=== PATIENT | female | born 1935 | race Caucasian/White ===

== ENCOUNTER 2021-06-20 22:02 | Inpatient (IN) ==
[2021-06-20] MEDS ORDERED: ACETAMINOPHEN 1,000 MG/100 ML VIAL IV STA (23:31)
[2021-06-20] MEDS ORDERED: MoRPHine SULFATE 2 MG/ML CARP IV STA (23:31)
--- NOTE | 2021-06-20 23:37 | Emergency Department Note ---
History of Present Illness General Chief complaint: Abdominal Pain Stated complaint: Abdominal Pain Time Seen by Provider: 06/20/21 23:04 Source: patient and family Mode of arrival: EMS Limitations: no limitations History of Present Illness Provider complaint: Flank pain Maximum Pain Intensity: 6 Treatments prior to arrival: none This is an 86-year-old female presents emergency department with son at bedside due to concern for flank and abdominal pain. Patient states she has not been feeling well over the last several days admitting to intermittent nausea and qu easiness and decreased oral intake. She states that today she began having left low back/flank pain radiating to her left lower quadrant of her abdomen. She states pain is colicky in nature, no change with position. She states she did have a normal bowel movement today. She denies fevers or chills or change in urine. Patient does have metastatic breast cancer according to the son at bedside and states her medications were recently changed due to a perceived adverse drug reaction. No other recent change in medications or diet. Patient follows with Dr. Nunn of oncology. Pt seen during a time of high acuity and national emergency pandemic while wearing PPE. Home Medications Medication Instructions Recorded Confirmed Type felodipine 10 mg tablet,extended 10 mg PO DAILY 02/05/20 06/20/21 History release 24 hr fluoxetine 20 mg capsule 20 mg PO DAILY 02/05/20 06/20/21 History furosemide 40 mg tablet 40 mg PO DAILY 02/05/20 06/20/21 History losartan 100 mg tablet 100 mg PO DAILY 02/05/20 06/20/21 History anastrozole 1 mg tablet (Arimidex) 1 mg PO DAILY 03/18/20 06/20/21 History aspirin 81 mg tablet,delayed 81 mg PO Q OTHER DAY tab 03/18/20 06/20/21 History release cholecalciferol (vitamin D3) 25 25 mcg PO DAILY 03/18/20 06/20/21 History mcg (1,000 unit) capsule acetaminophen 500 mg tablet 500 mg PO Q6H PRN tab 09/16/20 06/20/21 History (Tylenol Extra Strength) ascorbate calcium (vitamin C) 500 500 mg PO DAILY 09/16/20 06/20/21 History mg tablet docusate sodium 100 mg capsule 100 mg PO BID 09/16/20 06/20/21 History (Colace) rosuvastatin 40 mg tablet 40 mg PO HS 09/16/20 06/20/21 History sennosides 8.6 mg tablet (Senokot) 8.6 mg PO BID 09/16/20 06/20/21 History vit no.133-ferrous 1 tab PO DAILY 06/20/21 06/20/21 History fumarate 28 mg-folic acid 800 mcg tablet () vitamin E 400 unit capsule 400 unit PO DAILY 06/20/21 06/20/21 History Allergies Allergy/AdvReac Type Severity Reaction Status Date / Time Beta-Blockers Allergy Severe FACIAL/MOUTH Verified 06/20/21 22:41 (Beta-Adrenergic Bloc SWELLING Past Med/Surg History Medical History Bone metastases History of left breast cancer History of Mohs micrographic surgery for skin cancer Hx of basal cell carcinoma Hx of essential hypertension Hx of multiple pulmonary nodules Surgical History History of total bilateral knee replacement Hx of cholecystectomy Hx of total hysterectomy Family History Sister Heart disease Brother Heart disease Mother Cancer, Onset Age: 56 opened for surgery, found to be widespread metastasis Father Lung disease Son Hypertension Social History Smoking Status: Never smoker Second Hand Exposure: Yes; Hx Alcohol Use: No Hx Substance Use: No Preferred Language: Lithuanian Communication Ability: Effective Visual Impairment: Limited Hearing Ability: Hard of Hearing [employer] Required: No Beliefs That Will Affect Care: None marital status: / Current Living Situation: Alone Current Living Situation Comment: [facility]; sister lives nearby in same development current occupational status: 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 How many Children do You have: 1 Feels Safe at Home: Yes Childhood Exposure to Second-Hand Smoke: Yes caffeine: Yes (coffee 1 cup in am) during the past year weight has: decreased > 10 lbs Dental Care, Regularly: Yes Physical Activity Frequency: Does not Exercise Seatbelt Use: always Sunscreen Use: Yes Assistive Devices: Glasses, Hearing Aid - Bilateral and Walker Review of Systems A total of 10 systems reviewed and were otherwise negative All systems reviewed & are unremarkable except as noted in HPI & below Physical Exam Vital Signs Vital Signs - 24 hr 06/20/21 21:50 06/21/21 01:54 Temperature 37 C Temperature Source Oral Pulse Rate 83 Pulse Rate [Right] 69 Pulse Rhythm [Right] Regular Respiratory Rate 20 16 Respiratory Effort / Characteristics Non-Labored Non-Labored Respiratory Depth Normal Normal Blood Pressure 191/79 H Blood Pressure [Right Arm] 164/74 H Blood Pressure Mean 116 Blood Pressure Mean [Right Arm] 104 Pulse Oximetry 95 94 Oxygen Delivery Method Room Air Room Air Sepsis Recent Fever Within 48 Hours No Sepsis New/Unexplained Change in Mental Status No Sepsis Action Taken by Nursing No Action Required GENERAL: alert, unwell appearing, well nourished, mild distress, non-toxic EYE EXAM: normal conjunctiva, PERRL and EOM's grossly intact OROPHARYNX: no exudate, no erythema, lips, buccal mucosa, and tongue normal and mucous membranes are moist NECK: supple, no nuchal rigidity, no adenopathy, non-tender LUNGS: Clear to auscultation. Normal chest wall mechanics, no w/r/r HEART: no murmurs, S1 normal and S2 normal ABDOMEN: abdomen soft, non-tender, normo-active bowel sounds, no masses, no rebound or guarding. Pain with palpation over the left lateral flank. BACK: Back is symmetrical on inspection and there is no deformity, no midline tenderness, no CVA tenderness. SKIN: no rashes and no bruising UPPER EXTREMITIES: upper extremities are grossly normal. FROM, nml pulses b/l. LOWER EXTREMITIES: No pitting edema. FROM, nml pulses b/l. NEURO EXAM: Normal sensorium, cranial nerves II-XII grossly intact, normal speech, no gross weakness of arms, no gross weakness of legs. Gross sensation intact. Course Course 0315: Patient states pain is starting to return, nausea has resolved since being given medication. Patient was very unsteady and weak and attempting to get up and use the bathroom in the room. Son is concerned as she is from home and has no other help. He also has concerns about giving her additional pain medication as it could have side effects causing her to be a fall risk in addition. [id number]: Discussed with Dr. Walters. Administered Medications Sodium Chloride (Nss 1000ml) 1,000 mls @ 50 mls/hr IV .Q20H ONE Stop: 06/22/21 00:33 Last Admin: 06/21/21 06:21 Dose: 50 mls/hr Documented by: [id number] Discontinued Medications Acetaminophen (Ofirmev) 1,000 mg in 100 mls @ 400 mls/hr IV NOW STA Stop: 06/20/21 23:45 Last Infusion: 06/21/21 01:07 Dose: 0 mls/hr Documented by: [id number] Admin: 06/20/21 23:55 Dose: 400 mls/hr Documented by: [id number] Sodium Chloride (Nss 1000ml) 1,000 mls @ 500 mls/hr IV .Q2H VALENT[place] Stop: 07/21/21 00:29 Last Admin: 06/21/21 03:30 Dose: Not Given Documented by: [id number] Infusion: 06/21/21 03:29 Dose: 0 mls/hr Documented by: [id number] Admin: 06/21/21 01:00 Dose: 500 mls/hr Documented by: [id number] Sodium Chloride (Nss 1000ml) 1,000 mls @ 125 mls/hr IV .Q8H [place] Stop: 07/21/21 03:14 Last Admin: 06/21/21 04:51 Dose: Not Given Documented by: [id number] Ketorolac Tromethamine (Ketorolac Tromethamine 15 Mg/Ml Vial) 10 mg IV NOW ONE Stop: 06/21/21 03:17 Last Admin: 06/21/21 03:41 Dose: 10 mg Documented by: [id number] Losartan Potassium (Losartan Potassium 50 Mg Tab) 100 mg PO NOW STA Stop: 06/21/21 03:49 Last Admin: 06/21/21 04:50 Dose: 100 mg Documented by: [id number] Morphine Sulfate (Morphine Sulfate 2 Mg/Ml Carp) 2 mg IV NOW STA Stop: 06/20/21 23:32 Last Admin: 06/20/21 23:55 Dose: 2 mg Documented by: [id number] Morphine Sulfate (Morphine Sulfate 2 Mg/Ml Carp) 2 mg IV NOW STA Stop: 06/21/21 03:16 Last Admin: 06/21/21 03:42 Dose: 2 mg Documented by: [id number] Ondansetron HCl (Ondansetron Inj 2 Mg/Ml 2 Ml Vial) 4 mg IV NOW STA Stop: 06/20/21 23:52 Last Admin: 06/20/21 23:55 Dose: 4 mg Documented by: [id number] Medical Decision Making Differential Diagnosis Differential diagnoses includes but is not limited to gastritis, peptic ulcer disease, GERD, gallbladder disease, pancreatitis, small bowel obstruction, acute coronary syndrome, pericarditis, ischemic bowel, irritable bowel disease, irritable bowel syndrome, appendicitis, diverticulitis, malignancy, hernia, urinary tract infection, torsion, [/ectopic (if female)], perforation, trauma, infectious. Medical Records Attestation: I reviewed the patient's medical records. Home Medications Current Medication List: was personally reviewed by me Laboratory Data Attestation: I reviewed the patient's lab results. Result diagrams: 06/20/21 22:24 06/20/21 22:24 Lab Results 06/20/21 06/20/21 06/20/21 Range/Units 22:24 22:24 22:24 WBC 6.63 (4.8-10.8) K/uL RBC 4.46 (4.2-5.4) M/uL Hgb 12.3 (12.0-16.0) g/dL Hct 38.7 (37-47) % MCV 86.8 (80-100) fL MCH 27.6 (25-34) pg MCHC 31.8 L (32-36) g/dL RDW Std Deviation 55.1 H (36.4-46.3) fL RDW Coeff of Ravin 17.5 H (11.5-14.5) % Plt Count 302 (130-400) K/uL MPV 9.1 (7.4-10.4) fL Immature Gran % (Auto) 0.5 % Neut % (Auto) 70.7 % Lymph % (Auto) 17.6 % Dickenson % (Auto) 10.1 % Eos % (Auto) 0.9 % Baso % (Auto) 0.2 % Neut # (Auto) 4.69 (1.4-6.5) K/uL Lymph # (Auto) 1.17 L (1.2-3.4) K/uL Dickenson # (Auto) 0.67 H (0.11-0.59) K/uL Eos # (Auto) 0.06 (0-0.5) K/uL Baso # (Auto) 0.01 (0-0.2) K/uL Immature Gran # (Auto) 0.03 H (0.00-0.02) K/uL Sodium 133 L (136-145) mmol/L Potassium 3.9 (3.5-5.1) mmol/L Chloride 97 L (98-107) mmol/L Carbon Dioxide 25 (21-32) mmol/L Anion Gap 11 (3-11) BUN 16 (6-23) mg/dl Creatinine 0.57 L (0.6-1.2) mg/dl Est Cr Clr Drug Dosing 70.2 ml/min Est GFR ( Amer) 98.0 ml/min Est GFR (Non-Af Amer) 84.5 ml/min BUN/Creatinine Ratio 28.1 H (10-20) Glucose 146 H (70-99(Fasting)) mg/dl Calcium 9.5 (8.5-10.1) mg/dl Magnesium 2.2 (1.7-2.4) mg/dl Total Bilirubin 0.5 (0.2-1.0) mg/dl AST 16 (13-39) U/L ALT 9 (7-52) U/L Alkaline Phosphatase 69 (34-104) U/L Total Creatine Kinase 27 (26-192) U/L Total Protein 7.8 (6.0-8.3) gm/dl Albumin 4.1 (3.4-5.0) gm/dl Globulin 3.7 (2.5-4.0) gm/dl Albumin/Globulin Ratio 1.1 (0.9-2) Lipase 23 (11-82) U/L TSH (0.300-4.500) uIu/ml Urine Color Urine Appearance (Clear) Urine pH (4.5-7.5) Ur Specific [place] (1.000-1.030) Urine Protein (Negative) Urine Glucose (UA) (Negative) Urine Ketones (Negative) Urine Blood (Negative) Urine Nitrite (Negative) Urine Bilirubin (Negative) Urine Urobilinogen (Negative) Ur Leukocyte Esterase (Negative) Urine WBC (Auto) (0-5) /hpf Urine RBC (Auto) (0-4) /hpf U Hyaline Cast (Auto) (0-5) /lpf U Epithel Cells (Auto) (0-5) /lpf Urine Bacteria (Auto) (Negative) Ur Renal Epithelial Cell (0-5) /lpf SARS-CoV-2, RNA, NAAT (NEGATIVE) 06/20/21 06/21/21 06/21/21 Range/Units 22:24 02:19 03:46 WBC (4.8-10.8) K/uL RBC (4.2-5.4) M/uL Hgb (12.0-16.0) g/dL Hct (37-47) % MCV (80-100) fL MCH (25-34) pg MCHC (32-36) g/dL RDW Std Deviation (36.4-46.3) fL RDW Coeff of Ravin (11.5-14.5) % Plt Count (130-400) K/uL MPV (7.4-10.4) fL Immature Gran % (Auto) % Neut % (Auto) % Lymph % (Auto) % Dickenson % (Auto) % Eos % (Auto) % Baso % (Auto) % Neut # (Auto) (1.4-6.5) K/uL Lymph # (Auto) (1.2-3.4) K/uL Dickenson # (Auto) (0.11-0.59) K/uL Eos # (Auto) (0-0.5) K/uL Baso # (Auto) (0-0.2) K/uL Immature Gran # (Auto) (0.00-0.02) K/uL Sodium (136-145) mmol/L Potassium (3.5-5.1) mmol/L Chloride (98-107) mmol/L Carbon Dioxide (21-32) mmol/L Anion Gap (3-11) BUN (6-23) mg/dl Creatinine (0.6-1.2) mg/dl Est Cr Clr Drug Dosing ml/min Est GFR ( Amer) ml/min Est GFR (Non-Af Amer) ml/min BUN/Creatinine Ratio (10-20) Glucose (70-99(Fasting)) mg/dl Calcium (8.5-10.1) mg/dl Magnesium (1.7-2.4) mg/dl Total Bilirubin (0.2-1.0) mg/dl AST (13-39) U/L ALT (7-52) U/L Alkaline Phosphatase (34-104) U/L Total Creatine Kinase (26-192) U/L Total Protein (6.0-8.3) gm/dl Albumin (3.4-5.0) gm/dl Globulin (2.5-4.0) gm/dl Albumin/Globulin Ratio (0.9-2) Lipase (11-82) U/L TSH 3.216 (0.300-4.500) uIu/ml Urine Color Yellow Urine Appearance Clear (Clear) Urine pH 7.0 (4.5-7.5) Ur Specific [place] 1.012 (1.000-1.030) Urine Protein Trace H (Negative) Urine Glucose (UA) Negative (Negative) Urine Ketones Negative (Negative) Urine Blood Negative (Negative) Urine Nitrite Negative (Negative) Urine Bilirubin Negative (Negative) Urine Urobilinogen Negative (Negative) Ur Leukocyte Esterase Trace H (Negative) Urine WBC (Auto) 1-5 (0-5) /hpf Urine RBC (Auto) 0-4 (0-4) /hpf U Hyaline Cast (Auto) 1-5 (0-5) /lpf U Epithel Cells (Auto) >30 H (0-5) /lpf Urine Bacteria (Auto) Negative (Negative) Ur Renal Epithelial Cell 0-5 (0-5) /lpf SARS-CoV-2, RNA, NAAT NEGATIVE (NEGATIVE) Imaging Data Radiologist's Impression: CT abdomen pelvis without contrast: Comparison is made to CT abdomen/pelvis on 02/05/2020. Moderate right and small left pleural effusions. Nonspecific nodular density in the left breast measuring approximately 2.2 cm. This may represent neoplasm. Probably increased prominence of a 1.4 cm nodule in the lingula. Probable 8 mm nodule at the left lung base posteriorly. 1.1 cm nodular density in the lingula. These could represent pulmonary metastases. Sclerotic lesions throughout the visualized bones. Concerning for osseous metastases. Coronary artery, aortic valve, and mitral annular calcifications. Small hiatal hernia. Evaluation of the stomach was limited by under distention. Prior cystectomy. No h ydronephrosis or stone. Phleboliths in the pelvis. Diverticulosis without evidence of diverticulitis. No small bowel obstruction. Normal appendix. Atherosclerotic changes of the vasculature. No aortic aneurysm. Grade 1 anterolisthesis of L4 on L5. Distended bladder. No significant bladder wall thickening or stone. Prior hysterectomy. Small fat-containing umbilical hernia. Radiologist: Nagi Jaramillo MD MDM Narrative This is an 86-year-old female who presents emergency department from home due to concern for increased abdominal pain, nausea, and decreased oral intake. Son at bedside helps with history. Patient does have known distant metastases from breast cancer that is being followed by Dr. Nunn of oncology. Patient was afebrile and hemodynamically stable although actively retching into an emesis bag on my initial evaluation. Patient given Zofran for nausea and morphine for pain which did help. Patient was given gentle IV fluid rehydration. Labs are reassuring, and CT imaging did reveal multiple areas of metastasis however no other acute process. Urinalysis reassuring. Patient did receive several doses of pain medication. She did not have any further nausea or vomiting. Due to concern for persistent weakness, and need for appropriate pain control in an elderly woman with known malignancy, case discussed with hospitalist for additional evaluation and management. An order was placed for continuous cardiac monitoring. The monitor shows a rate of _60_ with _normal sinus_ rhythm. Impression & Plan Acute left flank pain, Metastatic breast cancer, Abdominal pain, Nausea, Generalized weakness Discharge Plan Visit Data Chief Complaint: Abdominal Pain Stated Complaint: Abdominal Pain ED Provider: Noris Coppola Discharge Problem: Acute left flank pain, Metastatic breast cancer, Abdominal pain, Nausea, Generalized weakness Patient Disposition: Admitted As Inpatient Discharge Instructions Interventions: ED Discharge Assessment Last Done: 06/21/21 05:51
[2021-06-20 23:44] LABS: Basophils # (auto) 0.01 K/uL (0-0.2); Basophils % (auto) 0.2 %; Eosinophils # (auto) 0.06 K/uL (0-0.5); Eosinophils % (auto) 0.9 %; Hematocrit (blood only) 38.7 % (37-47); Hemoglobin 12.3 g/dL (12.0-16.0); Immature Granulocytes # (auto) 0.03 K/uL (0.00-0.02); Immature Granulocytes % (auto) 0.5 %; Lymphocytes # (auto) 1.17 K/uL (1.2-3.4); Lymphocytes % (auto) 17.6 %; Mean Corpuscular Hemoglobin 27.6 pg (25-34); Mean Corpuscular Hgb Conc 31.8 g/dL (32-36); Mean Corpuscular Volume 86.8 fL (80-100); Mean Platelet Volume 9.1 fL (7.4-10.4); Monocytes # (auto) 0.67 K/uL (0.11-0.59); Monocytes % (auto) 10.1 %; Neutrophils # (auto) 4.69 K/uL (1.4-6.5); Neutrophils % (auto) 70.7 %; Platelet Count 302 K/uL (130-400); RDW Coefficient of Variation 17.5 % (11.5-14.5); RDW Standard Deviation 55.1 fL (36.4-46.3); Red Blood Count 4.46 M/uL (4.2-5.4); White Blood Count 6.63 K/uL (4.8-10.8)
[2021-06-20] MEDS ORDERED: ONDANSETRON INJ 2 MG/ML 2 ML VIAL IV STA (23:51)
[2021-06-20 23:53] LABS: Albumin Globulin Ratio 1.1 (0.9-2); Albumin Level 4.1 gm/dl (3.4-5.0); BUN Creatinine Ratio 28.1 (10-20); Bilirubin,Total 0.5 mg/dl (0.2-1.0); Calcium 9.5 mg/dl (8.5-10.1); Creatinine Clr Calc Pharmacy 70.2 ml/min; Est GFR (Non-African American) 84.5 ml/min; Globulin 3.7 gm/dl (2.5-4.0); Magnesium 2.2 mg/dl (1.7-2.4); Potassium 3.9 mmol/L (3.5-5.1); Total Protein 7.8 gm/dl (6.0-8.3)
[2021-06-21] MEDS: SODIUM CHLORIDE 0.9% 1000ML 1,000 ML IV SCH ×2 (01:00→03:30)
[2021-06-21 02:31] LABS: Appearance Urine Clear (Clear); Bacteria Urine Automated Negative (Negative); Bilirubin Urine Negative (Negative); Blood Urine Negative (Negative); Color Urine Yellow; Epithelial Cell Urine Auto >30 /lpf (0-5); Glucose Urine UA Negative (Negative); Ketones Urine Negative (Negative); Leukocyte Esterase Urine Trace (Negative); Nitrite Urine Negative (Negative); Protein Urine Trace (Negative); RBC Urine Automated 0-4 /hpf (0-4); Specific Gravity Urine 1.012 (1.000-1.030); Urobilinogen Urine Negative (Negative)
[2021-06-21 02:49] LABS: Renal Epithelial Cells Urine 0-5 /lpf (0-5)
[2021-06-21] MEDS ORDERED: SODIUM CHLORIDE 0.9% 1000ML 1,000 ML IV SCH (03:15)
[2021-06-21] MEDS ORDERED: MoRPHine SULFATE 2 MG/ML CARP IV STA (03:15)
[2021-06-21] MEDS ORDERED: KETOROLAC TROMETHAMINE 15 MG/ML VIAL IV ONE (03:16)
--- NOTE | 2021-06-21 03:39 | History & Physical Report ---
Date of Service June 21, 2021 Assessment & Plan (1) Flank pain: Plan: Probably cancer pain breast cancer with lung and bone mets status post surgery, radiation, ongoing hormonal and Xgeva therapy Extensive osseous mets on imaging Hypertensive urgency secondary to above Hyperlipidemia on statin Rx DM2 diet-controlled, well-controlled as of recent hemoglobin A1c of 6.1 last year. GMF Analgesia Follow official CT results Further management pending official CT results and response to initial analgesic regimen Facilitate home BP meds Basal insulin, ISS BG goal 1 10-1 40, carb count coverage, update hemoglobin A1c DVT prophylaxis. Lovenox subcu DNR. Patient son requesting updates for providers. Mr. Rajinder Medel, contact #[phone]. Text document was generated using [employer] voice recognition software. It may contain grammatical or spelling errors. Kindly contact undersigned for clarification of any documentation item in question. History of Present Illness Chief Complaint: Worsening left flank pain Primary Care Provider: Tawana Nunn MD History obtained from patient, family, and records. Medical history significant for hypertension, hyperlipidemia, breast cancer with lung and bone mets status radiation, ongoing hormonal and Xgeva therapy, anxiety disorder, DM2 diet-controlled. Patient noted worsening achy left flank discomfort last week. No relief with Tylenol. Some radiation to the belly. No radiation to the legs/no weakness. No chest pain, no SOB. No hematuria symptoms. No recollection of recent trauma.0 Intractable pain at the ER. 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 Allergies Allergy/AdvReac Type Severity Reaction Status Date / Time Beta-Blockers Allergy Severe FACIAL/MOUTH Verified 06/20/21 22:41 (Beta-Adrenergic Bloc SWELLING Home Medications Medication Instructions Recorded Confirmed Type felodipine 10 mg tablet,extended 10 mg PO DAILY 02/05/20 06/20/21 History release 24 hr fluoxetine 20 mg capsule 20 mg PO DAILY 02/05/20 06/20/21 History furosemide 40 mg tablet 40 mg PO DAILY 02/05/20 06/20/21 History losartan 100 mg tablet 100 mg PO DAILY 02/05/20 06/20/21 History anastrozole 1 mg tablet (Arimidex) 1 mg PO DAILY 03/18/20 06/20/21 History aspirin 81 mg tablet,delayed 81 mg PO Q OTHER DAY tab 03/18/20 06/20/21 History release cholecalciferol (vitamin D3) 25 25 mcg PO DAILY 03/18/20 06/20/21 History mcg (1,000 unit) capsule acetaminophen 500 mg tablet 500 mg PO Q6H PRN tab 09/16/20 06/20/21 History (Tylenol Extra Strength) ascorbate calcium (vitamin C) 500 500 mg PO DAILY 09/16/20 06/20/21 History mg tablet docusate sodium 100 mg capsule 100 mg PO BID 09/16/20 06/20/21 History (Colace) rosuvastatin 40 mg tablet 40 mg PO HS 09/16/20 06/20/21 History sennosides 8.6 mg tablet (Senokot) 8.6 mg PO BID 09/16/20 06/20/21 History vit no.133-ferrous 1 tab PO DAILY 06/20/21 06/20/21 History fumarate 28 mg-folic acid 800 mcg tablet () vitamin E 400 unit capsule 400 unit PO DAILY 06/20/21 06/20/21 History Past Med/Surg History Medical History Bone metastases History of left breast cancer History of Mohs micrographic surgery for skin cancer Hx of basal cell carcinoma Hx of essential hypertension Hx of multiple pulmonary nodules Surgical History History of total bilateral knee replacement Hx of cholecystectomy Hx of total hysterectomy Family History Sister Heart disease Brother Heart disease Mother Cancer, Onset Age: 56 opened for surgery, found to be widespread metastasis Father Lung disease Son Hypertension Social History Smoking Status: Never smoker Second Hand Exposure: No; Do You Dip or Chew Tobacco: No; Tobacco Cessation Education Requested by Patient: No Hx Alcohol Use: No Hx Substance Use: No Preferred Language: British Communication Ability: Effective Visual Impairment: Limited Hearing Ability: Hard of Hearing Clip Coater Required: No Beliefs That Will Affect Care: None marital status: / Current Living Situation: Other Current Living Situation Comment: [place] (Apartment complex). 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 How many Children do You have: 1 Other Information That Helps Us Care for You: No Feels Safe at Home: Yes Safety Concerns: Feels Safe At This Time Childhood Exposure to Second-Hand Smoke: Yes caffeine: Yes (coffee 1 cup in am) during the past year weight has: decreased > 10 lbs Dental Care, Regularly: Yes Physical Activity Frequency: Does not Exercise Seatbelt Use: always Sunscreen Use: Yes Assistive Devices: Glasses, Hearing Aid - Bilateral, Oxygen - at Night and Walker Review of Systems Review of Systems: As per HPI, all other systems reviewed and negative Physical Exam Physical Exam: GENERAL: Slightly uncomfortable, pleasant, obese, no respiratory distress SKIN: Normal color, warm HEENT: [place] palpebral conjunctivae, no ptosis, dry buccal mucosa NECK : Supple, short neck, no tenderness CHEST : CTA, no tenderness HEART : RRR, no obvious murmurs ABDOMEN: Some distention, nontender BACK : Left flank tenderness EXTREMITIES : Minimal LE swelling, no LE tenderness, no other conspicuous deformities noted NEUROLOGIC : Coherent, no facial asymmetry, no other gross focality Results & Data Results & Data ([facility]) Vital Signs (Past 12 Hours) Vital Signs Temp Pulse Pulse Resp BP BP Pulse Ox 06/21/21 01:54 69 16 164/74 H 94 06/20/21 21:50 37 C 83 20 191/79 H 95 Laboratory Results Laboratory Results WBC 6.63 K/uL (4.8-10.8) 06/20/21 22:24 RBC 4.46 M/uL (4.2-5.4) 06/20/21 22:24 Hgb 12.3 g/dL (12.0-16.0) 06/20/21 22:24 Hct 38.7 % (37-47) 06/20/21 22:24 MCV 86.8 fL (80-100) 06/20/21 22:24 MCH 27.6 pg (25-34) 06/20/21 22:24 MCHC 31.8 g/dL (32-36) L 06/20/21 22:24 RDW Std Deviation 55.1 fL (36.4-46.3) H 06/20/21 22:24 RDW Coeff of [place] 17.5 % (11.5-14.5) H 06/20/21 22:24 Plt Count 302 K/uL (130-400) 06/20/21 22:24 MPV 9.1 fL (7.4-10.4) 06/20/21 22:24 Immature Gran % (Auto) 0.5 % 06/20/21 22:24 Neut % (Auto) 70.7 % 06/20/21 22:24 Lymph % (Auto) 17.6 % 06/20/21 22:24 [place] % (Auto) 10.1 % 06/20/21 22:24 Eos % (Auto) 0.9 % 06/20/21 22:24 Baso % (Auto) 0.2 % 06/20/21 22:24 Neut # (Auto) 4.69 K/uL (1.4-6.5) 06/20/21 22:24 Lymph # (Auto) 1.17 K/uL (1.2-3.4) L 06/20/21 22:24 [place] # (Auto) 0.67 K/uL (0.11-0.59) H 06/20/21 22:24 Eos # (Auto) 0.06 K/uL (0-0.5) 06/20/21 22:24 Baso # (Auto) 0.01 K/uL (0-0.2) 06/20/21 22:24 Immature Gran # (Auto) 0.03 K/uL (0.00-0.02) H 06/20/21 22:24 Sodium 133 mmol/L (136-145) L 06/20/21 22:24 Potassium 3.9 mmol/L (3.5-5.1) 06/20/21 22:24 Chloride 97 mmol/L (98-107) L 06/20/21 22:24 Carbon Dioxide 25 mmol/L (21-32) 06/20/21 22:24 Anion Gap 11 (3-11) 06/20/21 22:24 BUN 16 mg/dl (6-23) 06/20/21 22:24 Creatinine 0.57 mg/dl (0.6-1.2) L 06/20/21 22:24 Est Cr Clr Drug Dosing 70.2 ml/min 06/20/21 22:24 Est GFR ( Amer) 98.0 ml/min 06/20/21 22:24 Est GFR (Non-Af Amer) 84.5 ml/min 06/20/21 22:24 BUN/Creatinine Ratio 28.1 (10-20) H 06/20/21 22:24 Glucose 146 mg/dl (70-99(Fasting)) H 06/20/21 22:24 Calcium 9.5 mg/dl (8.5-10.1) 06/20/21 22:24 Magnesium 2.2 mg/dl (1.7-2.4) 06/20/21 22:24 Total Bilirubin 0.5 mg/dl (0.2-1.0) 06/20/21 22:24 AST 16 U/L (13-39) 06/20/21 22:24 ALT 9 U/L (7-52) 06/20/21 22:24 Alkaline Phosphatase 69 U/L (34-104) 06/20/21 22:24 Total Protein 7.8 gm/dl (6.0-8.3) 06/20/21 22:24 Albumin 4.1 gm/dl (3.4-5.0) 06/20/21 22:24 Globulin 3.7 gm/dl (2.5-4.0) 06/20/21 22:24 Albumin/Globulin Ratio 1.1 (0.9-2) 06/20/21 22:24 Lipase 23 U/L (11-82) 06/20/21 22:24 Urine Color Yellow 06/21/21 02:19 Urine Appearance Clear (Clear) 06/21/21 02:19 Urine pH 7.0 (4.5-7.5) 06/21/21 02:19 Ur Specific [place] 1.012 (1.000-1.030) 06/21/21 02:19 Urine Protein Trace (Negative) H 06/21/21 02:19 Urine Glucose (UA) Negative (Negative) 06/21/21 02:19 Urine Ketones Negative (Negative) 06/21/21 02:19 Urine Blood Negative (Negative) 06/21/21 02:19 Urine Nitrite Negative (Negative) 06/21/21 02:19 Urine Bilirubin Negative (Negative) 06/21/21 02:19 Urine Urobilinogen Negative (Negative) 06/21/21 02:19 Ur Leukocyte Esterase Trace (Negative) H 06/21/21 02:19 Urine WBC (Auto) 1-5 /hpf (0-5) 06/21/21 02:19 Urine RBC (Auto) 0-4 /hpf (0-4) 06/21/21 02:19 U Hyaline Cast (Auto) 1-5 /lpf (0-5) 06/21/21 02:19 U Epithel Cells (Auto) >30 /lpf (0-5) H 06/21/21 02:19 Urine Bacteria (Auto) Negative (Negative) 06/21/21 02:19 Ur Renal Epithelial Cell 0-5 /lpf (0-5) 06/21/21 02:[address] abdomen pelvis initial read: Moderate right and small left pleural effusions. Nonspecific nodular densityin the left breast measuring approximately2.2 cm. This mayrepresent neoplasm. Probablyincreased prominence of a 1.4 cmnodule in the lingula. Probable 8 mmnodule at the left lung base posteriorly. 1.1 cmnodular densityin the lingula. These could represent pulmonary metastases. Sclerotic lesions throughout the visualized bones, concerning for osseous metastases. Coronaryartery, aortic valve, and mitral annular calcifications. Small hiatal hernia. Evaluation of the stomach is limited byunderdistention. Prior cholecystectomy. No hydronephrosis or stone. Phleboliths in the pelvis. Diverticulosiswithout evidence of diverticulitis. No small bowel obstruction. Normal appendix. Atherosclerotic changes of the vasculature. No aortic aneurysm. Grade 1 anterolisthesis of L4 on L5. Distended bladder. No significant bladder wall thickening or stone. Prior hysterectomy. Small fat-containing umbilical hernia EKG as per my interpretation: Rate 80, NSR, normal axis, T wave abnormalities lateral leads
[2021-06-21] MEDS ORDERED: LOSARTAN POTASSIUM 50 MG TAB PO STA (03:48)
[2021-06-21] MEDS ORDERED: oxyCODONE HCL IR 5 MG TAB (IMMEDIATE RELEASE) PO PRN (04:34)
[2021-06-21] MEDS ORDERED: SODIUM CHLORIDE 0.9% 1000ML 1,000 ML IV ONE (04:34)
[2021-06-21] MEDS ORDERED: PROMETHAZINE HCL 12.5 MG in SODIUM CHLORIDE 0.9% 50 ML IV PRN (04:34)
[2021-06-21] MEDS ORDERED: MoRPHine SULFATE 2 MG/ML CARP IV PRN (04:34)
[2021-06-21] MEDS ORDERED: ACETAMINOPHEN 325 MG TAB PO PRN (04:34)
[2021-06-21] MEDS ORDERED: GLUCOSE 10 TABS/TUBE PO PRN (06:13)
[2021-06-21] MEDS ORDERED: GLUCOSE 40% GEL 15 GM TUBE PO PRN (06:13)
[2021-06-21] MEDS ORDERED: GLUCAGON FOR INJ 1 MG VIAL SQ PRN (06:13)
[2021-06-21] MEDS ORDERED: DEXTROSE 50% 50 ML SYRINGE IV PRN (06:13)
[2021-06-21] MEDS ORDERED: CARBOHYDRATES FOR HYPOGLYCEMIA PO PRN (06:13)
[2021-06-21] MEDS: INSULIN ASPART PER UNIT SC SCH ×4 (06:41→21:07)
[2021-06-21 06:47] LABS: Basophils # (auto) 0.01 K/uL (0-0.2); Basophils % (auto) 0.2 %; Eosinophils # (auto) 0.05 K/uL (0-0.5); Hematocrit (blood only) 36.4 % (37-47); Hemoglobin 11.3 g/dL (12.0-16.0); Immature Granulocytes # (auto) 0.01 K/uL (0.00-0.02); Immature Granulocytes % (auto) 0.2 %; Lymphocytes # (auto) 1.22 K/uL (1.2-3.4); Lymphocytes % (auto) 25.2 %; Mean Corpuscular Hemoglobin 27.2 pg (25-34); Mean Corpuscular Volume 87.5 fL (80-100); Monocytes # (auto) 0.48 K/uL (0.11-0.59); Monocytes % (auto) 9.9 %; Neutrophils # (auto) 3.08 K/uL (1.4-6.5); Neutrophils % (auto) 63.5 %; Platelet Count 267 K/uL (130-400); RDW Coefficient of Variation 17.5 % (11.5-14.5); RDW Standard Deviation 54.8 fL (36.4-46.3); Red Blood Count 4.16 M/uL (4.2-5.4); White Blood Count 4.85 K/uL (4.8-10.8)
[2021-06-21 07:05] LABS: Calcium 8.6 mg/dl (8.5-10.1); Creatinine Clr Calc Pharmacy 81.2 ml/min; Est GFR (African American) 102.3 ml/min; Est GFR (Non-African American) 88.3 ml/min
--- NOTE | 2021-06-21 08:42 | CT Scan Report ---
CT OF THE ABDOMEN AND PELVIS WITHOUT CONTRAST CLINICAL HISTORY: left back/flank pain into abdomen, hx cancer COMPARISON STUDY: PET/CT March 17, 2020. CT of the abdomen and pelvis February 05, 2020. Treatment planning CT April 25, 2020. TECHNIQUE: Axial images of the abdomen and pelvis were obtained without IV contrast. Images were revi ewed in the axial, sagittal, and coronal planes. Automated exposure control was utilized for the maki dy. A dose lowering technique was utilized adhering to the principles of ALARA. FINDINGS: A left breast 12:00 mass is partially imaged. This measures at least 2.7 cm. This may refle ct the primary neoplasm. This was shown on prior PET/CT. Moderate right and trace left pleural effusi ons are partially imaged. Right cardiophrenic angle node measures 2 x 1.2 cm. This has increased in s ize since PET/CT of March 17, 2020. Suspected right pleural implants are present. A 1.4 cm lingular nodule has also increased in size. A few left lower lobe nodules have slightly increased in size sin ce prior PET/CT. No pneumatosis, free air or portal venous gas is present. No renal, ureteral or blad roopa calculi are present. Evaluation of the abdomen and pelvis is suboptimal on this unenhanced exam. There is no biliary ductal dilatation status post cholecystectomy. Unenhanced images of the liver, sp gordon, adrenal glands and kidneys are unremarkable. There is no hydronephrosis. No evidence for a mateusz l obstruction. Sigmoid diverticulosis is noted without evidence for acute diverticulitis. Moderate am ount stool within the right colon is present. There is no ascites. Extensive mixed lytic and scleroti c skeletal metastatic disease is noted. Lesions are more conspicuous treatment planning CT of Februar 2020. This favors disease progression although pleural metastases are difficult to assess by CT . Right femoral internal fixation is partially imaged. There are multiple pathologic bilateral rib fr actures. Several mild pathologic fractures within the lower thoracic and lumbar spine are probably ch ronic. No definite acute fractures. IMPRESSION: 1. No urinary calculi or hydronephrosis. No acute process within the abdomen or pelvis on unenhanced exam. Mild bladder distention. 2. Interval development of a moderate right pleural effusion since prior PET/CT. This is likely malig nant. Trace left pleural effusion. 3. Increase in size of several pulmonary nodules and right cardiophrenic angle nodes consistent with progression of metastatic disease. 4. Extensive mixed lytic and sclerotic skeletal metastatic disease which has likely progressed. Sever al mild lower thoracic and lumbar spine pathologic fractures and multiple pathologic bilateral rib fr actures. These are probably old. ACT 112: Negative or not required by law. Electronically signed by: Abdoul Cuba M.D. 06/21/2021 8:40 AM
[2021-06-21] MEDS ORDERED: FELODIPINE 5 MG TABCR PO SCH (09:00)
[2021-06-21] MEDS: FLUoxetine HCL 20 MG CAP PO SCH (09:32)
[2021-06-21] MEDS: SENNA 8.6 MG TAB PO SCH ×2 (09:32→20:13)
[2021-06-21] MEDS: FELODIPINE 5 MG TABCR PO SCH (09:32)
[2021-06-21] MEDS: DOCUSATE SODIUM 100 MG CAP PO SCH ×2 (09:32→20:13)
[2021-06-21] MEDS: ANASTROZOLE 1 MG TAB PO SCH (09:32)
[2021-06-21] MEDS: PRENATAL VITAMIN 1 TAB PO SCH (09:32)
[2021-06-21] MEDS: ENOXAPARIN INJ 40 MG/0.4 ML SYR SQ SCH (09:32)
--- NOTE | 2021-06-21 11:58 | Electrocardiogram Report ---
Test Reason : Blood Pressure : / mmHG Vent. Rate : 078 BPM Atrial Rate : 078 BPM P-R Int : 178 ms QRS Dur : 080 ms QT Int : 374 ms P-R-T Axes : 082 009 042 degrees QTc Int : 426 ms Normal sinus rhythm Normal ECG When compared with ECG of 26-FEB-2020 10:16, No significant change was found Confirmed by Cuco Hsieh ([id number]) on 06/21/2021 11:57:54 AM Referred By: REFERRED SELF Confirmed By:Cuco Hsieh
--- NOTE | 2021-06-21 17:04 | Hospitalist Progress Note ---
Date of Service June 21, 2021 Assessment & Plan (1) Abdominal pain: (2) Flank pain: Plan: Present on admission with L matilde pain/abdominal pain CT abd/pelvis showed no acute process within the abdomen or pelvis on unenhanced exam. Tolerated clear liquid diet, Will advanced as tolerated clinically stable Moderate Pleural effusion Interval development of a moderate right pleural effusion since prior PET/CT. Denies any SOB Will resume lasix Breast cancer with lung and bone mets status post surgery, radiation, ongoing hormonal and Xgeva therapy CT showed Increase in size of several pulmonary nodules and right cardiophrenic angle nodes consistent with progression of metastatic disease. Extensive mixed lytic and sclerotic skeletal metastatic disease which has likely progressed HTN Continue monitor BP DVT px on Lovenox Disposition Plan to discharge to rehab Admission and Anticipated Discharge Date Admission Date: June 21, 2021 Subjective Pt was seen and examined for follow up of abdominal pain Lying in bed with no acute distress Pt said that she feels much better She said that she is not having any pain She said that she feels good Denies any chest pain, palpitation, dizziness and SOB Review of Systems Review of Systems: All systems reviewed & are unremarkable except as noted in Subjective Physical Exam Physical Exam: General- No acute distress Head- atraumatic Eyes- PERRL, EOMI, ENT- oropharynx clear Neck- supple, no JVD Lungs- clear to auscultation Heart- regular rhythm; no murmur Abdomen- normal bowel sounds, soft, nontender Extremities- no calf tenderness Neuro- alert, oriented x 3; PERRL, EOMI; no facial palsy; no dysarthria Skin- warm & dry Results & Data Results & Data ([facility]) Vital Signs (Past 12 Hours) Vital Signs Temp Pulse Resp BP Pulse Ox 06/21/21 16:10 36.7 C 62 18 160/75 H 95 06/21/21 08:03 36.4 C L 58 L 16 133/62 95 06/21/21 06:00 36.8 C 67 14 155/74 H 98
[2021-06-21] MEDS ORDERED: ROSUVASTATIN CALCIUM 20 MG TAB PO SCH (21:00)
[2021-06-22 07:45] VITALS: O2SAT 91
[2021-06-22 08:34] LABS: BUN Creatinine Ratio 22.7 (10-20); Calcium 8.9 mg/dl (8.5-10.1); Creatinine Clr Calc Pharmacy 92.3 ml/min; Est GFR (African American) 106.7 ml/min; Potassium 4.1 mmol/L (3.5-5.1)
[2021-06-22] MEDS: FLUoxetine HCL 20 MG CAP PO SCH (08:37)
[2021-06-22] MEDS: DOCUSATE SODIUM 100 MG CAP PO SCH (08:37)
[2021-06-22] MEDS: ANASTROZOLE 1 MG TAB PO SCH (08:37)
[2021-06-22] MEDS: SENNA 8.6 MG TAB PO SCH (08:38)
[2021-06-22] MEDS: PRENATAL VITAMIN 1 TAB PO SCH (08:38)
[2021-06-22] MEDS: FELODIPINE 5 MG TABCR PO SCH (08:38)
[2021-06-22] MEDS: ENOXAPARIN INJ 40 MG/0.4 ML SYR SQ SCH (08:38)
[2021-06-22] MEDS: INSULIN ASPART PER UNIT SC SCH ×2 (08:43→12:45)
[2021-06-22] MEDS ORDERED: LOSARTAN POTASSIUM 50 MG TAB PO SCH (09:00)
[2021-06-22] MEDS ORDERED: ASPIRIN 81 MG ECTAB PO SCH (09:00)
[2021-06-22 09:38] LABS: Estimated Average Glucose 154 mg/dl
[2021-06-22 15:24] VITALS: PULSE 77; TEMP 97.9
[2021-06-22 15:34] VITALS: BP 154/73
--- NOTE | 2021-06-25 08:16 | Discharge Summary ---
Date of Service June 22, 2021 Admission HPI Per Admitting Provider History obtained from patient, family, and records. Medical history significant for hypertension, hyperlipidemia, breast cancer with lung and bone mets status radiation, ongoing hormonal and Xgeva therapy, anxiety disorder, DM2 diet-controlled. Patient noted worsening achy left flank discomfort last week. No relief with Tylenol. Some radiation to the belly. No radiation to the legs/no weakness. No chest pain, no SOB. No hematuria symptoms. No recollection of recent trauma.0 Intractable pain at the ER. 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 Admission Exam Per Admitting Provider GENERAL: Slightly uncomfortable, pleasant, obese, no respiratory distress SKIN: Normal color, warm HEENT: [place] palpebral conjunctivae, no ptosis, dry buccal mucosa NECK : Supple, short neck, no tenderness CHEST : CTA, no tenderness HEART : RRR, no obvious murmurs ABDOMEN: Some distention, nontender BACK : Left flank tenderness EXTREMITIES : Minimal LE swelling, no LE tenderness, no other conspicuous deformities noted NEUROLOGIC : Coherent, no facial asymmetry, no other gross focality Principal Diagnosis (1) Abdominal pain: (2) Flank pain: Discharge Exam General- No acute distress Head- atraumatic Eyes- PERRL, EOMI, ENT- oropharynx clear Neck- supple, no JVD Lungs- clear to auscultation Heart- regular rhythm; no murmur Abdomen- normal bowel sounds, soft, nontender Extremities- no calf tenderness Neuro- alert, oriented x 3; PERRL, EOMI; no facial palsy; no dysarthria Skin- warm & dry Discharge Data Allergies Allergy/AdvReac Type Severity Reaction Status Date / Time Beta-Blockers Allergy Severe FACIAL/MOUTH Verified 06/20/21 22:41 (Beta-Adrenergic Bloc SWELLING Consultations 06/21/21 04:10 ED Decision to Admit Stat Ordered Studies 06/21/21 00:30 CT abd pelvis wo con Urgent CT OF THE ABDOMEN AND PELVIS WITHOUT CONTRAST CLINICAL HISTORY: left back/flank pain into abdomen, hx cancer COMPARISON STUDY: PET/CT March 17, 2020. CT of the abdomen and pelvis February 05, 2020. Treatment planning CT April 25, 2020. TECHNIQUE: Axial images of the abdomen and pelvis were obtained without IV contrast. Images were reviewed in the axial, sagittal, and coronal planes. Automated exposure control was utilized for the study. A dose lowering technique was utilized adhering to the principles of ALARA. FINDINGS: A left breast 12:00 mass is partially imaged. This measures at least 2.7 cm. This may reflect the primary neoplasm. This was shown on prior PET/CT. Moderate right and trace left pleural effusions are partially imaged. Right cardiophrenic angle node measures 2 x 1.2 cm. This has increased in size since PET/CT of March 17, 2020. Suspected right pleural implants are present. A 1.4 cm lingular nodule has also increased in size. A few left lower lobe nodules have slightly increased in size since prior PET/CT. No pneumatosis, free air or portal venous gas is present. No renal, ureteral or bladder calculi are present. Evaluation of the abdomen and pelvis is suboptimal on this unenhanced exam. There is no biliary ductal dilatation status post cholecystectomy. Unenhanced images of the liver, spleen, adrenal glands and kidneys are unremarkable. There is no hydronephrosis. No evidence for a bowel obstruction. Sigmoid diverticulosis is noted without evidence for acute diverticulitis. Moderate amount stool within the right colon is present. There is no ascites. Extensive mixed lytic and sclerotic skeletal metastatic disease is noted. Lesions are more conspicuous treatment planning CT of April 25, 2020. This favors disease progression although pleural metastases are difficult to assess by CT. Right femoral internal fixation is partially imaged. There are multiple pathologic bilateral rib fractures. Several mild pathologic fractures within the lower thoracic and lumbar spine are probably chronic. No definite acute fractures. IMPRESSION: 1. No urinary calculi or hydronephrosis. No acute process within the abdomen or pelvis on unenhanced exam. Mild bladder distention. 2. Interval development of a moderate right pleural effusion since prior PET/CT. This is likely malignant. Trace left pleural effusion. 3. Increase in size of several pulmonary nodules and right cardiophrenic angle nodes consistent with progression of metastatic disease. 4. Extensive mixed lytic and sclerotic skeletal metastatic disease which has likely progressed. Several mild lower thoracic and lumbar spine pathologic fractures and multiple pathologic bilateral rib fractures. These are probably old. ACT 112: Negative or not required by law. Electronically signed by: Abdoul Cuba M.D. 06/21/2021 8:40 AM Dictated:06/21/21826 Transcribed: 06/21/21826 Hospital Course (1) Abdominal pain: (2) Flank pain: Present on admission with L matilde pain/abdominal pain CT abd/pelvis showed no acute process within the abdomen or pelvis on unenhanced exam. Tolerated Low fiber diet clinically stable Moderate Pleural effusion Interval development of a moderate right pleural effusion since prior PET/CT. Denies any SOB Continue resume lasix Breast cancer with lung and bone mets status post surgery, radiation, ongoing hormonal and Xgeva therapy CT showed Increase in size of several pulmonary nodules and right cardiophrenic angle nodes consistent with progression of metastatic disease. Extensive mixed lytic and sclerotic skeletal metastatic disease which has likely progressed. Result discussed with pt. Follow up with Oncology outpatient HTN Continue monitor BP DVT px on Lovenox Disposition Plan to discharge home Total Time Total Time Spent Total Time Spent (In Minutes): 35 minutes Discharge Plan Discharge Items Patient Disposition: Home - Self-Care Reason For Visit: INTRACTABLE CANCER PAIN Discharge Diagnosis: (1) Abdominal pain: (2) Flank pain: Activity: Resume your previous activity Non-emergency contact: Primary Care Provider and Oncologist Call non-emergency contact if: you have any medication questions Follow-up/Referrals: Tawana Nunn MD [Primary Care Provider] - 06/25/21 11:20 am (Date & Time 06/25/2021 11:20 AM Provider Tawana Nunn MD Department General Internal Medicine [facility] ) Diet: Heart Healthy Addtl Attending Provider Instructions: Follow up with your primary care provider Dr. Nunn on 06/25/2021 @ 11:20 AM at the General Internal Medicine [facility] Follow up with Oncology outpatient Seek medical attention if you develop any shortness of breath or your symptoms reoccur Fall precaution Advance diet as tolerated Pending Studies at Discharge: No Stand-Alone Forms: My Invisible Puppy, Smoking Cessation Medications and DC Order Prescriptions: Continued anastrozole [Arimidex] 1 mg tablet 1 mg PO DAILY RF: 0 cholecalciferol (vitamin D3) 25 mcg (1,000 unit) capsule 25 mcg PO DAILY RF: 0 acetaminophen [Tylenol Extra Strength] 500 mg tablet 500 mg PO Q6H PRN (Reason: pain) RF: 0 docusate sodium [Colace] 100 mg capsule 100 mg PO BID RF: 0 rosuvastatin 40 mg tablet 40 mg PO HS RF: 0 sennosides [Senokot] 8.6 mg tablet 8.6 mg PO BID RF: 0 ascorbate calcium (vitamin C) 500 mg tablet 500 mg PO DAILY RF: 0 furosemide 40 mg tablet 40 mg PO DAILY RF: 0 felodipine 10 mg tablet extended release 24 hr 10 mg PO DAILY RF: 0 losartan 100 mg tablet 100 mg PO DAILY RF: 0 fluoxetine 20 mg capsule 20 mg PO DAILY RF: 0 aspirin 81 mg tablet,delayed release (DR/EC) 81 mg PO Q OTHER DAY RF: 0 vitamin E 400 unit Capsule 400 unit PO DAILY RF: 0 28-800 mg-mcg Tablet 1 tab PO DAILY RF: 0 Discharge Orders: Discharge Order (Routine); Ordered 06/22/21 Ordered By: Jeffrey Teran/Other Patient Handouts: A1C, Managing Type 2 Diabetes Admission Data Admit Date/Time: 06/21/21 04:30 Attending Provider: Jeffrey Velásquez Admit Provider: Dereje Mckeon Primary Care Provider: Tawana Nunn Other Providers: Dereje Mckeon Other Interventions: Discharge Summary Assessment (RN) Last Done: 06/22/21 15:32
== END 2021-06-22 16:10 | disposition home or self-care (01) | DRG 392 ==
LOC: ED 22:02 → 3W 06-21 04:30

== ENCOUNTER 2021-09-01 07:12 | Inpatient (IN) ==
[2021-09-01] MEDS ORDERED: ONDANSETRON INJ 2 MG/ML 2 ML VIAL IV STA (07:25)
[2021-09-01] MEDS ORDERED: SODIUM CHLORIDE 0.9% 500 ML IV SCH (07:30)
[2021-09-01 07:38] LABS: Hematocrit (blood only) 33.3 % (37-47); Hemoglobin 10.4 g/dL (12.0-16.0); Mean Corpuscular Hemoglobin 26.7 pg (25-34); Mean Corpuscular Hgb Conc 31.2 g/dL (32-36); Mean Corpuscular Volume 85.6 fL (80-100); Mean Platelet Volume 9.2 fL (7.4-10.4); Platelet Count 370 K/uL (130-400); RDW Coefficient of Variation 18.6 % (11.5-14.5); RDW Standard Deviation 58.5 fL (36.4-46.3); Red Blood Count 3.89 M/uL (4.2-5.4); White Blood Count 8.68 K/uL (4.8-10.8)
--- NOTE | 2021-09-01 07:38 | Emergency Department Note ---
History of Present Illness General Chief complaint: Illness Time Seen by Provider: 09/01/21 07:14 History of Present Illness This is an 86-year-old female with a history of metastatic breast cancer who presents with concern for fatigue, nausea, and diarrhea. Patient was mets to lungs and bones and does have a right pleural catheter that is drained every 3 days by a home nurse. Family bedside states they typically pull around 500 mL soft. They not noticed any change in that amount recently. Patient states she has not had any chest pain, palpitations, increased shortness of breath or cough, abdominal pain, fevers, chills, night sweats. She states this morning she woke up with nausea but did not vomit. Patient states she had 1 episode of nonbloody diarrhea. Patient does take Lasix daily and is on 3 L/min of oxygen at home chronically. She states her last chemotherapeutic treatment was 3 weeks ago. Patient does live at home alone. No other known sick contact. No change in medications. Pt seen during a time of high acuity and national emergency pandemic while wearing PPE. Home Medications Medication Instructions Recorded Confirmed Type felodipine 10 mg tablet,extended 10 mg PO DAILY 02/05/20 09/01/21 History release 24 hr fluoxetine 20 mg capsule 20 mg PO DAILY 02/05/20 09/01/21 History furosemide 40 mg tablet 40 mg PO DAILY 02/05/20 09/01/21 History losartan 100 mg tablet 100 mg PO DAILY 02/05/20 09/01/21 History anastrozole 1 mg tablet (Arimidex) 1 mg PO DAILY 03/18/20 09/01/21 History cholecalciferol (vitamin D3) 25 25 mcg PO DAILY 03/18/20 09/01/21 History mcg (1,000 unit) capsule acetaminophen 500 mg tablet 500 mg PO Q6H PRN tab 09/16/20 09/01/21 History (Tylenol Extra Strength) ascorbate calcium (vitamin C) 500 500 mg PO DAILY 09/16/20 09/01/21 History mg tablet docusate sodium 100 mg capsule 100 mg PO BID 09/16/20 09/01/21 History (Colace) rosuvastatin 40 mg tablet 40 mg PO HS 09/16/20 09/01/21 History sennosides 8.6 mg tablet (Senokot) 8.6 mg PO BID 09/16/20 09/01/21 History vit no.133-ferrous 1 tab PO DAILY 06/20/21 09/01/21 History fumarate 28 mg-folic acid 800 mcg tablet () vitamin E 400 unit capsule 400 unit PO DAILY 06/20/21 09/01/21 History mirtazapine 15 mg tablet 15 mg PO HS 09/01/21 09/01/21 History oxycodone 5 mg tablet 5 mg PO Q8H PRN 09/01/21 09/01/21 History Allergies Allergy/AdvReac Type Severity Reaction Status Date / Time Beta-Blockers Allergy Severe FACIAL/MOUTH Verified 06/20/21 22:41 (Beta-Adrenergic Bloc SWELLING Past Med/Surg History Medical History Bone metastases History of left breast cancer History of Mohs micrographic surgery for skin cancer Hx of basal cell carcinoma Hx of essential hypertension Hx of multiple pulmonary nodules Surgical History History of total bilateral knee replacement Hx of cholecystectomy Hx of total hysterectomy Family History Sister Heart disease Brother Heart disease Mother Cancer, Onset Age: 56 opened for surgery, found to be widespread metastasis Father Lung disease Son Hypertension Social History Smoking Status: Never smoker Second Hand Exposure: No; Hx Alcohol Use: No Hx Substance Use: No Preferred Language: Sinhala Communication Ability: Effective Visual Impairment: Limited Hearing Ability: Hard of Hearing Crop Insurance Claims Adjuster Required: No Beliefs That Will Affect Care: None marital status: Unknown Current Living Situation: Alone Current Living Situation Comment: [facility] 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 occupational status: 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 How many Children do You have: 1 Feels Safe at Home: Yes Safety Concerns: Feels Safe At This Time Childhood Exposure to Second-Hand Smoke: Yes caffeine: Yes (coffee 1 cup in am) during the past year weight has: decreased > 10 lbs Dental Care, Regularly: Yes Physical Activity Frequency: Does not Exercise Seatbelt Use: always Sunscreen Use: Yes Assistive Devices: Glasses, Hearing Aid - Bilateral, Oxygen - Continuous, Walker and Wheelchair Review of Systems A total of 10 systems reviewed and were otherwise negative All systems reviewed & are unremarkable except as noted in HPI & below Physical Exam Vital Signs Vital Signs - 24 hr 09/01/21 07:03 09/01/21 07:18 09/01/21 07:19 Temperature 36.7 C Temperature Source Oral Pulse Rate 128 H 150 H 117 H Pulse Rate from SpO2 Sensor 105 H 98 H Pulse Rhythm Regular Pulse Strength Normal Respiratory Rate 26 H 38 H 22 Respiratory Effort / Characteristics Non-Labored Spontaneous Blood Pressure 109/66 Blood Pressure Mean 80 Pulse Oximetry 92 88 L 91 Oxygen Delivery Method Nasal Cannula Oxygen Flow Rate 6 Sepsis Recent Fever Within 48 Hours No Sepsis New/Unexplained Change in Mental Status No Sepsis Action Taken by Nursing No Action Required 09/01/21 07:30 09/01/21 07:31 09/01/21 08:00 Temperature Temperature Source Pulse Rate 132 H 129 H 127 H Pulse Rate from SpO2 Sensor 124 H 116 H Pulse Rhythm Pulse Strength Respiratory Rate 27 H 32 H 32 H Respiratory Effort / Characteristics Blood Pressure 109/66 101/71 Blood Pressure Mean 80 81 Pulse Oximetry 91 91 Oxygen Delivery Method Nasal Cannula Oxygen Flow Rate 6 Sepsis Recent Fever Within 48 Hours Sepsis New/Unexplained Change in Mental Status Sepsis Action Taken by Nursing 09/01/21 08:30 09/01/21 08:31 09/01/21 09:00 Temperature Temperature Source Pulse Rate 132 H 128 H 127 H Pulse Rate from SpO2 Sensor 126 H 161 H 131 H Pulse Rhythm Pulse Strength Respiratory Rate 22 35 H 28 H Respiratory Effort / Characteristics Blood Pressure Blood Pressure Mean 93 Pulse Oximetry 90 92 93 Oxygen Delivery Method Oxygen Flow Rate Sepsis Recent Fever Within 48 Hours Sepsis New/Unexplained Change in Mental Status Sepsis Action Taken by Nursing 09/01/21 09:01 09/01/21 09:30 09/01/21 09:31 Temperature Temperature Source Pulse Rate 134 H 120 H 119 H Pulse Rate from SpO2 Sensor 135 H 105 H 115 H Pulse Rhythm Pulse Strength Respiratory Rate 27 H 25 H 26 H Respiratory Effort / Characteristics Blood Pressure 129/60 125/53 L Blood Pressure Mean 83 77 Pulse Oximetry 92 93 93 Oxygen Delivery Method Oxygen Flow Rate Sepsis Recent Fever Within 48 Hours Sepsis New/Unexplained Change in Mental Status Sepsis Action Taken by Nursing 09/01/21 10:00 09/01/21 10:30 09/01/21 10:31 Temperature Temperature Source Pulse Rate 118 H 137 H 118 H Pulse Rate from SpO2 Sensor 128 H 137 H 136 H Pulse Rhythm Pulse Strength Respiratory Rate 35 H 26 H 24 Respiratory Effort / Characteristics Blood Pressure 73/48 L Blood Pressure Mean 56 Pulse Oximetry 90 95 96 Oxygen Delivery Method Oxygen Flow Rate Sepsis Recent Fever Within 48 Hours Sepsis New/Unexplained Change in Mental Status Sepsis Action Taken by Nursing 09/01/21 10:40 09/01/21 10:48 Temperature Temperature Source Pulse Rate 130 H 116 H Pulse Rate from SpO2 Sensor 109 H 126 H Pulse Rhythm Pulse Strength Respiratory Rate 24 23 Respiratory Effort / Characteristics Blood Pressure 96/52 L 80/55 L Blood Pressure Mean 66 63 Pulse Oximetry 94 94 Oxygen Delivery Method Oxygen Flow Rate Sepsis Recent Fever Within 48 Hours Sepsis New/Unexplained Change in Mental Status Sepsis Action Taken by Nursing GENERAL: alert, well appearing, well nourished, no distress, non-toxic EYE EXAM: normal conjunctiva, PERRL and EOM's grossly intact OROPHARYNX: no exudate, no erythema, lips, buccal mucosa, and tongue normal and mucous membranes are moist NECK: supple, no nuchal rigidity, no adenopathy, non-tender LUNGS: Clear to auscultation. Normal chest wall mechanics, no w/r, bibasilar rales, drainage catheter site well appearing on right posterior ribs, no increased work of breathing but mild tachypnea noted HEART: no murmurs, S1 normal and S2 normal ABDOMEN: abdomen soft, non-tender, normo-active bowel sounds, no masses, no rebound or guarding. BACK: Back is symmetrical on inspection and there is no deformity, no midline tenderness, no CVA tenderness. SKIN: no rashes and no bruising UPPER EXTREMITIES: upper extremities are grossly normal. FROM, nml pulses b/l. LOWER EXTREMITIES: trace b/l pitting edema. FROM, nml pulses b/l. NEURO EXAM: Normal sensorium, cranial nerves II-XII grossly intact, normal speech, no gross weakness of arms, no gross weakness of legs. Gross sensation intact. Course Course 0812: ICU nurse able to come help drain 350 ml from right chest catheter. 0840: DNR/DNI per conversation with resident. 1002: Patient with persistent A. fib and declining blood pressure. Cardizem will be decreased and small fluid bolus given. 1112: Patient has since converted to normal sinus rhythm and blood pressure improved. Cardizem drip was stopped. Administered Medications Diltiazem HCl 125 mg/ Dextrose 125 mls @ 0 mls/hr IV .Q0M [facility]; Protocol Stop: 10/01/21 08:44 Last Titration: 09/01/21 11:03 Dose: 0 mg/hr, 0 mls/hr Documented by: [id number] Cosigned by: [id number] Titration: 09/01/21 10:45 Dose: 2.5 mg/hr, 2.5 mls/hr Documented by: [id number] Cosigned by: [id number] Titration: 09/01/21 10:21 Dose: 5 mg/hr, 5 mls/hr Documented by: [id number] Cosigned by: [id number] Admin: 09/01/21 09:19 Dose: 5 mg/hr, 5 mls/hr Documented by: [id number] Cosigned by: [id number] Discontinued Medications Sodium Chloride (Nss) 500 mls @ 999 mls/hr IV .Q31M [facility] Stop: 09/01/21 08:00 Last Infusion: 09/01/21 08:02 Dose: 0 mls/hr Documented by: [id number] Admin: 09/01/21 07:31 Dose: 999 mls/hr Documented by: [id number] Cefepime HCl (Maxipime) 2,000 mg in 20 mls @ 5 mls/min IV NOW [facility]; Protocol Stop: 09/01/21 08:34 Last Admin: 09/01/21 09:19 Dose: 5 mls/min Documented by: [id number] Heparin Sodium/Dextrose (Heparin Sodium/Dextrose) 25,000 units in 500 mls @ 22 mls/hr IV .[id number] [facility]; Protocol Stop: 10/01/21 10:29 Last Admin: 09/01/21 14:22 Dose: 1,100 units/hr, 22 mls/hr Documented by: [id number] Cosigned by: [id number] Sodium Chloride (Nss 1000ml) 1,000 mls @ 999 mls/hr IV .Q1H1M ONE Stop: 09/01/21 14:05 Last Infusion: 09/01/21 15:22 Dose: 0 mls/hr Documented by: [id number] Admin: 09/01/21 13:48 Dose: 999 mls/hr Documented by: [id number] Miscellaneous (Stat Iv Infusion Titration Per Protocol) 1 ea N/A NOW STA Stop: 09/01/21 08:42 Last Admin: 09/01/21 09:27 Dose: 1 ea Documented by: [id number] Ondansetron HCl (Ondansetron Inj 2 Mg/Ml 2 Ml Vial) 4 mg IV NOW STA Stop: 09/01/21 07:26 Last Admin: 09/01/21 07:31 Dose: 4 mg Documented by: [id number] Critical Care Time Critical Care Time: Yes Total Critical Care Time: 46 Critical care of 46 min performed to assess and manage high likelihood of life- threatening dysrhythmia and hypotension, involving labs and imaging performed with assessment to evaluate dysrhythmia and hypotension diagnosis with frequent reassessment. This time includes bedside time, treatment discussions with patient/family/consultants, documentation time and excludes procedure time. Medical Decision Making Differential Diagnosis Differential Diagnosis includes but is not limited to dehydration, stroke, anemia, hypoglycemia, hyponatremia, hypernatremia, urinary tract infection, pneumonia, bronchitis, sepsis, gastroenteritis, additional abdominal pathology, metabolic abnormalities and infections. Medical Records Attestation: I reviewed the patient's medical records. Home Medications Current Medication List: was personally reviewed by me Laboratory Data Attestation: I reviewed the patient's lab results. Result diagrams: 09/01/21 07:23 09/01/21 14:39 Lab Results 09/01/21 09/01/21 09/01/21 Range/Units 07:23 07:23 07:23 WBC 8.68 (4.8-10.8) K/uL RBC 3.89 L (4.2-5.4) M/uL Hgb 10.4 L (12.0-16.0) g/dL Hct 33.3 L (37-47) % MCV 85.6 (80-100) fL MCH 26.7 (25-34) pg MCHC 31.2 L (32-36) g/dL RDW Std Deviation 58.5 H (36.4-46.3) fL RDW Coeff of Ravin 18.6 H (11.5-14.5) % Plt Count 370 (130-400) K/uL MPV 9.2 (7.4-10.4) fL Immature Gran % (Auto) 0.3 % Neut % (Auto) 78.1 % Lymph % (Auto) 11.8 % Story % (Auto) 9.0 % Eos % (Auto) 0.8 % Baso % (Auto) 0.0 % Neut # (Auto) 6.78 H (1.4-6.5) K/uL Lymph # (Auto) 1.02 L (1.2-3.4) K/uL Story # (Auto) 0.78 H (0.11-0.59) K/uL Eos # (Auto) 0.07 (0-0.5) K/uL Baso # (Auto) 0.00 (0-0.2) K/uL Immature Gran # (Auto) 0.03 H (0.00-0.02) K/uL RBC Morphology Unremarkable VBG pH (7.36-7.41) VBG pCO2 (38-50) mmHg VBG pO2 mmHg VBG HCO3 mmol/L VBG O2 Saturation % VBG Base Excess mEq/L Sodium 128 L (136-145) mmol/L Potassium 4.5 (3.5-5.1) mmol/L Chloride 83 L (98-107) mmol/L Carbon Dioxide 25 (21-32) mmol/L Anion Gap 20 H (3-11) BUN 77 H (6-23) mg/dl Creatinine 5.14 H* (0.6-1.2) mg/dl Est Cr Clr Drug Dosing 7.7 ml/min Est GFR ( Amer) 8.2 ml/min Est GFR (Non-Af Amer) 7.1 ml/min BUN/Creatinine Ratio 15.0 (10-20) Glucose 151 H (70-99(Fasting)) mg/dl Calcium 9.1 (8.5-10.1) mg/dl Phosphorus (2.5-4.9) mg/dl Magnesium 2.7 H (1.7-2.4) mg/dl Total Bilirubin 0.5 (0.2-1.0) mg/dl AST 29 (13-39) U/L ALT 22 (7-52) U/L Alkaline Phosphatase 117 H (34-104) U/L Troponin I High Sens 30.6 H (0-14) pg/ml B-Natriuretic Peptide (0-100) pg/ml Total Protein 7.5 (6.0-8.3) gm/dl Albumin 3.1 L (3.4-5.0) gm/dl Globulin 4.4 H (2.5-4.0) gm/dl Albumin/Globulin Ratio 0.7 L (0.9-2) Procalcitonin 1.58 H (0-0.5) ng/ml Urine Color Urine Appearance (Clear) Urine pH (4.5-7.5) Ur Specific Ferguson (1.000-1.030) Urine Protein (Negative) Urine Glucose (UA) (Negative) Urine Ketones (Negative) Urine Blood (Negative) Urine Nitrite (Negative) Urine Bilirubin (Negative) Urine Urobilinogen (Negative) Ur Leukocyte Esterase (Negative) Urine WBC (Auto) (0-5) /hpf Urine RBC (Auto) (0-4) /hpf U Hyaline Cast (Auto) (0-5) /lpf U Epithel Cells (Auto) (0-5) /lpf Urine Bacteria (Auto) (Negative) Ur Renal Epithelial Cell (0-5) /lpf Granular Casts (0) /lpf Other Casts (0) /lpf Urine Yeast Ur Random Creatinine mg/dl Ur Random Sodium mmol/L Nasal Screen MRSA (PCR) (Negative) SARS-CoV-2 (PCR) (Negative) Influenza Type A (PCR) (Neg) Influenza Type B (PCR) (Neg) RSV (RT-PCR) (Neg) 09/01/21 09/01/21 09/01/21 Range/Units 07:50 09:02 09:02 WBC (4.8-10.8) K/uL RBC (4.2-5.4) M/uL Hgb (12.0-16.0) g/dL Hct (37-47) % MCV (80-100) fL MCH (25-34) pg MCHC (32-36) g/dL RDW Std Deviation (36.4-46.3) fL RDW Coeff of Ravin (11.5-14.5) % Plt Count (130-400) K/uL MPV (7.4-10.4) fL Immature Gran % (Auto) % Neut % (Auto) % Lymph % (Auto) % Story % (Auto) % Eos % (Auto) % Baso % (Auto) % Neut # (Auto) (1.4-6.5) K/uL Lymph # (Auto) (1.2-3.4) K/uL Story # (Auto) (0.11-0.59) K/uL Eos # (Auto) (0-0.5) K/uL Baso # (Auto) (0-0.2) K/uL Immature Gran # (Auto) (0.00-0.02) K/uL RBC Morphology VBG pH 7.36 (7.36-7.41) VBG pCO2 48 (38-50) mmHg VBG pO2 34 mmHg VBG HCO3 27 mmol/L VBG O2 Saturation < 60.0 % VBG Base Excess 1.0 mEq/L Sodium (136-145) mmol/L Potassium (3.5-5.1) mmol/L Chloride (98-107) mmol/L Carbon Dioxide (21-32) mmol/L Anion Gap (3-11) BUN (6-23) mg/dl Creatinine (0.6-1.2) mg/dl Est Cr Clr Drug Dosing ml/min Est GFR ( Amer) ml/min Est GFR (Non-Af Amer) ml/min BUN/Creatinine Ratio (10-20) Glucose (70-99(Fasting)) mg/dl Calcium (8.5-10.1) mg/dl Phosphorus (2.5-4.9) mg/dl Magnesium (1.7-2.4) mg/dl Total Bilirubin (0.2-1.0) mg/dl AST (13-39) U/L ALT (7-52) U/L Alkaline Phosphatase (34-104) U/L Troponin I High Sens 33.1 H (0-14) pg/ml B-Natriuretic Peptide 56 (0-100) pg/ml Total Protein (6.0-8.3) gm/dl Albumin (3.4-5.0) gm/dl Globulin (2.5-4.0) gm/dl Albumin/Globulin Ratio (0.9-2) Procalcitonin (0-0.5) ng/ml Urine Color Urine Appearance (Clear) Urine pH (4.5-7.5) Ur Specific Ferguson (1.000-1.030) Urine Protein (Negative) Urine Glucose (UA) (Negative) Urine Ketones (Negative) Urine Blood (Negative) Urine Nitrite (Negative) Urine Bilirubin (Negative) Urine Urobilinogen (Negative) Ur Leukocyte Esterase (Negative) Urine WBC (Auto) (0-5) /hpf Urine RBC (Auto) (0-4) /hpf U Hyaline Cast (Auto) (0-5) /lpf U Epithel Cells (Auto) (0-5) /lpf Urine Bacteria (Auto) (Negative) Ur Renal Epithelial Cell (0-5) /lpf Granular Casts (0) /lpf Other Casts (0) /lpf Urine Yeast Ur Random Creatinine mg/dl Ur Random Sodium mmol/L Nasal Screen MRSA (PCR) (Negative) SARS-CoV-2 (PCR) (Negative) Influenza Type A (PCR) (Neg) Influenza Type B (PCR) (Neg) RSV (RT-PCR) (Neg) 09/01/21 09/01/21 09/01/21 Range/Units 09:02 09:25 09:28 WBC (4.8-10.8) K/uL RBC (4.2-5.4) M/uL Hgb (12.0-16.0) g/dL Hct (37-47) % MCV (80-100) fL MCH (25-34) pg MCHC (32-36) g/dL RDW Std Deviation (36.4-46.3) fL RDW Coeff of Ravin (11.5-14.5) % Plt Count (130-400) K/uL MPV (7.4-10.4) fL Immature Gran % (Auto) % Neut % (Auto) % Lymph % (Auto) % Story % (Auto) % Eos % (Auto) % Baso % (Auto) % Neut # (Auto) (1.4-6.5) K/uL Lymph # (Auto) (1.2-3.4) K/uL Story # (Auto) (0.11-0.59) K/uL Eos # (Auto) (0-0.5) K/uL Baso # (Auto) (0-0.2) K/uL Immature Gran # (Auto) (0.00-0.02) K/uL RBC Morphology VBG pH (7.36-7.41) VBG pCO2 (38-50) mmHg VBG pO2 mmHg VBG HCO3 mmol/L VBG O2 Saturation % VBG Base Excess mEq/L Sodium (136-145) mmol/L Potassium (3.5-5.1) mmol/L Chloride (98-107) mmol/L Carbon Dioxide (21-32) mmol/L Anion Gap (3-11) BUN (6-23) mg/dl Creatinine (0.6-1.2) mg/dl Est Cr Clr Drug Dosing ml/min Est GFR ( Amer) ml/min Est GFR (Non-Af Amer) ml/min BUN/Creatinine Ratio (10-20) Glucose (70-99(Fasting)) mg/dl Calcium (8.5-10.1) mg/dl Phosphorus 7.5 H (2.5-4.9) mg/dl Magnesium (1.7-2.4) mg/dl Total Bilirubin (0.2-1.0) mg/dl AST (13-39) U/L ALT (7-52) U/L Alkaline Phosphatase (34-104) U/L Troponin I High Sens (0-14) pg/ml B-Natriuretic Peptide (0-100) pg/ml Total Protein (6.0-8.3) gm/dl Albumin (3.4-5.0) gm/dl Globulin (2.5-4.0) gm/dl Albumin/Globulin Ratio (0.9-2) Procalcitonin (0-0.5) ng/ml Urine Color Urine Appearance (Clear) Urine pH (4.5-7.5) Ur Specific Ferguson (1.000-1.030) Urine Protein (Negative) Urine Glucose (UA) (Negative) Urine Ketones (Negative) Urine Blood (Negative) Urine Nitrite (Negative) Urine Bilirubin (Negative) Urine Urobilinogen (Negative) Ur Leukocyte Esterase (Negative) Urine WBC (Auto) (0-5) /hpf Urine RBC (Auto) (0-4) /hpf U Hyaline Cast (Auto) (0-5) /lpf U Epithel Cells (Auto) (0-5) /lpf Urine Bacteria (Auto) (Negative) Ur Renal Epithelial Cell (0-5) /lpf Granular Casts (0) /lpf Other Casts (0) /lpf Urine Yeast Ur Random Creatinine mg/dl Ur Random Sodium mmol/L Nasal Screen MRSA (PCR) Negative (Negative) SARS-CoV-2 (PCR) NEGATIVE (Negative) Influenza Type A (PCR) Negative (Neg) Influenza Type B (PCR) Negative (Neg) RSV (RT-PCR) Negative (Neg) 09/01/21 09/01/21 Range/Units 10:10 10:10 WBC (4.8-10.8) K/uL RBC (4.2-5.4) M/uL Hgb (12.0-16.0) g/dL Hct (37-47) % MCV (80-100) fL MCH (25-34) pg MCHC (32-36) g/dL RDW Std Deviation (36.4-46.3) fL RDW Coeff of Ravin (11.5-14.5) % Plt Count (130-400) K/uL MPV (7.4-10.4) fL Immature Gran % (Auto) % Neut % (Auto) % Lymph % (Auto) % Story % (Auto) % Eos % (Auto) % Baso % (Auto) % Neut # (Auto) (1.4-6.5) K/uL Lymph # (Auto) (1.2-3.4) K/uL Story # (Auto) (0.11-0.59) K/uL Eos # (Auto) (0-0.5) K/uL Baso # (Auto) (0-0.2) K/uL Immature Gran # (Auto) (0.00-0.02) K/uL RBC Morphology VBG pH (7.36-7.41) VBG pCO2 (38-50) mmHg VBG pO2 mmHg VBG HCO3 mmol/L VBG O2 Saturation % VBG Base Excess mEq/L Sodium (136-145) mmol/L Potassium (3.5-5.1) mmol/L Chloride (98-107) mmol/L Carbon Dioxide (21-32) mmol/L Anion Gap (3-11) BUN (6-23) mg/dl Creatinine (0.6-1.2) mg/dl Est Cr Clr Drug Dosing ml/min Est GFR ( Amer) ml/min Est GFR (Non-Af Amer) ml/min BUN/Creatinine Ratio (10-20) Glucose (70-99(Fasting)) mg/dl Calcium (8.5-10.1) mg/dl Phosphorus (2.5-4.9) mg/dl Magnesium (1.7-2.4) mg/dl Total Bilirubin (0.2-1.0) mg/dl AST (13-39) U/L ALT (7-52) U/L Alkaline Phosphatase (34-104) U/L Troponin I High Sens (0-14) pg/ml B-Natriuretic Peptide (0-100) pg/ml Total Protein (6.0-8.3) gm/dl Albumin (3.4-5.0) gm/dl Globulin (2.5-4.0) gm/dl Albumin/Globulin Ratio (0.9-2) Procalcitonin (0-0.5) ng/ml Urine Color Dark Yellow Urine Appearance Turbid A (Clear) Urine pH 5.0 (4.5-7.5) Ur Specific Ferguson 1.022 (1.000-1.030) Urine Protein 2+ H (Negative) Urine Glucose (UA) Negative (Negative) Urine Ketones Trace H (Negative) Urine Blood 1+ H (Negative) Urine Nitrite Negative (Negative) Urine Bilirubin Negative (Negative) Urine Urobilinogen Negative (Negative) Ur Leukocyte Esterase Negative (Negative) Urine WBC (Auto) 10-30 H (0-5) /hpf Urine RBC (Auto) 0-4 (0-4) /hpf U Hyaline Cast (Auto) 10-30 H (0-5) /lpf U Epithel Cells (Auto) >30 H (0-5) /lpf Urine Bacteria (Auto) Negative (Negative) Ur Renal Epithelial Cell 0-5 (0-5) /lpf Granular Casts 1-5 H (0) /lpf Other Casts Mixed Cell Cast A (0) /lpf Urine Yeast Not Reportable Ur Random Creatinine 141.8 mg/dl Ur Random Sodium 21 mmol/L Nasal Screen MRSA (PCR) (Negative) SARS-CoV-2 (PCR) (Negative) Influenza Type A (PCR) (Neg) Influenza Type B (PCR) (Neg) RSV (RT-PCR) (Neg) Imaging Data Radiologist's Impression: Chest X-Ray 09/01/21 07:28 XR chest 1V portable CLINICAL HISTORY: illness, sob TECHNIQUE: Single frontal radiograph of the chest was obtained. Comparison: Comparison is made to chest radiograph 01/27/2020 FINDINGS: No lines and tubes are seen. Cardiomegaly is noted. Left retrocardiac opacity is seen. Opacity in the right midlung is favored to represent atelectasis. There is mild pulmonary edema. Small bilateral pleural effusions are seen. IMPRESSION: 1. Left retrocardiac opacity is favored to represent atelectasis, pneumonia, and/or aspiration. 2. Small bilateral pleural effusions are seen. 3. Mild pulmonary edema. ACT 112: Negative or not required by law. Electronically signed by: Bertin Mccann M.D. 09/01/2021 7:56 AM Venous Doppler Study 09/01/21 09:07 US venous doppler LE CLINICAL HISTORY: leg swelling, acute hypoxia TECHNIQUE: Bilateral lower extremity real-time compression venous ultrasound with Color Doppler imaging. Utilizing real-time ultrasonic imaging multiple real time high-resolution ultrasonic images with compression and noncompression ma neuvers of the deep venous system in addition to color doppler imaging were performed from the common femoral vein through the proximal calf veins. COMPARISON: None available at the time of this dictation. FINDINGS: Currently there is normal compressibility of the deep venous system from the common femoral vein through the proximal calf veins. No superficial venous thrombosis is identified. Impression: No evidence of deep venous thrombus. ACT 112: Negative or not required by law. Electronically signed by: Bertin Mccann M.D. 09/01/2021 12:07 PM ECG Data Attestation: I personally reviewed and interpreted this ECG as follows: Indication: + weakness Rate (beats per minute): 129 Rhythm: + atrial fibrillation ECG Intervals/blocks: + Normal QRS and + Normal QT ECG [place]: + Normal ECG ST segments: + Nonspecific ST abnormalities Comparison ECG Date: from (May 2021) Change: the following changes noted (a.fib with RVR is new) MDM Narrative An order was placed for continuous cardiac monitoring. The monitor shows a rate of _134_ with _A. fib_ rhythm. This is an 86-year-old female with known metastatic cancer who presents to concern for fatigue, nausea, and diarrhea. Patient found to be in rapid A. fib which is a new diagnosis for her. Patient is not anticoagulated. Patient does have indwelling pleural catheter on the right which is drained every 3 days, unf ortunately on chest x-ray she was now also noted to have a left-sided pleural effusion additionally. Given the concern for diarrhea and decreased oral intake, initially a 500 fluid bolus was ordered as we were awaiting labs and imaging. No symptoms otherwise suggest overt CHF. Upon reviewing chest x-ray no additional fluids were added. Patient started on Cardizem drip without the bolus due to low normal blood pressures initially. At 1 point while trying to achieve better rate control, patient's blood pressure began to drop and the Cardizem was decreased. Eventually patient's rate converted to normal sinus rhythm, blood pressure improved, Cardizem drip stopped. Anticoagulation deferred to hospitalist team given patient's risk. Patient also found to have new renal failure. Initially consideration for possible PE in the setting of malignancy contributing to A. fib was considered however CT angiography could not be performed due to new ANTONIO. Patient was made aware of all results as was family at bedside. We discussed treatment and plan including CODE STATUS. Lower extremity Doppler orders in the interim. Patient was found to have elevated procalcitonin, blood cultures were added and patient given empiric cefepime as a precaution. Impression & Plan Atrial fibrillation with RVR, Metastatic breast cancer, ANTONIO (acute kidney injury), Hyponatremia, Hyperglycemia Discharge Plan Visit Data Chief Complaint: Illness ED Provider: Noris Coppola ED Midlevel Provider: Yfn Block Discharge Problem: Atrial fibrillation with RVR, Metastatic breast cancer, ANTONIO (acute kidney injury), Hyponatremia, Hyperglycemia Patient Disposition: Admitted As Inpatient Discharge Instructions Interventions: ED Discharge Assessment Last Done: 09/01/21 11:06
[2021-09-01 07:58] LABS: HCO3 VBG 27 mmol/L; Oxygen Saturation VBG < 60.0 %; PCO2 VBG 48 mmHg (38-50); PO2 VBG 34 mmHg; pH VBG 7.36 (7.36-7.41)
--- NOTE | 2021-09-01 07:58 | XRay Report ---
XR chest 1V portable CLINICAL HISTORY: illness, sob TECHNIQUE: Single frontal radiograph of the chest was obtained. Comparison: Comparison is made to chest radiograph 01/27/2020 FINDINGS: No lines and tubes are seen. Cardiomegaly is noted. Left retrocardiac opacity is seen. Opacity in the right midlung is favored to represent atelectasis. There is mild pulmonary edema. Small bilateral pl eural effusions are seen. IMPRESSION: 1. Left retrocardiac opacity is favored to represent atelectasis, pneumonia, and/or aspiration. 2. Small bilateral pleural effusions are seen. 3. Mild pulmonary edema. ACT 112: Negative or not required by law. Electronically signed by: Bertin Mccann M.D. 09/01/2021 7:56 AM
[2021-09-01 08:15] LABS: Troponin I High Sensitivity 30.6 pg/ml (0-14)
[2021-09-01 08:24] LABS: Albumin Globulin Ratio 0.7 (0.9-2); Albumin Level 3.1 gm/dl (3.4-5.0); Bilirubin,Total 0.5 mg/dl (0.2-1.0); Calcium 9.1 mg/dl (8.5-10.1); Creatinine Clr Calc Pharmacy 7.7 ml/min; Est GFR (African American) 8.2 ml/min; Est GFR (Non-African American) 7.1 ml/min; Globulin 4.4 gm/dl (2.5-4.0); Magnesium 2.7 mg/dl (1.7-2.4); Potassium 4.5 mmol/L (3.5-5.1); Total Protein 7.5 gm/dl (6.0-8.3)
[2021-09-01] MEDS ORDERED: CEFEPIME 2,000 MG/20 ML VIAL IV STA (08:31)
[2021-09-01] MEDS ORDERED: STAT IV Infusion **Titration per Protocol STA (08:41)
[2021-09-01] MEDS ORDERED: dilTIAZem HCL 125 MG in DEXTROSE 5% 100 ML IV SCH (08:45)
[2021-09-01 08:47] LABS: Eosinophils # (auto) 0.07 K/uL (0-0.5); Eosinophils % (auto) 0.8 %; Immature Granulocytes # (auto) 0.03 K/uL (0.00-0.02); Immature Granulocytes % (auto) 0.3 %; Lymphocytes # (auto) 1.02 K/uL (1.2-3.4); Lymphocytes % (auto) 11.8 %; Monocytes # (auto) 0.78 K/uL (0.11-0.59); Neutrophils # (auto) 6.78 K/uL (1.4-6.5); Neutrophils % (auto) 78.1 %; RBC Morphology Unremarkable
--- NOTE | 2021-09-01 09:10 | Communication Note ---
Date of Service: September 01, 2021 This patient was seen in concert with Dr. Coppola and we discussed and agreed upon the history, physical, assessment, and plan. See attending's note for det ails. Resident Activity Tracking Resident Involvement: Resident Care Provided Care Provided: Adult ED
--- NOTE | 2021-09-01 09:15 | History & Physical Report ---
Date of Service September 01, 2021 Assessment & Plan (1) Left lower lobe pneumonia: (2) Acute respiratory failure with hypoxia: Plan: - Admit to med surg with tele - Sputum culture, mucinex, duonebs inh , tessalon pearls - Wean O2 prn - wears 3 L at baseline and currently requiring 6 L - Influenza swab neg, COVID, RSV and flu Negative - WBC at time of admission = 8.68 - BCx x 2, follow - Afebrile - Procalcitonin 1.58 - CXR reviewed showing the left lower lobe opactity concerning for pna - Continue antibiotic therapy with cefepime IV (3) Metastatic breast cancer: Plan: - As above, currently on Arimidex therapy and gets Q3 mo injections with heme/onc. Currently follows with Dr. Prakash (4) Atrial fibrillation with RVR: Plan: - likely exacerbated by infection with pneumonia and dehydration - Cardiology consulted for new onset afib, - Started on Cardizem drip, will continue, also started on heparin drip with concern for possible PE - Initial trop negative, trend Q6h (5) ANTONIO (acute kidney injury): Plan: - Cr acutely bumped at > 5 with baseline of 0.6, BUN elevated at 77 compared to 14 one month ago -Holding p.o. home Lasix, losartan, nifedipine -Renally dose medications and avoid nephrotoxins -Bolus 1 L NSS now, received 500 mL in the ER so far -Avoid maintenance therapy IV due to Pleurx catheter placement and recurrent malignant pleural effusion -Nephrology consulted (6) Hyponatremia: Plan: - Likely to improve with fluid replacement, encourage po intake, repeat BMP this afteroon with trending troponins DVT ppx: - teds, scds, heparin gtt as above CODE: DNR/DNI Dispo: From home, likely to remain in the hospital x 1-2 days History of Present Illness Chief Complaint: Shortness of breath, fatigue Primary Care Provider: Tawana Nunn MD This is an 86 yo F with PMHx of DM II, HTN, diastolic CHF, metastatic breast ca ncer to bone and lung with recurrent right sided pleural effusion with indwelling pleurex catheter, HLD, hypercalcemia, who presents today with worsening shortness of breath x 1 week. She proceeded to be nauseous but did not vomit, she did have episode of diarrhea this morning as well. She has not been drinking very much fluids in the past 2 days, and admits to being slightly dehydrated. She peed once yesterday and does not remember urinating this morning. She denies any chest pain but admits to feeling short of breath, no palpitations, no flutter, no headache. This has been ongoing and seems better after she has her right-sided pleural effusion drained which occurs every 3 days. Her son at bedside, Sudeep, reports that typical amount of fluid off is 500-550 ml every 3 days. Today 350 cc were removed here in the hospital. She reports feeling much better at this point in time while wearing 6 L of O2, and lying in bed. She is able to sit herself up for us to listen to her lungs, and reports that she uses a Rollator walker at baseline. She has been less mobile in the last 1 to 2 weeks due to general fatigue. She is currently taking Arimidex p.o. daily for breast cancer and receives an injection every 3 months with her last dose being on August 17. Pt was found to be requiring 6 L O2 where at baseline she normally requires 3L. There are new left sided opacity on CXR. Her Cr. today is elevated at 5.14, one month ago on outpt records her cr was 0.6 and BUN 14. Pt is found to be in new onset afib with RVR which she was started on cardizem for in the ER. Will also treat with heparin gtt as no contraindications, and the patient with possibly underlying PE in the setting of increased SOB, hypoxia, and cancer history, although renal function does not allow CTA currently. Allergies Allergy/AdvReac Type Severity Reaction Status Date / Time Beta-Blockers Allergy Severe FACIAL/MOUTH Verified 06/20/21 22:41 (Beta-Adrenergic Bloc SWELLING Home Medications Medication Instructions Recorded Confirmed Type felodipine 10 mg tablet,extended 10 mg PO DAILY 02/05/20 09/01/21 History release 24 hr fluoxetine 20 mg capsule 20 mg PO DAILY 02/05/20 09/01/21 History furosemide 40 mg tablet 40 mg PO DAILY 02/05/20 09/01/21 History losartan 100 mg tablet 100 mg PO DAILY 02/05/20 09/01/21 History anastrozole 1 mg tablet (Arimidex) 1 mg PO DAILY 03/18/20 09/01/21 History cholecalciferol (vitamin D3) 25 25 mcg PO DAILY 03/18/20 09/01/21 History mcg (1,000 unit) capsule acetaminophen 500 mg tablet 500 mg PO Q6H PRN tab 09/16/20 09/01/21 History (Tylenol Extra Strength) ascorbate calcium (vitamin C) 500 500 mg PO DAILY 09/16/20 09/01/21 History mg tablet docusate sodium 100 mg capsule 100 mg PO BID 09/16/20 09/01/21 History (Colace) rosuvastatin 40 mg tablet 40 mg PO HS 09/16/20 09/01/21 History sennosides 8.6 mg tablet (Senokot) 8.6 mg PO BID 09/16/20 09/01/21 History vit no.133-ferrous 1 tab PO DAILY 06/20/21 09/01/21 History fumarate 28 mg-folic acid 800 mcg tablet () vitamin E 400 unit capsule 400 unit PO DAILY 06/20/21 09/01/21 History mirtazapine 15 mg tablet 15 mg PO HS 09/01/21 09/01/21 History oxycodone 5 mg tablet 5 mg PO Q8H PRN 09/01/21 09/01/21 History Past Med/Surg History Medical History Bone metastases History of left breast cancer History of Mohs micrographic surgery for skin cancer Hx of basal cell carcinoma Hx of essential hypertension Hx of multiple pulmonary nodules Surgical History History of total bilateral knee replacement Hx of cholecystectomy Hx of total hysterectomy Family History Sister Heart disease Brother Heart disease Mother Cancer, Onset Age: 56 opened for surgery, found to be widespread metastasis Father Lung disease Son Hypertension Social History Smoking Status: Never smoker Second Hand Exposure: No; Hx Alcohol Use: No Hx Substance Use: No Preferred Language: Argentine Communication Ability: Effective Visual Impairment: Limited Hearing Ability: Hard of Hearing Associate Research Scientist Required: No Beliefs That Will Affect Care: None marital status: Unknown Current Living Situation: Other Current Living Situation Comment: [facility] (Apartment complex). 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 How many Children do You have: 1 Feels Safe at Home: Yes Childhood Exposure to Second-Hand Smoke: Yes caffeine: Yes (coffee 1 cup in am) during the past year weight has: decreased > 10 lbs Dental Care, Regularly: Yes Physical Activity Frequency: Does not Exercise Seatbelt Use: always Sunscreen Use: Yes Assistive Devices: Oxygen - at Night and Walker Review of Systems Review of Systems: Constitutional: No fever, sweats or chills Eyes: No diplopia, no worsening or blurred vision ENT: normal hearing, no trouble swallowing Respiratory: No cough, sputum, + dyspnea at rest and on exertion Cardiovascular: No chest pain, tightness or palpitations Abdomen: As per HPI, no pain, vomiting, constipation , + nausea and diarrhea x 1day Musculoskeletal: No joint pain, calf pain, swelling - gets trace ankle swelling but currently not swollen Neurologic: + generalized weakness, no numbness/tingling, or balance problems Psychiatric: No anxiety or depression Skin: No rash or itch Physical Exam Physical Exam: General: awake, alert, no apparent distress Head: Normocephalic, atraumatic ENT: PERRL, EOMI, no pharyngeal exudate, mucous membranes moist Chest: + pleurex catheter on R posterior chest wall, no surrounding erythema, diminished breath sounds to auscultation at bases bilaterally, on 6 L via NC Cardiac: irregularly irregular with HR in 120s while at bedside, no murmur, no JVD, normal peripheral pulses, good capillary refill Abdominal: NABS x 4 quadrants, soft, nondistended, nontender to palpation, no rebound or guarding Extremities: Normal inspection, no peripheral edema or erythema, calfs nontender to palpation Psych: Normal mood and affect Neuro: AAO x 3, strength intact bilaterally and rated 5/5, no motor deficits, speech is clear, no peripheral sensory deficits Results & Data Results & Data ([facility]) Vital Signs (Past 12 Hours) Vital Signs Temp Pulse Resp BP Pulse Ox 09/01/21 08:30 132 H 22 90 09/01/21 08:00 127 H 32 H 101/71 09/01/21 07:31 129 H 32 H 109/66 91 09/01/21 07:30 132 H 27 H 91 09/01/21 07:19 117 H 22 91 09/01/21 07:18 150 H 38 H 88 L 09/01/21 07:03 36.7 C 128 H 26 H 109/66 92 Laboratory Results 09/01/21 09:02 Aerobic Blood Culture - Pending Blood Anaerobic Blood Culture - Pending 09/01/21 07:23 Aerobic Blood Culture - Pending Blood Anaerobic Blood Culture - Pending 09/01/21 09/01/21 09/01/21 09:28 09:02 09:02 WBC RBC Hgb Hct MCV MCH MCHC RDW Std Deviation RDW Coeff of Ravin Plt Count MPV Immature Gran % (Auto) Neut % (Auto) Lymph % (Auto) Candler % (Auto) Eos % (Auto) Baso % (Auto) Neut # (Auto) Lymph # (Auto) Candler # (Auto) Eos # (Auto) Baso # (Auto) Immature Gran # (Auto) RBC Morphology VBG pH VBG pCO2 VBG pO2 VBG HCO3 VBG O2 Saturation VBG Base Excess Sodium Potassium Chloride Carbon Dioxide Anion Gap BUN Creatinine Est Cr Clr Drug Dosing Est GFR ( Amer) Est GFR (Non-Af Amer) BUN/Creatinine Ratio Glucose Calcium Phosphorus 7.5 H Magnesium Total Bilirubin AST ALT Alkaline Phosphatase Troponin I High Sens 33.1 H B-Natriuretic Peptide Total Protein Albumin Globulin Albumin/Globulin Ratio Procalcitonin SARS-CoV-2 (PCR) NEGATIVE Influenza Type A (PCR) Negative Influenza Type B (PCR) Negative RSV (RT-PCR) Negative 09/01/21 09/01/21 09/01/21 09:02 07:50 07:23 WBC RBC Hgb Hct MCV MCH MCHC RDW Std Deviation RDW Coeff of Ravin Plt Count MPV Immature Gran % (Auto) Neut % (Auto) Lymph % (Auto) Candler % (Auto) Eos % (Auto) Baso % (Auto) Neut # (Auto) Lymph # (Auto) Candler # (Auto) Eos # (Auto) Baso # (Auto) Immature Gran # (Auto) RBC Morphology VBG pH 7.36 VBG pCO2 48 VBG pO2 34 VBG HCO3 27 VBG O2 Saturation < 60.0 VBG Base Excess 1.0 Sodium Potassium Chloride Carbon Dioxide Anion Gap BUN Creatinine Est Cr Clr Drug Dosing Est GFR ( Amer) Est GFR (Non-Af Amer) BUN/Creatinine Ratio Glucose Calcium Phosphorus Magnesium Total Bilirubin AST ALT Alkaline Phosphatase Troponin I High Sens B-Natriuretic Peptide 56 Total Protein Albumin Globulin Albumin/Globulin Ratio Procalcitonin 1.58 H SARS-CoV-2 (PCR) Influenza Type A (PCR) Influenza Type B (PCR) RSV (RT-PCR) 09/01/21 09/01/21 07:23 07:23 WBC 8.68 RBC 3.89 L Hgb 10.4 L Hct 33.3 L MCV 85.6 MCH 26.7 MCHC 31.2 L RDW Std Deviation 58.5 H RDW Coeff of Ravin 18.6 H Plt Count 370 MPV 9.2 Immature Gran % (Auto) 0.3 Neut % (Auto) 78.1 Lymph % (Auto) 11.8 Candler % (Auto) 9.0 Eos % (Auto) 0.8 Baso % (Auto) 0.0 Neut # (Auto) 6.78 H Lymph # (Auto) 1.02 L Candler # (Auto) 0.78 H Eos # (Auto) 0.07 Baso # (Auto) 0.00 Immature Gran # (Auto) 0.03 H RBC Morphology Unremarkable VBG pH VBG pCO2 VBG pO2 VBG HCO3 VBG O2 Saturation VBG Base Excess Sodium 128 L Potassium 4.5 Chloride 83 L Carbon Dioxide 25 Anion Gap 20 H BUN 77 H Creatinine 5.14 H* Est Cr Clr Drug Dosing 7.7 Est GFR ( Amer) 8.2 Est GFR (Non-Af Amer) 7.1 BUN/Creatinine Ratio 15.0 Glucose 151 H Calcium 9.1 Phosphorus Magnesium 2.7 H Total Bilirubin 0.5 AST 29 ALT 22 Alkaline Phosphatase 117 H Troponin I High Sens 30.6 H B-Natriuretic Peptide Total Protein 7.5 Albumin 3.1 L Globulin 4.4 H Albumin/Globulin Ratio 0.7 L Procalcitonin SARS-CoV-2 (PCR) Influenza Type A (PCR) Influenza Type B (PCR) RSV (RT-PCR) Diagnostic Findings Chest X-Ray 09/01/21 07:28 XR chest 1V portable CLINICAL HISTORY: illness, sob TECHNIQUE: Single frontal radiograph of the chest was obtained. Comparison: Comparison is made to chest radiograph 01/27/2020 FINDINGS: No lines and tubes are seen. Cardiomegaly is noted. Left retrocardiac opacity is seen. Opacity in the right midlung is favored to represent atelectasis. There is mild pulmonary edema. Small bilateral pleural effusions are seen. IMPRESSION: 1. Left retrocardiac opacity is favored to represent atelectasis, pneumonia, and/or aspiration. 2. Small bilateral pleural effusions are seen. 3. Mild pulmonary edema. ACT 112: Negative or not required by law. Electronically signed by: Bertin Mccann M.D. 09/01/2021 7:56 AM Code Status & VTE Plan Code Status DNR/DNI - discussed with the patient and her son at bedside Supervising Physician Co-Signing Physician Notes Pt is a 86 y/o F with hx of Metastatic L breast ca to bone and lung complicated with malignant pleural effusion s/p recent pleurX catheter placement and Hypoxia (on 3 L), DMII, HLD, HTN admitted for hypoxia with new onset Afib with RVR and severe ANTONIO. PE: Appeared fatigued, well developed Lungs: fair air movement on the R side but decreased BS on the L side, PleurX c atheter in place on the R side Cards: in Afib Abd: ND, NT, soft, normal BS MSK: no edema or erythema or warmth touch of the b/l LE Psych: AAOx3, normal affect A/P: Respiratory failure: -at baseline pt uses 3L of oxygen -now requiring 6 L with decrease in SpO2 with movement -likely 2/2 Pneumonia -COVID, flu: neg -will continue cefepime -due to hx of malignancy, PE is in the differential however due to severe ANTONIO can not obtain CTA chest ---- b/l pulm nodule and pleural effusion unsure abt the accuracy of V/Q scan -however pt is started on heparin drip for new onset afib -admit to PCU tele Severe ANTONIO: -likely 2/2 acute infection + dehydration (decreased PO intake) -will give another 1 L NS bolus ----- previous Echo showed normal EF ----- BNP wnl -repeat BMP in 6 hrs -HypoNa+ likely due to hypovolemia as well ----- trend BMp -Nephro consult -will do urinary catheter to monitor urine output New onset Afib: -on Cardizem drip -starting pt on heparin drip -trend trop -cardiology consult -will obtain echo Agree with A/p by Silvia Shah PA-C
[2021-09-01] MEDS ORDERED: Heparin IV Adult Wt-Based Standard *NO* Bolus Protocol IV SCH (10:00)
[2021-09-01 10:23] LABS: Influenza A virus by PCR Negative (Neg); Influenza B virus by PCR Negative (Neg); RSV by PCR Negative (Neg); SARS CoV2 RNA(COVID-19) InHosp NEGATIVE (Negative)
[2021-09-01] MEDS ORDERED: HEPARIN SODIUM/DEXTROSE 25,000 UNITS/500 ML BAG IV SCH (10:30)
[2021-09-01 10:41] LABS: Appearance Urine Turbid (Clear); Bacteria Urine Automated Negative (Negative); Bilirubin Urine Negative (Negative); Blood Urine 1+ (Negative); Color Urine Dark Yellow; Epithelial Cell Urine Auto >30 /lpf (0-5); Glucose Urine UA Negative (Negative); Ketones Urine Trace (Negative); Leukocyte Esterase Urine Negative (Negative); Nitrite Urine Negative (Negative); Protein Urine 2+ (Negative); Specific Gravity Urine 1.022 (1.000-1.030); Urobilinogen Urine Negative (Negative)
[2021-09-01 11:02] LABS: RBC Urine Automated 0-4 /hpf (0-4)
[2021-09-01 11:07] LABS: Renal Epithelial Cells Urine 0-5 /lpf (0-5)
[2021-09-01 11:18] LABS: Creatinine Urine Random 141.8 mg/dl
--- NOTE | 2021-09-01 12:09 | Ultrasound Report ---
US venous doppler LE BI CLINICAL HISTORY: leg swelling, acute hypoxia TECHNIQUE: Bilateral lower extremity real-time compression venous ultrasound with Color Doppler imagi ng. Utilizing real-time ultrasonic imaging multiple real time high-resolution ultrasonic images with compression and noncompression maneuvers of the deep venous system in addition to color doppler imagi ng were performed from the common femoral vein through the proximal calf veins. COMPARISON: None available at the time of this dictation. FINDINGS: Currently there is normal compressibility of the deep venous system from the common femoral vein thro ugh the proximal calf veins. No superficial venous thrombosis is identified. Impression: No evidence of deep venous thrombus. ACT 112: Negative or not required by law. Electronically signed by: Bertin Mccann M.D. 09/01/2021 12:07 PM
[2021-09-01] MEDS ORDERED: oxyCODONE HCL IR 5 MG TAB (IMMEDIATE RELEASE) PO PRN (13:05)
[2021-09-01] MEDS ORDERED: ONDANSETRON INJ 2 MG/ML 2 ML VIAL IV PRN (13:05)
[2021-09-01] MEDS ORDERED: SODIUM CHLORIDE 0.9% 1000ML 1,000 ML IV ONE (13:05)
[2021-09-01] MEDS ORDERED: ACETAMINOPHEN 325 MG TAB PO PRN (13:05)
[2021-09-01 13:47] LABS: Partial Thromboplastin Ratio 0.9; Prothrombin Time 11.1 Seconds (9.0-12.0)
[2021-09-01 14:19] LABS: BUN Creatinine Ratio 15.7 (10-20); Calcium 8.4 mg/dl (8.5-10.1); Creatinine Clr Calc Pharmacy 7.8 ml/min; Est GFR (African American) 8.4 ml/min; Est GFR (Non-African American) 7.3 ml/min; Potassium 4.7 mmol/L (3.5-5.1)
--- NOTE | 2021-09-01 15:27 | Nephrology Consultation ---
Date of Consultation September 01, 2021 Assessment & Plan (1) ANTONIO (acute kidney injury): Bert prerenal/ Ischemic ATN - Her oral intake has been poor and she has been on lasix and CARLOS ALBERTO/ hemodynamic instability 2/ Atrial fibrillation - Agree with fluid resuscitation,@ 2lit / day with normal saline, Would convert to Isolyte after that at 75 mls/ hr.Keep MAP > 65 - Input and output - Continue to hold Lasix and CARLOS ALBERTO at the moment. - Rate control. - 8 hourly BMP - Replace electrolyte , keep k > 4 , magnesium > 2. - She has a h/o metastatic, need to make sure that she is not Obstructed, Renal Ultrasound scan ordered. - She has mild hyponatremia which is likley 2/ Volume depletion--- expect impro vement with Normal saline. - If her renal function do not show improvement with fluid , d./c fluid and observe-- Bert MARY. I spoke to son, explaining the various scenario's, if a situation for dialysis arises, he would NOT want it and opt for conservative measures. (2) Atrial fibrillation with RVR: (3) Left lower lobe pneumonia: (4) Metastatic breast cancer: (5) Hx of multiple pulmonary nodules: (6) Bone metastases: History of Present Illness Reason for Consultation: Acute kidney injury Attending Physician: Marcel Velasco MD History of Present Illness 86 y/o F with hx of Metastatic L breast ca to bone and lung complicated with malignant pleural effusion s/p recent pleurX catheter placement and Hypoxia (on 3 L), DMII, HLD, HTN admitted for hypoxia with new onset Afib with RVR and severe ANTONIO. Denies any renal problems in the past,Last passed urine spontaneously yesterday, Small quantity" dark in colour". Acoording to the luis she has been eating eating " like a bird" with very little fluid intake over the last few day,She has been nauseaous since morning with " dry heaves" but no vomiting. She also has bought of diarrhea in the morning. On review she appears volume depleted, with reduced skin turgor, Shortness of breath at baseline, no fever, abdominal pain or dysuria.She has been on furos emide , and lisinopril which she has been taking regularly. Allergies Allergy/AdvReac Type Severity Reaction Status Date / Time Beta-Blockers Allergy Severe FACIAL/MOUTH Verified 06/20/21 22:41 (Beta-Adrenergic Bloc SWELLING Home Medications Medication Instructions Recorded Confirmed Type felodipine 10 mg tablet,extended 10 mg PO DAILY 02/05/20 09/01/21 History release 24 hr fluoxetine 20 mg capsule 20 mg PO DAILY 02/05/20 09/01/21 History furosemide 40 mg tablet 40 mg PO DAILY 02/05/20 09/01/21 History losartan 100 mg tablet 100 mg PO DAILY 02/05/20 09/01/21 History anastrozole 1 mg tablet (Arimidex) 1 mg PO DAILY 03/18/20 09/01/21 History cholecalciferol (vitamin D3) 25 25 mcg PO DAILY 03/18/20 09/01/21 History mcg (1,000 unit) capsule acetaminophen 500 mg tablet 500 mg PO Q6H PRN tab 09/16/20 09/01/21 History (Tylenol Extra Strength) ascorbate calcium (vitamin C) 500 500 mg PO DAILY 09/16/20 09/01/21 History mg tablet docusate sodium 100 mg capsule 100 mg PO BID 09/16/20 09/01/21 History (Colace) rosuvastatin 40 mg tablet 40 mg PO HS 09/16/20 09/01/21 History sennosides 8.6 mg tablet (Senokot) 8.6 mg PO BID 09/16/20 09/01/21 History vit no.133-ferrous 1 tab PO DAILY 06/20/21 09/01/21 History fumarate 28 mg-folic acid 800 mcg tablet () vitamin E 400 unit capsule 400 unit PO DAILY 06/20/21 09/01/21 History mirtazapine 15 mg tablet 15 mg PO HS 09/01/21 09/01/21 History oxycodone 5 mg tablet 5 mg PO Q8H PRN 09/01/21 09/01/21 History Patient History Medical History Bone metastases History of left breast cancer History of Mohs micrographic surgery for skin cancer Hx of basal cell carcinoma Hx of essential hypertension Hx of multiple pulmonary nodules Surgical History History of total bilateral knee replacement Hx of cholecystectomy Hx of total hysterectomy Family History Sister Heart disease Brother Heart disease Mother Cancer, Onset Age: 56 opened for surgery, found to be widespread metastasis Father Lung disease Son Hypertension Social History Smoking Status: Never smoker Second Hand Exposure: No; Hx Alcohol Use: No Hx Substance Use: No Preferred Language: German Communication Ability: Effective Visual Impairment: Limited Hearing Ability: Hard of Hearing Plant Care Worker Required: No Beliefs That Will Affect Care: None marital status: Unknown Current Living Situation: Alone Current Living Situation Comment: [employer] [place] 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 occupational 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 How many Children do You have: 1 Feels Safe at Home: Yes Safety Concerns: Feels Safe At This Time Childhood Exposure to Second-Hand Smoke: Yes caffeine: Yes (coffee 1 cup in am) during the past year weight has: decreased > 10 lbs Dental Care, Regularly: Yes Physical Activity Frequency: Does not Exercise Seatbelt Use: always Sunscreen Use: Yes Assistive Devices: Glasses, Hearing Aid - Bilateral, Oxygen - Continuous, Wa lker and Wheelchair Review of Systems Review of Systems: Constitutional: No fever, sweats or chills Respiratory: No cough, sputum, + dyspnea at rest and on exertion Cardiovascular: No chest pain, tightness or palpitations Abdomen: As per HPI, no pain, vomiting, constipation , + nausea and diarrhea x 1day Musculoskeletal: No joint pain, calf pain, swelling - gets trace ankle swelling but currently not swollen Neurologic: + generalized weakness, no numbness/tingling, or balance problems Psychiatric: No anxiety or depression Skin: No rash or itch Physical Exam Physical Exam: General: awake, alert, no apparent distress, appears volume depleted. Head: Normocephalic, atraumatic ENT: PERRL, EOMI, no pharyngeal exudate, mucous membranes dry Chest: + pleurex catheter on R posterior chest wall, no surrounding erythema, diminished breath sounds to auscultation at bases bilaterally, on 6 L via NC Cardiac: irregularly irregular , no JVD. Results & Data ([facility]) Vital Signs (Past 12 Hours) Vital Signs Temp Pulse Pulse Resp BP BP Pulse Ox 09/01/21 12:23 36.4 C L 79 22 113/67 91 09/01/21 10:48 116 H 23 80/55 L 94 09/01/21 10:40 130 H 24 96/52 L 94 09/01/21 10:31 118 H 24 73/48 L 96 09/01/21 10:30 137 H 26 H 95 09/01/21 10:00 118 H 35 H 90 09/01/21 09:31 119 H 26 H 125/53 L 93 09/01/21 09:30 120 H 25 H 93 09/01/21 09:01 134 H 27 H 129/60 92 09/01/21 09:00 127 H 28 H 93 09/01/21 08:31 128 H 35 H 92 09/01/21 08:30 132 H 22 90 09/01/21 08:00 127 H 32 H 101/71 09/01/21 07:31 129 H 32 H 109/66 91 09/01/21 07:30 132 H 27 H 91 09/01/21 07:19 117 H 22 91 09/01/21 07:18 150 H 38 H 88 L 09/01/21 07:03 36.7 C 128 H 26 H 109/66 92 Laboratory Results 09/01/21 07:23
[2021-09-01 15:29] LABS: Troponin I High Sensitivity 40.7 pg/ml (0-14)
[2021-09-01 15:37] LABS: BUN Creatinine Ratio 15.4 (10-20); Calcium 7.9 mg/dl (8.5-10.1); Creatinine Clr Calc Pharmacy 8.1 ml/min; Est GFR (African American) 8.8 ml/min; Est GFR (Non-African American) 7.6 ml/min; Potassium 4.6 mmol/L (3.5-5.1)
--- NOTE | 2021-09-01 17:46 | Cardiology Consultation ---
Date of Consultation September 01, 2021 Assessment & Plan (1) Atrial fibrillation with RVR: (2) ANTONIO (acute kidney injury): (3) History of left breast cancer: (4) Malignant pleural effusion: Patient presents with worsening shortness of breath of several weeks duration. Worsening oxygen demands wearing 3 L nasal cannula at home at baseline and up to 6 L recently. Baseline creatinine 0.6, 5.14 on presentation, and 4.86 on repeat. Patient had presented with atrial fibrillation, subsequently converted to sinus rhythm on a diltiazem infusion. Chest x-ray with opacification of two thirds of the left lung field, diminished lung sounds. Per my interpretation, I think the left lung appears worse than that which is described on the chest x-ray report. Patient is known to have a recurrent malignant right pleural effusion, this is controlled currently with an indwelling pleural catheter in the right chest looks good on chest x-ray, but I am concerned of new/worsening left pleural effusion compared to the chest x-ray performed status post left pleural catheter at [facility] 08/03/2021. Agree with cautious hydration given acute renal insufficiency. Nephrology input noted and appreciated. Case discussed with hospitalist team, recommend pulmonary consultation with regards to suspected left pleural effusion. Heparin infusion has been started for stroke prophylaxis while in atrial fibrillation, however at present, we will discontinue this in anticipation of possible need for thoracentesis or even perhaps indwelling left pleural catheter. Although patient does have risk factors with regards to her history of malignancy, stasis, with regards to venous thromboembolic disease, her lower extremity venous duplex is negative, I think the left chest findings likely explain her shortness of breath. Echocardiogram has been ordered and will be reviewed upon completion. History of Present Illness Attending Physician: Marcel Velasco MD History of Present Illness Maria Del Carmen Medel is an 86 year old female seen in cardiology consultation per the request of Silvia Shah PA-C for the evaluation of atrial fibrillation with rapid ventricular response. Patient seen in room 218, accompanied by her son,Rajinder. Patient has a history of breast carcinoma with metastatic disease to the lungs and bone. She has a history of recurrent malignant pleural effusion and had an indwelling pleural catheter placed at [facility] on 08/03/2021 at which time trace residual bilateral pleural effusions noted. She has been draining the pleural catheter once every 3 days or so at home yielding around 500 mL per session per her son. Today thresh 50 mL removed from the right pleural catheter while in the emergency room. Patient notes worsening shortness of breath x1 week, decreased urinary output. At the time of presentation earlier today she was in atrial fibrillation with rates as high as 130 bpm. IV diltiazem was initiated, and she converted to sinus rhythm 09/01/2021 at 10:52 AM and has been in sinus rhythm in the 70s in the meantime. Allergies Allergy/AdvReac Type Severity Reaction Status Date / Time Beta-Blockers Allergy Severe FACIAL/MOUTH Verified 06/20/21 22:41 (Beta-Adrenergic Bloc SWELLING Home Medications Medication Instructions Recorded Confirmed Type felodipine 10 mg tablet,extended 10 mg PO DAILY 02/05/20 09/01/21 History release 24 hr fluoxetine 20 mg capsule 20 mg PO DAILY 02/05/20 09/01/21 History furosemide 40 mg tablet 40 mg PO DAILY 02/05/20 09/01/21 History losartan 100 mg tablet 100 mg PO DAILY 02/05/20 09/01/21 History anastrozole 1 mg tablet (Arimidex) 1 mg PO DAILY 03/18/20 09/01/21 History cholecalciferol (vitamin D3) 25 25 mcg PO DAILY 03/18/20 09/01/21 History mcg (1,000 unit) capsule acetaminophen 500 mg tablet 500 mg PO Q6H PRN tab 09/16/20 09/01/21 History (Tylenol Extra Strength) ascorbate calcium (vitamin C) 500 500 mg PO DAILY 09/16/20 09/01/21 History mg tablet docusate sodium 100 mg capsule 100 mg PO BID 09/16/20 09/01/21 History (Colace) rosuvastatin 40 mg tablet 40 mg PO HS 09/16/20 09/01/21 History sennosides 8.6 mg tablet (Senokot) 8.6 mg PO BID 09/16/20 09/01/21 History vit no.133-ferrous 1 tab PO DAILY 06/20/21 09/01/21 History fumarate 28 mg-folic acid 800 mcg tablet () vitamin E 400 unit capsule 400 unit PO DAILY 06/20/21 09/01/21 History mirtazapine 15 mg tablet 15 mg PO HS 09/01/21 09/01/21 History oxycodone 5 mg tablet 5 mg PO Q8H PRN 09/01/21 09/01/21 History Patient History Medical History Bone metastases History of left breast cancer History of Mohs micrographic surgery for skin cancer Hx of basal cell carcinoma Hx of essential hypertension Hx of multiple pulmonary nodules Surgical History History of total bilateral knee replacement Hx of cholecystectomy Hx of total hysterectomy Family History Sister Heart disease Brother Heart disease Mother Cancer, Onset Age: 56 opened for surgery, found to be widespread metastasis Father Lung disease Son Hypertension Social History Smoking Status: Never smoker Second Hand Exposure: No; Hx Alcohol Use: No Hx Substance Use: No Preferred Language: Kazakh Communication Ability: Effective Visual Impairment: Limited Hearing Ability: Hard of Hearing Parquetry Layer Required: No Beliefs That Will Affect Care: None marital status: Unknown Current Living Situation: Alone Current Living Situation Comment: [facility] [employer] [facility] current occupational status: 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 How many Children do You have: 1 Feels Safe at Home: Yes Safety Concerns: Feels Safe At This Time Childhood Exposure to Second-Hand Smoke: Yes caffeine: Yes (coffee 1 cup in am) during the past year weight has: decreased > 10 lbs Dental Care, Regularly: Yes Physical Activity Frequency: Does not Exercise Seatbelt Use: always Sunscreen Use: Yes Assistive Devices: Glasses, Hearing Aid - Bilateral, Oxygen - Continuous, Walker and Wheelchair Review of Systems Review of Systems: All systems reviewed & are unremarkable except as noted in HPI & below Physical Exam Constitutional: Chronically ill in appearance, dyspnea noted with conversation Respiratory: Auscultation: + diminished lung sounds (Decreased breath sounds throughout two thirds of the left lung field, no br); no rales and no wheezes Cardiovascular: Rate/Rhythm: regular rate Heart Sounds: no murmur Extremities: + edema (Trace edema) Gastrointestinal (Abdomen): normal bowel sounds, soft, nontender, no hepatosplenomegaly Neurologic: PERRL, EOMI, accommodation nl, no face palsy, no dysarthria Genitourinary: AmberFoley catheter in place draining concentrated, dark urine Results & Data ([facility]) Vital Signs (Past 12 Hours) Vital Signs Temp Pulse Pulse Resp BP BP Pulse Ox 09/01/21 16:14 36.7 C 82 18 128/73 92 09/01/21 12:23 36.4 C L 79 22 113/67 91 09/01/21 10:48 116 H 23 80/55 L 94 09/01/21 10:40 130 H 24 96/52 L 94 09/01/21 10:31 118 H 24 73/48 L 96 09/01/21 10:30 137 H 26 H 95 09/01/21 10:00 118 H 35 H 90 09/01/21 09:31 119 H 26 H 125/53 L 93 09/01/21 09:30 120 H 25 H 93 09/01/21 09:01 134 H 27 H 129/60 92 09/01/21 09:00 127 H 28 H 93 09/01/21 08:31 128 H 35 H 92 09/01/21 08:30 132 H 22 90 09/01/21 08:00 127 H 32 H 101/71 09/01/21 07:31 129 H 32 H 109/66 91 09/01/21 07:30 132 H 27 H 91 09/01/21 07:19 117 H 22 91 09/01/21 07:18 150 H 38 H 88 L 09/01/21 07:03 36.7 C 128 H 26 H 109/66 92 Laboratory Results Cardiac Enzymes 09/01/21 09/01/21 09/01/21 Range/Units 07:23 09:02 09:02 AST 29 (13-39) U/L Troponin I High Sens 30.6 H 33.1 H (0-14) pg/ml B-Natriuretic Peptide 56 (0-100) pg/ml 09/01/21 Range/Units 14:39 AST (13-39) U/L Troponin I High Sens 40.7 H (0-14) pg/ml B-Natriuretic Peptide (0-100) pg/ml Coagulation 09/01/21 09/01/21 Range/Units 09:02 13:18 PT 11.1 (9.0-12.0) Seconds APTT 26.0 (21.0-31.0) Seconds B-Natriuretic Peptide 56 (0-100) pg/ml CBC 09/01/21 Range/Units 07:23 WBC 8.68 (4.8-10.8) K/uL RBC 3.89 L (4.2-5.4) M/uL Hgb 10.4 L (12.0-16.0) g/dL Hct 33.3 L (37-47) % Plt Count 370 (130-400) K/uL Neut # (Auto) 6.78 H (1.4-6.5) K/uL Lymph # (Auto) 1.02 L (1.2-3.4) K/uL Wilkin # (Auto) 0.78 H (0.11-0.59) K/uL Eos # (Auto) 0.07 (0-0.5) K/uL Baso # (Auto) 0.00 (0-0.2) K/uL Comprehensive Metabolic Panel 09/01/21 09/01/21 09/01/21 Range/Units 07:23 13:18 14:39 Sodium 128 L 129 L 129 L (136-145) mmol/L Potassium 4.5 4.7 4.6 (3.5-5.1) mmol/L Chloride 83 L 88 L 90 L (98-107) mmol/L Carbon Dioxide 25 27 23 (21-32) mmol/L BUN 77 H 79 H 75 H (6-23) mg/dl Creatinine 5.14 H* 5.03 H* 4.86 H* (0.6-1.2) mg/dl Glucose 151 H 137 H 132 H (70-99(Fasting)) mg/dl Calcium 9.1 8.4 L 7.9 L (8.5-10.1) mg/dl AST 29 (13-39) U/L ALT 22 (7-52) U/L Alkaline Phosphatase 117 H (34-104) U/L Total Protein 7.5 (6.0-8.3) gm/dl Albumin 3.1 L (3.4-5.0) gm/dl Intake and Output 09/01/21 09/01/21 09/01/21 06:59 14:59 22:59 Intake Total 507.917 / 1479.894 8751.4 / 1556.317 Output Total 200 / 200 Balance 307.917 / 4410.705 9748.4 / 1356.317 Intake: IV 507.917 / 8225.561 1632.4 / 1556.317 Heparin Sodium/Dextrose 25,000 48.4 / 48.4 units In 500 ml @ 1,100 UNITS/ HR 22 mls/hr IV .[id number] [facility] Rx #:[id number] Sodium Chloride 0.9% 1000ML 1, 1000 / 1000 000 ml @ 999 mls/hr IV .Q1H1M ONE Rx#:[id number] Sodium Chloride 0.9% 500 ml @ 500 / 500 999 mls/hr IV .Q31M [facility] Rx#: [id number] dilTIAZem HCL 125 mg In 7.917 / 7.917 Dextrose 5% 100 ml @ 0 MG/HR IV .Q0M [facility] Rx#:[id number] Output: Urine Amount (Catheter) 200 / 200 Bellamy/Indwelling 200 / 200 Other: Weight 75.5 kg Weight Measurement Method [facility] Patient Weight 09/02/21 06:59 Weight 75.5 kg Diagnostic Findings EKG performed today 09/01/2021 revealed atrial fibrillation with rapid ventricular sponsor 129 bpm, mild nonspecific T wave flattening.
[2021-09-01] MEDS: ROSUVASTATIN CALCIUM 20 MG TAB PO SCH (20:09)
[2021-09-01] MEDS: MIRTAZAPINE TAB 15 MG TAB PO SCH (20:09)
--- NOTE | 2021-09-01 20:44 | Ultrasound Report ---
US renal/blad retro comp CLINICAL HISTORY: ANTONIO, Oligoanuric, h/o mets, evaluate for obstruction. COMPARISON: None. TECHNIQUE: Multiple grayscale and color images of the kidneys and bladder. FINDINGS: Right kidney: The kidney is normal in size and echogenicity. There is no evidence for renal calculus or hydronephrosis. There is no evidence for solid renal mass. There is no evidence for medical renal disease. The kidney measures 10.4 cm in greatest length Left kidney: The kidney is normal in size and echogenicity. There is no evidence for renal calculus o r hydronephrosis. There is no evidence for solid renal mass. There is no evidence for medical renal d isease. The kidney measures 12.5 cm in greatest length Bladder: The bladder is empty with a Bellamy catheter in place. When scanning the right kidney, the inferior margin right lobe of the liver was also imaged. There is a mass present measuring 2.3 x 2.2 x 2.2 cm. IMPRESSION: 1. Negative ultrasound the kidneys bilaterally with no evidence for hydronephrosis. 2. Bellamy catheter within a collapsed bladder. 3. Evidence for liver mass. ACT 112: Negative or not required by law. Electronically signed by: Kamar Phoenix M.D. 09/01/2021 8:42 PM
[2021-09-01 21:32] LABS: Partial Thromboplastin Time 27.1 Seconds (21.0-31.0)
[2021-09-02] MEDS ORDERED: ALBUMIN 25% 100 mL 25 GM/100 ML VIAL IV ONE (05:00)
[2021-09-02] MEDS ORDERED: ALBUT/IPRATROP 3MG/0.5MG NEB 3 ML VIAL NEB STA (05:00)
[2021-09-02 06:13] LABS: iSTAT Allen Test Pass; iSTAT Arterial Blood Gas HCO3 24 meg/L (19-24); iSTAT Arterial Blood Gas pCO2 46 mmHg (35-46); iSTAT Arterial Blood Gas pH 7.34 (7.35-7.45); iSTAT Arterial Blood Gas pO2 76 mmHg (80-95); iSTAT Carbon Dioxide 26 mmol/L (24-31); iSTAT Site L Radial
[2021-09-02 06:22] LABS: Hemoglobin 8.8 g/dL (12.0-16.0); Mean Corpuscular Hemoglobin 26.7 pg (25-34); Mean Corpuscular Hgb Conc 31.4 g/dL (32-36); Mean Corpuscular Volume 85.1 fL (80-100); Mean Platelet Volume 8.7 fL (7.4-10.4); Platelet Count 359 K/uL (130-400); RDW Coefficient of Variation 18.8 % (11.5-14.5); Red Blood Count 3.29 M/uL (4.2-5.4); White Blood Count 8.98 K/uL (4.8-10.8)
--- NOTE | 2021-09-02 06:28 | Electrocardiogram Report ---
Test Reason : Blood Pressure : / mmHG Vent. Rate : 129 BPM Atrial Rate : 117 BPM P-R Int : 000 ms QRS Dur : 082 ms QT Int : 288 ms P-R-T Axes : 000 006 143 degrees QTc Int : 421 ms Poor data quality, interpretation may be adversely affected Atrial fibrillation with rapid ventricular response Nonspecific ST and T wave abnormality Abnormal ECG When compared with ECG of 20-JUN-2021 23:48, Atrial fibrillation has replaced Sinus rhythm Nonspecific T wave abnormality now evident in Inferior leads Nonspecific T wave abnormality, worse in Lateral leads Confirmed by Bereket Griffin ([id number]) on 09/02/2021 6:28:33 AM Referred By: REFERRED SELF Confirmed By:Bereket Griffin
[2021-09-02 06:55] LABS: Albumin Globulin Ratio 0.8 (0.9-2); Albumin Level 2.9 gm/dl (3.4-5.0); BUN Creatinine Ratio 16.9 (10-20); Bilirubin,Total 0.4 mg/dl (0.2-1.0); Creatinine Clr Calc Pharmacy 8.1 ml/min; Est GFR (African American) 8.8 ml/min; Est GFR (Non-African American) 7.6 ml/min; Globulin 3.7 gm/dl (2.5-4.0); Magnesium 2.5 mg/dl (1.7-2.4); Potassium 4.7 mmol/L (3.5-5.1); Total Protein 6.6 gm/dl (6.0-8.3)
--- NOTE | 2021-09-02 07:38 | XRay Report ---
SINGLE VIEW CHEST CLINICAL HISTORY: Hypoxia. FINDINGS: An AP, portable, upright chest radiograph is compared to study dated 09/01/2021. Correlation is made with PET/CT dated 03/17/2020. The cardiomediastinal silhouette is unremarkable. A pleural cath eter is again seen on the right. There is a small pleural effusion at the right lung base with right basilar opacities. Fluid is also seen along the right minor fissure. There is complete opacification of the left hemithorax which has increased from previous. No pneumothorax is seen. The skeletal struc tures are osteopenic. 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 Advanced arthriti c change is seen in the shoulders and spine. There are chronic bilateral rib fractures. IMPRESSION: 1. There is complete opacification of the left hemithorax consistent with a large pleural effusion an d atelectasis of the left lung. This has increased from yesterday. Correlate clinically for the prese nce of superimposed pneumonia. 2. A pleural catheter is seen on the right. There is a small residual right pleural effusion with rig ht basilar opacities. This is unchanged from yesterday. 3. Diffuse osteoblastic metastatic disease. ACT 112: Negative or not required by law. Electronically signed by: Henrik Lyons M.D. 09/02/2021 7:37 AM
--- NOTE | 2021-09-02 07:45 | Pulmonary Consultation ---
Date of Consultation September 02, 2021 Assessment & Plan (1) Malignant pleural effusion: (2) Acute respiratory failure with hypoxia: (3) Metastatic breast cancer: Impression: 86-year-old female with history of metastatic breast cancer and known right malignant effusion now with rapidly progressive left effusion. Etiology is unclear however underlying malignancy would be most likely. Recommendations: 1. Left pleural effusion: Discussed options with patient at the bedside. These would include diagnostic and therapeutic catheter thoracentesis, placement of pigtail catheter, or placement of indwelling tunneled pleural catheter. Given the rapid progression of fluid based on chest x-ray 24 hours apart, Pleurx catheter appears to be the most reasonable option to provide the patient long- term symptom relief. This was discussed with the patient in detail. Questions were answered to the best of my ability. She expressed understanding and is in agreement with the plan as outlined. 2. Hypoxemic respiratory failure: Suspect multifactorial although the pleural effusion certainly appears to be the major contributing factor. We will see how she does with alleviation of the atelectasis and pleural fluid. Continue supplemental oxygen as needed. 3. CODE STATUS reviewed. The patient is DNR/DNI which is appropriate. 4. Think we have a likely explanation for the patient's hypoxemia and do not feel that additional evaluation including CT angiogram or other studies are required at this point in time. Can restart the heparin 46 hours after pulmonary diagnostic procedures are completed. Patient can follow-up with Dr. العراقي in the outpatient setting. Feel free to contact us with additional questions or concerns History of Present Illness Attending Physician: Vianca Esteban MD History of Present Illness Asked by hospitalist to evaluate this patient with bilateral pleural effusions and history of breast cancer and hypoxemic respiratory failure in setting of acute kidney injury and atrial fibrillation with rapid ventricular response. History is obtained from discussion with the patient and reviewed electronic medical record. The patient is an 86-year-old female who follows with Dr. العراقي from [facility] here locally. She has a history of metastatic breast cancer and developed a malignant right-sided effusion. She had a right-sided Pleurx catheter placed at [facility] last month and has been draining it fairly regularly. She has a known history of diastolic heart failure. She presented to the emergency room yesterday with 1 week history of shortness of breath. She states the shortness of breath had been gradually progressive over the last several weeks. She does not recall any trauma to the chest. No fevers chills night sweats or other constitutional symptoms. She is on oxygen at 3 L/min at baseline but has had to increase this up to 6L. She had difficulty completing her activities of daily living due to shortness of breath and fatigue. In the emergency room she had a chest x-ray performed revealing opacification of the inferior left hemithorax. She was also noted to be in atrial fibrillation with rapid ventricular response. She was initiated on Cardizem in the emergency room initially placed on a heparin drip. She reportedly converted back to sinus rhythm. Heparin has been on hold for possible procedures. Allergies Allergy/AdvReac Type Severity Reaction Status Date / Time Beta-Blockers Allergy Severe FACIAL/MOUTH Verified 06/20/21 22:41 (Beta-Adrenergic Bloc SWELLING Home Medications Medication Instructions Recorded Confirmed Type felodipine 10 mg tablet,extended 10 mg PO DAILY 02/05/20 09/01/21 History release 24 hr fluoxetine 20 mg capsule 20 mg PO DAILY 02/05/20 09/01/21 History furosemide 40 mg tablet 40 mg PO DAILY 02/05/20 09/01/21 History losartan 100 mg tablet 100 mg PO DAILY 02/05/20 09/01/21 History anastrozole 1 mg tablet (Arimidex) 1 mg PO DAILY 03/18/20 09/01/21 History cholecalciferol (vitamin D3) 25 25 mcg PO DAILY 03/18/20 09/01/21 History mcg (1,000 unit) capsule acetaminophen 500 mg tablet 500 mg PO Q6H PRN tab 09/16/20 09/01/21 History (Tylenol Extra Strength) ascorbate calcium (vitamin C) 500 500 mg PO DAILY 09/16/20 09/01/21 History mg tablet docusate sodium 100 mg capsule 100 mg PO BID 09/16/20 09/01/21 History (Colace) rosuvastatin 40 mg tablet 40 mg PO HS 09/16/20 09/01/21 History sennosides 8.6 mg tablet (Senokot) 8.6 mg PO BID 09/16/20 09/01/21 History vit no.133-ferrous 1 tab PO DAILY 06/20/21 09/01/21 History fumarate 28 mg-folic acid 800 mcg tablet () vitamin E 400 unit capsule 400 unit PO DAILY 06/20/21 09/01/21 History mirtazapine 15 mg tablet 15 mg PO HS 09/01/21 09/01/21 History oxycodone 5 mg tablet 5 mg PO Q8H PRN 09/01/21 09/01/21 History Patient History Medical History Bone metastases History of left breast cancer History of Mohs micrographic surgery for skin cancer Hx of basal cell carcinoma Hx of essential hypertension Hx of multiple pulmonary nodules Surgical History History of total bilateral knee replacement Hx of cholecystectomy Hx of total hysterectomy Family History Sister Heart disease Brother Heart disease Mother Cancer, Onset Age: 56 opened for surgery, found to be widespread metastasis Father Lung disease Son Hypertension Social History Smoking Status: Never smoker Second Hand Exposure: No; Hx Alcohol Use: No Hx Substance Use: No Preferred Language: Citizen Of [place] Communication Ability: Effective Visual Impairment: Limited Hearing Ability: Hard of Hearing Executive Relations Specialist Required: No Beliefs That Will Affect Care: None marital status: Unknown Current Living Situation: Alone Current Living Situation Comment: [facility] current occupational status: 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 How many Children do You have: 1 Feels Safe at Home: Yes Safety Concerns: Feels Safe At This Time Childhood Exposure to Second-Hand Smoke: Yes caffeine: Yes (coffee 1 cup in am) during the past year weight has: decreased > 10 lbs Dental Care, Regularly: Yes Physical Activity Frequency: Does not Exercise Seatbelt Use: always Sunscreen Use: Yes Assistive Devices: Glasses, Hearing Aid - Bilateral, Oxygen - Continuous, Walker and Wheelchair Review of Systems Review of Systems: All systems reviewed & are unremarkable except as noted in Subjective Physical Exam Constitutional: + obese and + frail appearing Neck: trachea midline, no thyromegaly Respiratory: + labored breathing and + tachypneic Auscultation: + diminished lung sounds and + crackles Diminished lung sounds with dullness to percussion at the left lung base. Right-sided Pleurx catheter dressing in place Cardiovascular: RRR, no murmur, no edema Gastrointestinal (Abdomen): normal bowel sounds, soft, nontender, no hepatosplenomegaly Musculoskeletal: Extremities: extremities normal to inspection Skin: no rashes, warm and dry Neurologic: Nonfocal exam Lymphatic: no cervical lymphadenopathy Results & Data Results & Data ([facility]) Vital Signs (Past 12 Hours) Vital Signs Temp Pulse Pulse Resp BP Pulse Ox Pulse Ox 09/02/21 06:09 81 25 H 91 09/02/21 03:49 81 09/02/21 03:26 36.6 C 84 24 140/76 93 09/02/21 00:00 94 09/01/21 23:34 92 09/01/21 23:15 36.9 C 82 22 135/68 89 L Critical Care Results & Data Vital Signs (Past 12 Hours) Vital Signs Temp Pulse Pulse Resp BP Pulse Ox Pulse Ox 09/02/21 06:09 81 25 H 91 09/02/21 03:49 81 09/02/21 03:26 36.6 C 84 24 140/76 93 09/02/21 00:00 94 09/01/21 23:34 92 09/01/21 23:15 36.9 C 82 22 135/68 89 L Lab & Micro Results (Past 24 Hours) RBC 3.29 M/uL (4.2-5.4) L 09/02/21 WBC 8.98 K/uL (4.8-10.8) 09/02/21 Hgb 8.8 g/dL (12.0-16.0) L 09/02/21 Hct 28.0 % (37-47) L 09/02/21 MCV 85.1 fL (80-100) 09/02/21 MCH 26.7 pg (25-34) 09/02/21 MCHC 31.4 g/dL (32-36) L 09/02/21 RDW Standard Deviation 59.0 fL (36.4-46.3) H 09/02/21 RDW Coefficient of Variation 18.8 % (11.5-14.5) H 09/02/21 Plt Count 359 K/uL (130-400) 09/02/21 MPV 8.7 fL (7.4-10.4) 09/02/21 Na 126 mmol/L (136-145) L 09/02/21 K 4.7 mmol/L (3.5-5.1) 09/02/21 Cl 87 mmol/L (98-107) L 09/02/21 CO2 23 mmol/L (21-32) 09/02/21 Anion Gap 16 (3-11) H 09/02/21 BUN 82 mg/dl (6-23) H 09/02/21 Creatinine 4.85 mg/dl (0.6-1.2) H* 09/02/21 Estimated GFR ( Amer) 8.8 ml/min 09/02/21 Estimated GFR (Non-Af Amer) 7.6 ml/min 09/02/21 BUN/Creatinine Ratio 16.9 (10-20) 09/02/21 Glu 104 mg/dl (70-99(Fasting)) H 09/02/21 Ca 8.0 mg/dl (8.5-10.1) L 09/02/21 Phosphorus Level 7.5 mg/dl (2.5-4.9) H 09/01/21 Total Bilirubin 0.4 mg/dl (0.2-1.0) 09/02/21 Direct Bilirubin 0.0 mg/dl (0-0.2) 09/02/21 AST 24 U/L (13-39) 09/02/21 ALT 18 U/L (7-52) 09/02/21 Alkaline Phosphatase 110 U/L (34-104) H 09/02/21 TP 6.6 gm/dl (6.0-8.3) 09/02/21 Albumin 2.9 gm/dl (3.4-5.0) L 09/02/21 Globulin 3.7 gm/dl (2.5-4.0) 09/02/21 Albumin/Globulin Ratio 0.8 (0.9-2) L 09/02/21 Mg 2.5 mg/dl (1.7-2.4) H 09/02/21 05:59 09/02/21 Calcium Level 8.0 mg/dl (8.5-10.1) L 09/02/21 05:59 09/02/21 Prothromb Time International Ratio 1.0 (0.9-1.1) 09/01/21 13:18 09/01/21 Venous Blood pH 7.36 (7.36-7.41) 09/01/21 07:50 09/01/21 Venous Blood Partial Pressure CO2 48 mmHg (38-50) 09/01/21 07:50 09/01/21 Venous Blood Partial Pressure O2 34 mmHg 09/01/21 07:50 09/01/21 Venous Blood HCO3 27 mmol/L 09/01/21 07:50 09/01/21 Venous Blood Base Excess 1.0 mEq/L 09/01/21 07:50 09/01/21 Venous Blood Oxygen Saturation < 60.0 % 09/01/21 07:50 09/01/21 Filiberto Test Pass 09/02/21 05:55 09/02/21 Diagnostic Findings (Past 24 Hours) Chest X-Ray 09/01/21 07:28 XR chest 1V portable CLINICAL HISTORY: illness, sob TECHNIQUE: Single frontal radiograph of the chest was obtained. Comparison: Comparison is made to chest radiograph 01/27/2020 FINDINGS: No lines and tubes are seen. Cardiomegaly is noted. Left retrocardiac opacity is seen. Opacity in the right midlung is favored to represent atelectasis. There is mild pulmonary edema. Small bilateral pleural effusions are seen. IMPRESSION: 1. Left retrocardiac opacity is favored to represent atelectasis, pneumonia, and/or aspiration. 2. Small bilateral pleural effusions are seen. 3. Mild pulmonary edema. ACT 112: Negative or not required by law. Electronically signed by: Bertin Mccann M.D. 09/01/2021 7:56 AM Venous Doppler Study 09/01/21 09:07 US venous doppler [facility] CLINICAL HISTORY: leg swelling, acute hypoxia TECHNIQUE: Bilateral lower extremity real-time compression venous ultrasound with Color Doppler imaging. Utilizing real-time ultrasonic imaging multiple real time high-resolution ultrasonic images with compression and noncompression maneuvers of the deep venous system in addition to color doppler imaging were performed from the common femoral vein through the proximal calf veins. COMPARISON: None available at the time of this dictation. FINDINGS: Currently there is normal compressibility of the deep venous system from the common femoral vein through the proximal calf veins. No superficial venous thrombosis is identified. Impression: No evidence of deep venous thrombus. ACT 112: Negative or not required by law. Electronically signed by: Bertin Mccann M.D. 09/01/2021 12:07 PM Renal Ultrasound 09/01/21 15:02 US renal/blad retro comp CLINICAL HISTORY: ANTONIO, Oligoanuric, h/o mets, evaluate for obstruction. COMPARISON: None. TECHNIQUE: Multiple grayscale and color images of the kidneys and bladder. FINDINGS: Right kidney: The kidney is normal in size and echogenicity. There is no evidence for renal calculus or hydronephrosis. There is no evidence for solid renal mass. There is no evidence for medical renal disease. The kidney measures 10.4 cm in greatest length Left kidney: The kidney is normal in size and echogenicity. There is no evidence for renal calculus or hydronephrosis. There is no evidence for solid renal mass. There is no evidence for medical renal disease. The kidney measures 12.5 cm in greatest length Bladder: The bladder is empty with a Bellamy catheter in place. When scanning the right kidney, the inferior margin right lobe of the liver was also imaged. There is a mass present measuring 2.3 x 2.2 x 2.2 cm. IMPRESSION: 1. Negative ultrasound the kidneys bilaterally with no evidence for hydronephrosis. 2. Bellamy catheter within a collapsed bladder. 3. Evidence for liver mass. ACT 112: Negative or not required by law. Electronically signed by: Kamar Phoenix M.D. 09/01/2021 8:42 PM Chest X-Ray 09/02/21 05:00 SINGLE VIEW CHEST CLINICAL HISTORY: Hypoxia. FINDINGS: An AP, portable, upright chest radiograph is compared to study dated 09/01/2021. Correlation is made with PET/CT dated 03/17/2020. The cardiomediastinal silhouette is unremarkable. A pleural catheter is again seen on the right. There is a small pleural effusion at the right lung base with right basilar opacities. Fluid is also seen along the right minor fissure. There is complete opacificat ion of the left hemithorax which has increased from previous. No pneumothorax is seen. The skeletal structures are osteopenic. 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 Advanced arthritic change is seen in the shoulders and spine. There are chronic bilateral rib fractures. IMPRESSION: 1. There is complete opacification of the left hemithorax consistent with a large pleural effusion and atelectasis of the left lung. This has increased from yesterday. Correlate clinically for the presence of superimposed pneumonia. 2. A pleural catheter is seen on the right. There is a small residual right pleural effusion with right basilar opacities. This is unchanged from yesterday. 3. Diffuse osteoblastic metastatic disease. ACT 112: Negative or not required by law. Electronically signed by: Henrik Lyons M.D. 09/02/2021 7:37 AM I & O Totals 24 Hours 09/01/21 09/02/21 09/03/21 06:59 06:59 06:59 Intake Total 1896.317 / 1896.317 Output Total 402 / 402 Balance 1494.317 / 1494.317 Cumulative 09/01/21 07:02 thru 09/02/21 05:51 Intake Total 1896.317 Output Total 402 Balance 1494.317 RT Ventilator Mngmt (Last Documented) Ventilator Ordered Settings Respiratory Rate 25 09/02/21 06 :09 Ventilator - PT Measurements Respiratory Rate 25 PG Care Time/CCT Total # of Minutes Spent Total Time Spent with Patient: Total time spent is greater than 50% in coordination of care (as documented) at patient's floor/unit and/or counseling patient: Coding Level of Care Code 83371 Initial Inpt Care Lvl 3 Diagnoses Malignant pleural effusion J91.0 Acute respiratory failure with hypoxia J96.01 Metastatic breast cancer C50.919
[2021-09-02] MEDS: FLUoxetine HCL 20 MG CAP PO SCH (07:46)
[2021-09-02] MEDS: MULTIVITAMIN TAB PO SCH (07:46)
[2021-09-02] MEDS: ANASTROZOLE 1 MG TAB PO SCH (07:46)
[2021-09-02 07:47] LABS: Estimated Average Glucose 169 mg/dl; Hemoglobin A1C 7.5 % (4.5-5.6)
[2021-09-02] MEDS ORDERED: LIDOCAINE 2% LOCAL 50 ML VIAL ONE (08:20)
[2021-09-02 09:10] LABS: Creatinine Urine Random 130.1 mg/dl; Total Protein Urine Random 263.4 mg/dl (0-11.9)
--- NOTE | 2021-09-02 09:31 | XRay Report ---
XR chest 1V portable at 9:16 AM CLINICAL HISTORY: S/P placement of Left PleurX Catheter. Evaluate for pneumothorax COMPARISON STUDY: 09/02/2021 at 5:07 AM TECHNIQUE: 1 view of the chest FINDINGS: Single frontal view of the chest demonstrates the cardiomediastinal silhouette to be within normal li mits. There has been interval placement of a Pleurx catheter at the left lung base with almost comple te resolution of previously identified left pleural effusion. There is also been resolution of left b asilar atelectasis. There is no associated left-sided pneumothorax. The right side, there is a small to moderate-sized, partially loculated pleural effusion with fluid s een within the minor fissure. The lungs are otherwise clear of confluent alveolar opacities. There is no evidence for vascular congestion. There is no acute osseous pathology. IMPRESSION: 1. Status post left Pleurx catheter placement with almost complete resolution of left pleural effusio n and resolution of left basilar atelectasis. 2. No evidence for pneumothorax. 3. Small to moderate size loculated right pleural effusion is present. ACT 112: Negative or not required by law. Electronically signed by: Kamar Phoenix M.D. 09/02/2021 9:29 AM
--- NOTE | 2021-09-02 09:33 | Procedure Note ---
Procedure Note Date of Service September 02, 2021 Note Procedure: Ultrasound guided left Pleurx catheter placement. Indication: Recurrent malignant effusion Consent: Signed by patient and verified with timeout prior to procedure. Anesthesia: 15 mL's 1% lidocaine without epinephrine locally. Pig Breeder: Dr. Power Pisano Procedure: The patient was brought to the sedation unit. Standard monitoring was applied. Appropriate radiographic films had been reviewed prior to commencement of the procedure. Risks and benefits were again discussed with patient consent was verified. The patient was placed in the left side up lateral decubitus position. Limited thoracic ultrasound was performed which revealed a moderate to large sized free- flowing effusion with compressive atelectasis. Site appropriate for the pleurotomy was marked. Skin was prepped and draped in normal sterile fashion. Using 1% lidocaine, the skin and soft tissues down to the pleura were anesthetized. A tract extending approximately 8 to 10 cm anteriorly from the pleurotomy site was also infiltrated and a site appropriate for the exit of the Pleurx catheter was marked. A 1 cm skin asad was made at the posterior site. The catheter over the needle apparatus was advanced into the pleural space with pleural fluid easily aspirated. A wire was passed through the catheter after the needle was removed. The Pleurx catheter was then loaded on the tunneling device. A 1cm skin incision was made at the anterior catheter exit site. The tunneling device with the attached Pleurx catheter were passed from the anterior incision back to the posterior incision until the cuff of the Pleurx catheter resided within the subcutaneous tissues. The catheter was palpated along its course and no kinking was identified. Serial dilatation was then performed over the wire with the pull-away catheter being left in place. The Pleurx was removed from the tunneling mechanism and advanced through the peel-away catheter. The catheter sheath was then peeled back as the Pleurx catheter was advanced into the pleural space. The Pleurx catheter course was palpated and no kinks were felt. It was attached to wall suction and a total of 1600mL's was removed. Using 1-0 silk, 2 stitches were placed at the exit Pleurx site and the catheter secured in place. 3 small Vicryl sutures were used to close the posterior incision. A sterile dressing was applied. The patient tolerated the procedure well without obvious complication. Post procedure x-ray demonstrated resolution of the effusion without significant pneumothorax and the indwelling pleural catheter to be in good position Estimated blood loss: Less than 10 mL's Coding CPT Codes Pulmonary/Thoracic - Pulmonary and Thoracic: 31099 Insert pleural cathereter w/cuff ([id number]) Pulmonary/Thoracic - Pulmonary and Thoracic: 38793 US, Chest, real time with imaging documentation ([id number]) [facility] [place] Procedure Codes (Charges) Pulmonary/Thoracic Procedure 1: Pulmonary and Thoracic: 34720 Insert pleural cathereter w/cuff Procedure 2: Pulmonary and Thoracic: 76994 US, Chest, real time with imaging documentation
[2021-09-02] MEDS ORDERED: STAT IV Infusion **Titration per Protocol STA (09:46)
[2021-09-02] MEDS ORDERED: dilTIAZem HCl 5 MG/ML 5 ML VIAL IV STA (09:46)
--- NOTE | 2021-09-02 09:59 | Cardiology Progress Note ---
Date of Service September 02, 2021 Assessment & Plan (1) Malignant pleural effusion: (2) Atrial fibrillation with RVR: (3) ANTONIO (acute kidney injury): Plan: (1) Malignant pleural effusion: -Pulmonary input noted and appreciated. -Progressive hypoxia overnight, and repeat CXR this am revealed progressive opacification of the left lung. -Pt underwent pleural catheter placement 09/02/21, 9 am, 1600 ml of pleural fluid removed at time of procedure and another 550 ml in suction canister at this time. -given history of metastatic breast carcinoma , suspect malignant effusion, studies sent. (2) Atrial fibrillation with RVR: -Pt had been back in sinus rhythm at time of my assessment the evening of 09/01/21. -Reverted back to atrial fibrillation 09/02/21 at 8:37 am. -Will resume diltiazem infusion for rate control acutely -Noted facial swelling with beta juancarlos in the past. -stroke prophylaxis-heparin gtt on hold for pleural catheter, per pulm note, OK to resume 4-6 hrs post procedure, 6 hrs will be 3 pm on 09/02/21. (3) ANTONIO (acute kidney injury): -creatinine 5.14 on presentation, 4.85 today. IVF on hold. Anticipate improvement with treatment of #1 and #2. Admission and Anticipated Discharge Date Admission Date: September 01, 2021 Galdino Medel is seen in cardiology follow up of chief complaint of shortness of breath and findings of left pleural effusion and paroxysmal atrial fibrillation. She is s/p pulmonary consultation this am and placement of a left sided pleural catheter this am. She states "I can breath again". Comfortable, denies chest pain , palpitation, or SOB despite being back in AF. Review of Systems Review of Systems: All systems reviewed & are unremarkable except as noted in HPI & below Physical Exam 2 Constitutional: chronically ill in appearance without acute distress. Respiratory: minimally reduced breath sounds at the bases, much improved on the left compared to 09/01/21 Cardiovascular: Rate/Rhythm: + tachycardic and + irregularly irregular Heart Sounds: no murmur Vessels: no JVD Extremities: no edema Gastrointestinal (Abdomen): normal bowel sounds, soft, nontender, no hepatosplenomegaly Neurologic: PERRL, EOMI, accommodation nl, no face palsy, no dysarthria Results & Data ([facility]) Vital Signs (Past 12 Hours) Vital Signs Temp Pulse Pulse Resp BP Pulse Ox Pulse Ox 09/02/21 08:00 91 09/02/21 07:44 36.8 C 92 H 32 H 167/81 H 88 L 09/02/21 06:09 81 25 H 91 09/02/21 03:49 81 09/02/21 03:26 36.6 C 84 24 140/76 93 09/02/21 00:00 94 09/01/21 23:34 92 09/01/21 23:15 36.9 C 82 22 135/68 89 L Laboratory Results Cardiac Enzymes 09/01/21 09/01/21 09/02/21 Range/Units 14:39 20:42 05:59 AST 24 (13-39) U/L Troponin I High Sens 40.7 H 44.1 H (0-14) pg/ml Coagulation 09/01/21 09/01/21 Range/Units 13:18 20:42 PT 11.1 (9.0-12.0) Seconds APTT 26.0 27.1 (21.0-31.0) Seconds CBC 09/02/21 Range/Units 05:59 WBC 8.98 (4.8-10.8) K/uL RBC 3.29 L (4.2-5.4) M/uL Hgb 8.8 L (12.0-16.0) g/dL Hct 28.0 L (37-47) % Plt Count 359 (130-400) K/uL Comprehensive Metabolic Panel 09/01/21 09/01/21 09/02/21 Range/Units 13:18 14:39 05:59 Sodium 129 L 129 L 126 L (136-145) mmol/L Potassium 4.7 4.6 4.7 (3.5-5.1) mmol/L Chloride 88 L 90 L 87 L (98-107) mmol/L Carbon Dioxide 27 23 23 (21-32) mmol/L BUN 79 H 75 H 82 H (6-23) mg/dl Creatinine 5.03 H* 4.86 H* 4.85 H* (0.6-1.2) mg/dl Glucose 137 H 132 H 104 H (70-99(Fasting)) mg/dl Calcium 8.4 L 7.9 L 8.0 L (8.5-10.1) mg/dl Direct Bilirubin 0.0 (0-0.2) mg/dl AST 24 (13-39) U/L ALT 18 (7-52) U/L Alkaline Phosphatase 110 H (34-104) U/L Total Protein 6.6 (6.0-8.3) gm/dl Albumin 2.9 L (3.4-5.0) gm/dl Intake and Output 09/01/21 09/02/21 09/02/21 22:59 06:59 14:59 Intake Total 1048.4 / 1896.317 340 / 1896.317 100 / 100 Output Total 125 / 402 77 / 402 Balance 923.4 / 1494.317 263 / 1494.317 100 / 100 Intake: IV 1048.4 / 1556.317 100 / 100 ALBUMIN 25% 100 mL 25 gm In 100 100 / 100 ml @ 50 mls/hr IV ONE ONE Rx#: [id number] Heparin Sodium/Dextrose 25,000 48.4 / 48.4 units In 500 ml @ 1,100 UNITS/ HR 22 mls/hr IV .[id number] [facility] Rx #:[id number] Sodium Chloride 0.9% 1000ML 1, 1000 / 1000 000 ml @ 999 mls/hr IV .Q1H1M ONE Rx#:[id number] Oral 340 / 340 Output: Urine Amount (Catheter) 125 / 400 75 / 400 Bellamy/Indwelling 125 / 400 75 / 400 # Bowel Movements 2 / 2 Other: Weight 76.4 kg 76.4 kg Weight Measurement Method Built in [facility] Patient Weight 09/03/21 06:59 Weight 76.4 kg Diagnostic Findings EKG performed 09/02/21, 9:51 am and reviewed personally: atrial fibrillation with rapid ventricular response at 135 bpm, no significant ST changes.
[2021-09-02] MEDS ORDERED: dilTIAZem HCL 125 MG in DEXTROSE 5% 100 ML IV SCH (10:00)
[2021-09-02 10:13] LABS: Total Protein Pleural Fluid 3.6 gm/dl
--- NOTE | 2021-09-02 14:13 | Nephrology Progress Note ---
Date of Service September 02, 2021 Assessment & Plan (1) ANTONIO (acute kidney injury): Plan: Yoko Ischemic ATN/ - Her renal function have declined as expected , yoko ATN. - no IV fluids or diuretic today.UOP 2 Oliguric range. - Reasses in am regarding starting lasix. - Input and output - Continue CARLOS ALBERTO at the moment. - Rate control. - She has moderate hyponatremia, expect this to improve as her fluid status improves. - She had a h/o metastatic ,Renal Ultrasound scan rules out obstruction. I spoke to son, explaining the various scenario's, if a situation for dialysis arises, he would NOT want it and opt for conservative measures. (2) Atrial fibrillation with RVR: Plan: Controlled now, Cardiology on board. (3) Left lower lobe pneumonia: (4) Metastatic breast cancer: (5) Hx of multiple pulmonary nodules: (6) Bone metastases: Admission and Anticipated Discharge Date Admission Date: September 01, 2021 Subjective Comfortable, denies chest pain , palpitation, or SOB the pleural tap, on on 3l of Oxygen Passing urine. no dysuric symptomS, No nausea or diarrhea. Review of Systems Review of Systems: Constitutional: No fever, sweats or chills Respiratory: No cough, sputum,no dyspnea at rest Cardiovascular: No chest pain, tightness or palpitations Abdomen: no pain, vomiting, constipation , nausea or diarrhea Musculoskeletal: No joint pain, calf pain, swelling - gets trace ankle swelling but currently not swollen Neurologic: + generalized weakness, no numbness/tingling, or balance problems Psychiatric: No anxiety or depression Skin: No rash or itch Physical Exam Physical Exam: General: awake, alert, no apparent distress, appears volume depleted. Head: Normocephalic, atraumatic ENT: PERRL, EOMI, no pharyngeal exudate, mucous membranes dry Chest: + pleurex catheter on R posterior chest wall, no surrounding erythema, diminished breath sounds to auscultation at bases bilaterally, on 6 L via NC Cardiac: irregularly irregular , no JVD. Results & Data ([facility]) Vital Signs (Past 12 Hours) Vital Signs Temp Pulse Pulse Pulse Resp BP Pulse Ox 09/02/21 11:41 114 H 131/73 09/02/21 11:13 114 H 122/75 09/02/21 11:04 137 H 114/71 09/02/21 10:56 131 H 22 126/67 09/02/21 10:55 37.0 C 130 H 26 H 116/66 91 09/02/21 08:00 91 09/02/21 07:44 36.8 C 92 H 32 H 167/81 H 88 L 09/02/21 06:09 81 25 H 91 09/02/21 03:49 81 09/02/21 03:26 36.6 C 84 24 140/76 93 Laboratory Results 09/02/21 05:59 09/02/21 05:59
[2021-09-02 14:33] LABS: Appearance Pleural Fluid Slightly Hazy; Color Pleural Fluid Yellow; RBC Pleural Fluid (A) 3000 /uL; Source Pleural Fluid L.LUNG; WBC Pleural Fluid (A) 771 /uL
--- NOTE | 2021-09-02 14:34 | Hospitalist Progress Note ---
Date of Service September 02, 2021 Assessment & Plan (1) Malignant pleural effusion: (2) Acute respiratory failure with hypoxia: Plan: S/p Left pleurex catheter placement and drainage CXR post procedure show almost complete resolution of left pleural effusion Unlikely left lung pneumonia Monitor Oxygen currently at baseline Follow up pleural fluid analysis Pulm recs appreciated (3) Metastatic breast cancer: Plan: Currently on Arimidex therapy and gets Q3 mo injections with heme/onc. Currently follows with Dr. Prakash (4) Atrial fibrillation with RVR: Plan: Currently on Cardizem drip Had flipped to sinus and back to Afib this AM Hep drip had been on hold for pleurex catheter placement Plan to resume later this afternoon. at least 6h post procedure Cardiology on board. Recs noted (5) Hyponatremia: (6) ANTONIO (acute kidney injury): Plan: Cr acutely bumped at > 5 with baseline of 0.6, BUN elevated at 77 compared to 14 one month ago Holding p.o. home Lasix, losartan, nifedipine Renally dose medications and avoid nephrotoxins Got some IVF Nephrology on board Monitor Urine output Encourage oral intake Check BMP in AM DVT ppx: - teds, scds, heparin gtt as above CODE: DNR/DNI Admission and Anticipated Discharge Date Admission Date: September 01, 2021 Subjective 86-year-old woman with DM type II, hypertension, diastolic heart failure, metastatic breast cancer to bone and lungs with right-sided pleural effusion with indwelling Pleurx catheter, hypercalcemia who presented with worsening shortness of breath for 1 week. Being managed for new left pleural effusion, acute on chronic respiratory failure with hypoxia, acute kidney injury, A. fib with RVR. Patient seen and examined. Patient had placement of left Pleurx catheter this morning by screen repairer crusher with drainage of pleural fluid Patient reports significant improvement in her shortness of breath, cough since procedure. Denies any cough, palpitations Reported diarrhea yesterday. Reports some anorexia. Denies nausea, vomiting, abdominal pain Denies fevers, chills Denies headache Review of Systems Review of Systems: All systems reviewed & are unremarkable except as noted in Subjective Physical Exam Constitutional: + well hydrated; no acute distress Eyes: PERRL, conjunctivae normal, anicteric sclerae ENMT: external ear and nose normal, oropharynx normal Respiratory: Normal respiration, On nasal cannula at 3l/min, diminished breath sounds in lung bases posteriorly, pleurx catheter in situ bilaterally Cardiovascular: Rate/Rhythm: + irregularly irregular S1 S2 Gastrointestinal (Abdomen): normal bowel sounds, soft, nontender, no hepatosplenomegaly Musculoskeletal: No pedal edema Neurologic: PERRL, EOMI, accommodation nl, no face palsy, no dysarthria Psychiatric: A+Ox3, euthymic affect Results & Data Results & Data ([facility]) Vital Signs (Past 12 Hours) Vital Signs Temp Pulse Pulse Pulse Resp BP Pulse Ox 09/02/21 11:41 114 H 131/73 09/02/21 11:13 114 H 122/75 09/02/21 11:04 137 H 114/71 09/02/21 10:56 131 H 22 126/67 09/02/21 10:55 37.0 C 130 H 26 H 116/66 91 09/02/21 08:00 91 09/02/21 07:44 36.8 C 92 H 32 H 167/81 H 88 L 09/02/21 06:09 81 25 H 91 09/02/21 03:49 81 09/02/21 03:26 36.6 C 84 24 140/76 93 Laboratory Results Abnormal lab results 09/01/21 09/02/21 09/02/21 Range/Units 20:42 05:55 05:59 RBC 3.29 L (4.2-5.4) M/uL Hgb 8.8 L (12.0-16.0) g/dL Hct 28.0 L (37-47) % MCHC 31.4 L (32-36) g/dL RDW Std Deviation 59.0 H (36.4-46.3) fL RDW Coeff of Ravin 18.8 H (11.5-14.5) % POC pH 7.34 L (7.35-7.45) POC pO2 76 L (80-95) mmHg Sodium (136-145) mmol/L Chloride (98-107) mmol/L Anion Gap (3-11) BUN (6-23) mg/dl Creatinine (0.6-1.2) mg/dl Glucose (70-99(Fasting)) mg/dl Hemoglobin A1c (4.5-5.6) % Uric Acid (2.6-7.2) mg/dl Calcium (8.5-10.1) mg/dl Magnesium (1.7-2.4) mg/dl Alkaline Phosphatase (34-104) U/L Troponin I High Sens 44.1 H (0-14) pg/ml Albumin (3.4-5.0) gm/dl Albumin/Globulin Ratio (0.9-2) Urine Osmolality (500-800) mOsm/kg U Random Total Protein (0-11.9) mg/dl Protein/Creatinin Ratio (0-0.2) Pleural pH (7.3-7.4) 09/02/21 09/02/21 09/02/21 Range/Units 05:59 05:59 05:59 RBC (4.2-5.4) M/uL Hgb (12.0-16.0) g/dL Hct (37-47) % MCHC (32-36) g/dL RDW Std Deviation (36.4-46.3) fL RDW Coeff of Ravin (11.5-14.5) % POC pH (7.35-7.45) POC pO2 (80-95) mmHg Sodium 126 L (136-145) mmol/L Chloride 87 L (98-107) mmol/L Anion Gap 16 H (3-11) BUN 82 H (6-23) mg/dl Creatinine 4.85 H* (0.6-1.2) mg/dl Glucose 104 H (70-99(Fasting)) mg/dl Hemoglobin A1c 7.5 H (4.5-5.6) % Uric Acid 10.0 H (2.6-7.2) mg/dl Calcium 8.0 L (8.5-10.1) mg/dl Magnesium 2.5 H (1.7-2.4) mg/dl Alkaline Phosphatase 110 H (34-104) U/L Troponin I High Sens (0-14) pg/ml Albumin 2.9 L (3.4-5.0) gm/dl Albumin/Globulin Ratio 0.8 L (0.9-2) Urine Osmolality (500-800) mOsm/kg U Random Total Protein (0-11.9) mg/dl Protein/Creatinin Ratio (0-0.2) Pleural pH (7.3-7.4) 09/02/21 09/02/21 09/02/21 Range/Units 07:40 07:40 08:45 RBC (4.2-5.4) M/uL Hgb (12.0-16.0) g/dL Hct (37-47) % MCHC (32-36) g/dL RDW Std Deviation (36.4-46.3) fL RDW Coeff of Ravin (11.5-14.5) % POC pH (7.35-7.45) POC pO2 (80-95) mmHg Sodium (136-145) mmol/L Chloride (98-107) mmol/L Anion Gap (3-11) BUN (6-23) mg/dl Creatinine (0.6-1.2) mg/dl Glucose (70-99(Fasting)) mg/dl Hemoglobin A1c (4.5-5.6) % Uric Acid (2.6-7.2) mg/dl Calcium (8.5-10.1) mg/dl Magnesium (1.7-2.4) mg/dl Alkaline Phosphatase (34-104) U/L Troponin I High Sens (0-14) pg/ml Albumin (3.4-5.0) gm/dl Albumin/Globulin Ratio (0.9-2) Urine Osmolality 306 L (500-800) mOsm/kg U Random Total Protein 263.4 H (0-11.9) mg/dl Protein/Creatinin Ratio 2.0 H (0-0.2) Pleural pH 7.23 L (7.3-7.4)
[2021-09-02] MEDS ORDERED: AMIODARONE 200 MG TAB PO ONE (14:40)
[2021-09-02 15:22] LABS: Lymphocytes, Fluid 5 %; Mono,Macrophage,Mesothelial 36 %; Neutrophils, Fluid 59 %
[2021-09-02] MEDS: AMIODARONE 200 MG TAB PO SCH (16:42)
[2021-09-02] MEDS ORDERED: [UNRECOGNIZED DRUG - REMARK] ONE (18:00)
[2021-09-02] MEDS: MIRTAZAPINE TAB 15 MG TAB PO SCH (20:49)
[2021-09-02] MEDS: ROSUVASTATIN CALCIUM 20 MG TAB PO SCH (21:05)
--- NOTE | 2021-09-02 22:59 | Electrocardiogram Report ---
Test Reason : Blood Pressure : / mmHG Vent. Rate : 135 BPM Atrial Rate : 131 BPM P-R Int : 000 ms QRS Dur : 084 ms QT Int : 298 ms P-R-T Axes : 000 -21 151 degrees QTc Int : 447 ms Atrial fibrillation with rapid ventricular response Inferior infarct , age undetermined Nonspecific T wave abnormality Abnormal ECG When compared with ECG of 01-SEP-2021 07:22, Inferior infarct is now Present Confirmed by Bereket Griffin ([id number]) on 09/02/2021 10:58:56 PM Referred By: REFERRED SELF Confirmed By:Bereket Griffin
[2021-09-03] MEDS: MULTIVITAMIN TAB PO SCH (07:24)
[2021-09-03] MEDS: ANASTROZOLE 1 MG TAB PO SCH (07:24)
[2021-09-03] MEDS: FLUoxetine HCL 20 MG CAP PO SCH (07:24)
[2021-09-03] MEDS: AMIODARONE 200 MG TAB PO SCH ×2 (07:24→17:16)
[2021-09-03 07:39] LABS: Hematocrit (blood only) 26.1 % (34.1-44.9); Hemoglobin 8.1 g/dl (12.0-16.0); Mean Corpuscular Volume 83.9 fL (80.0-100.0); Mean Platelet Volume 9.2 fL (9.4-12.3); Platelet Count 316 K/uL (130-400); RDW Coefficient of Variation 18.2 % (11.5-14.5); RDW Standard Deviation 55.2 fL (36.4-46.3); Red Blood Count 3.11 M/uL (3.93-5.22)
[2021-09-03 08:02] LABS: Albumin Globulin Ratio 0.9 (0.9-2); Albumin Level 2.8 gm/dl (3.4-5.0); BUN Creatinine Ratio 16.9 (10-20); Bilirubin,Total 0.4 mg/dl (0.2-1.0); Calcium 7.7 mg/dl (8.5-10.1); Creatinine Clr Calc Pharmacy 7.4 ml/min; Est GFR (Non-African American) 6.9 ml/min; Globulin 3.2 gm/dl (2.5-4.0); Magnesium 2.5 mg/dl (1.7-2.4); Phosphorus 8.2 mg/dl (2.5-4.9); Potassium 4.7 mmol/L (3.5-5.1)
--- NOTE | 2021-09-03 10:16 | Pulmonology Progress Note ---
Date of Service September 03, 2021 Assessment & Plan (1) Malignant pleural effusion: (2) Acute respiratory failure with hypoxia: (3) Metastatic breast cancer: Plan: Impression: 86-year-old female with history of metastatic breast cancer and known right malignant effusion with tunneled indwelling pleural catheter now with rapidly progressive left effusion. She is status post Pleurx catheter placement on the left 09/02/2021 with removal of 1.6 L of fluid Recommendations: 1. Left pleural effusion: Suspect related to malignancy. Discussed with nursing. We will drain today. Continue drainage on an as-needed basis based on patient's symptoms. Await pleural fluid cytology but expect this to be malignant. Would continue drainage as a symptom management/palliative care procedure at this point time 2. Hypoxemic respiratory failure: Suspect multifactorial. Continue oxygen titrated to keep saturations at or above 89% 3. CODE STATUS reviewed. The patient is DNR/DNI which is appropriate. 4. In the setting of widely metastatic breast cancer which appears to be progressive and acute renal failure, consideration of transition to a pure palliative measure may be appropriate. Defer to patient's primary admitting service. Patient can follow-up with Dr. العراقي in the outpatient setting. Pulmonary will sign off at this point time. Feel free to contact us with questions or concerns related to the left-sided pleural catheter. 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 If she remains in the hospital, please contact us and we will be happy to facilitate suture removal. Admission and Anticipated Discharge Date Admission Date: September 01, 2021 Subjective Patient seen and examined. EMR reviewed. Patient is sitting up in the chair. She appears slightly more tachypneic with increased work of breathing compared to yesterday. She is not coughing or expectorating phlegm. She feels that she is more congested in her chest. She is not yet had her Pleurx catheters drained today. She has minimal tenderness at the site of the Pleurx insertion. Review of Systems Review of Systems: All systems reviewed & are unremarkable except as noted in Subjective Physical Exam Constitutional: + obese and + frail appearing Neck: trachea midline, no thyromegaly Respiratory: Auscultation: + diminished lung sounds and + crackles Cardiovascular: RRR, no murmur, no edema Gastrointestinal (Abdomen): normal bowel sounds, soft, nontender, no hepatosplenomegaly Musculoskeletal: Extremities: extremities normal to inspection Skin: no rashes, warm and dry Lymphatic: no cervical lymphadenopathy Results & Data Results & Data ([facility]) Vital Signs (Past 12 Hours) Vital Signs Temp Pulse Pulse Resp BP Pulse Ox Pulse Ox 09/03/21 06:48 36.6 C 82 18 130/65 91 09/03/21 02:55 36.6 C 78 18 128/62 92 09/03/21 00:00 93 09/02/21 23:06 70 09/02/21 22:54 36.7 C 78 18 129/63 92 Laboratory Results 09/03/21 06:48 09/03/21 06:48 Pleural fluid cytology pending. Pleural fluid studies: Cell count differential: 59% neutrophils, 5% lymphocytes, 36% mesothelial cells Pleural pH 7.23 Pleural LDH 235 Pleural glucose 108 Pleural fluid cultures pending. Gram stain showed rare white blood cells with no organisms. Diagnostic Findings Post procedure chest x-ray demonstrated the pleural catheter to be in good position with near complete resolution of the left-sided effusion. Increasing right-sided pleural fluid was noted. PG Care Time/CCT Total # of Minutes Spent Total Time Spent with Patient: Total time spent is greater than 50% in coordination of care (as documented) at patient's floor/unit and/or counseling patient: Coding Level of Care Code 13192 Subseq Hosp Care Lvl 2 Diagnoses Malignant pleural effusion J91.0 Acute respiratory failure with hypoxia J96.01 Metastatic breast cancer C50.919
--- NOTE | 2021-09-03 12:02 | Nephrology Progress Note ---
Date of Service September 03, 2021 Assessment & Plan (1) ANTONIO (acute kidney injury): Plan: Bert Ischemic ATN/ - Her renal function have declined as expected ---> ATN. -UOP continues to be in the oligoanuric range, -Sodium marginally improved -80 mg IV Lasix stat, reassess in a.m. regarding further dose. - Input and output - Continue holding CARLOS ALBERTO at the moment. - She has moderate hyponatremia, expect this to improve as her fluid status improves. - She had a h/o metastatic ,Renal Ultrasound scan rules out obstruction. I spoke to son, explaining the various scenario's, if a situation for dialysis arises, he would NOT want it and opt for conservative measures. (2) Atrial fibrillation with RVR: Plan: Controlled now, Cardiology on board. (3) Left lower lobe pneumonia: (4) Metastatic breast cancer: (5) Hx of multiple pulmonary nodules: (6) Bone metastases: Admission and Anticipated Discharge Date Admission Date: September 01, 2021 Subjective . Lying comfortably on bed , no shortness of breath , UOP oligoanuric range. Review of Systems Review of Systems: Constitutional: No fever, sweats or chills Respiratory: No cough, sputum,no dyspnea at rest Cardiovascular: No chest pain, tightness or palpitations Abdomen: no pain, vomiting, constipation , nausea or diarrhea Musculoskeletal: No joint pain, calf pain, swelling - gets trace ankle swelling but currently not swollen Neurologic: + generalized weakness, no numbness/tingling, or balance problems Psychiatric: No anxiety or depression Skin: No rash or itch Physical Exam Physical Exam: General: Comfortable, alert, no apparent distress. Head: Normocephalic, atraumatic ENT: PERRL, EOMI, no pharyngeal exudate, mucous membranes dry Chest: + pleurex catheter on R posterior chest wall, no surrounding erythema, d iminished breath sounds to auscultation at bases bilaterally, on 3 L via NC Cardiac: irregularly irregular , no JVD. Results & Data ([facility]) Vital Signs (Past 12 Hours) Vital Signs Temp Pulse Resp BP Pulse Ox Pulse Ox 09/03/21 11:09 36.7 C 78 22 135/77 95 09/03/21 06:48 36.6 C 82 18 130/65 91 09/03/21 02:55 36.6 C 78 18 128/62 92 09/03/21 00:00 93 Laboratory Results 09/03/21 06:48 09/03/21 06:48
[2021-09-03] MEDS ORDERED: FUROSEMIDE 40 MG/4 ML VIAL IV ONE (12:36)
--- NOTE | 2021-09-03 14:38 | Cardiology Progress Note ---
Date of Service September 03, 2021 Assessment & Plan (1) Malignant pleural effusion: (2) Atrial fibrillation with RVR: (3) ANTONIO (acute kidney injury): Plan: (1) Malignant pleural effusion: -Pulmonary input noted and appreciated. -1.6 L pleural fluid drained 09/02/2021. -Right-sided pleural catheter placed [facility] 08/03/2021 -Left pleural catheter placed [facility] 09/02/2021 (2) Atrial fibrillation with RVR: -Episode of recurrent atrial fibrillation took place in the morning 09/02/2021, placed back on IV diltiazem, with subsequent conversion to sinus rhythm 09/02/2021 13: 14. -Amiodarone initiated for rhythm control strategy. -Although amiodarone not ideal given patient's pulmonary metastatic disease, anticipate that recurrent atrial fibrillation would not be well-tolerated, and she is frail, and considered a poor candidate for anticoagulation. -Repeat EKG 09/04/2021, for reassessment especially given coadministration of amiodarone and fluoxetine. (3) ANTONIO (acute kidney injury): -creatinine 5.14 on presentation, 5.26 today, 09/02/2021 IVF on hold. Nephrology input noted and appreciated. Admission and Anticipated Discharge Date Admission Date: September 01, 2021 Subjective Patient seen in cardiology follow-up of atrial fibrillation, left pleural effusion. Patient comfortable. She was being visited by her brother and [id number]. Telemetry reveals sinus rhythm. Physical Exam Constitutional: + frail appearing; no acute distress Respiratory: Auscultation: + diminished lung sounds (Decreased breath sounds throughout two thirds of the left lung field, no br); no rales and no wheezes Cardiovascular: Rate/Rhythm: regular rate, + tachycardic and + irregularly irregular Heart Sounds: no murmur Vessels: no JVD Extremities: no edema Gastrointestinal (Abdomen): normal bowel sounds, soft, nontender, no hepatosplenomegaly Neurologic: PERRL, EOMI, accommodation nl, no face palsy, no dysarthria Results & Data ([facility]) Vital Signs (Past 12 Hours) Vital Signs Temp Pulse Resp BP Pulse Ox 09/03/21 11:09 36.7 C 78 22 135/77 95 09/03/21 06:48 36.6 C 82 18 130/65 91 09/03/21 02:55 36.6 C 78 18 128/62 92 Laboratory Results Cardiac Enzymes 09/03/21 Range/Units 06:48 AST 26 (13-39) U/L CBC 09/03/21 Range/Units 06:48 WBC 7.10 (4.8-10.8) K/ul RBC 3.11 L (3.93-5.22) M/uL Hgb 8.1 L (12.0-16.0) g/dl Hct 26.1 L (34.1-44.9) % Plt Count 316 (130-400) K/uL Comprehensive Metabolic Panel 09/03/21 Range/Units 06:48 Sodium 127 L (136-145) mmol/L Potassium 4.7 (3.5-5.1) mmol/L Chloride 88 L (98-107) mmol/L Carbon Dioxide 23 (21-32) mmol/L BUN 89 H (6-23) mg/dl Creatinine 5.26 H* D (0.6-1.2) mg/dl Glucose 66 L (70-99(Fasting)) mg/dl Calcium 7.7 L (8.5-10.1) mg/dl AST 26 (13-39) U/L ALT 16 (7-52) U/L Alkaline Phosphatase 99 (34-104) U/L Total Protein 6.0 (6.0-8.3) gm/dl Albumin 2.8 L (3.4-5.0) gm/dl Intake and Output 09/02/21 09/03/21 09/03/21 22:59 06:59 14:59 Intake Total 156.417 / 356.417 100 / 356.417 Output Total 100 / 300 125 / 300 500 / 500 Balance 56.417 / 56.417 -25 / 56.417 -500 / -500 Intake: IV 36.417 / 136.417 dilTIAZem HCL 125 mg In 36.417 / 36.417 Dextrose 5% 100 ml @ 5 MG/HR 5 mls/hr IV .Q24H [facility] Rx#: [id number] Oral 120 / 220 100 / 220 Output: Urine Amount (Catheter) 100 / 300 125 / 300 Bellamy/Indwelling 100 / 300 125 / 300 Drain Output 500 / 500 Left Chest 400 / 400 Right Chest 100 / 100 Other: Weight 75.2 kg Weight Measurement Method Built in [facility]
[2021-09-03] MEDS ORDERED: HEPARIN SOD 5,000 UNIT/0.5 ML VIAL SQ SCH (14:50)
--- NOTE | 2021-09-03 15:14 | Hospitalist Progress Note ---
Date of Service September 03, 2021 Assessment & Plan (1) Malignant pleural effusion: (2) Acute respiratory failure with hypoxia: Plan: S/p Left pleurex catheter placement and drainage on 09/02/21 with drainage of 1.6L CXR post procedure show almost complete resolution of left pleural effusion Unlikely left lung pneumonia Patient has a right pleurx catheter placed at [facility] 08/03/21 Per RN, 400cc was drained from left pleurx and 100cc from right pleurx today Pulm recs noted Continue oxygen supplementation and wean as tolerated (3) Metastatic breast cancer: Plan: Currently on Arimidex therapy and gets Q3 mo injections with heme/onc. Currently follows with Dr. Prakash (4) Atrial fibrillation with RVR: Plan: Was on Cardizem drip yesterday now off Has converted to sinus rhythm Vocal Music Instructor recommendations noted Started on amiodarone therapy by Cardiology for rhythm control Patient is a poor candidate for anticoagulation Check EKG tomorrow (5) Hyponatremia: (6) ANTONIO (acute kidney injury): Plan: Cr acutely bumped at > 5 with baseline of 0.6, BUN elevated at 77 compared to 14 one month ago Holding p.o. home losartan Renally dose medications and avoid nephrotoxins Got some IVF on admission Discussed with line and frame poler. He recommends lasix challenge. Lasix IV 80 given. Will monitor urine output DVT ppx: Hep sq CODE: DNR/DNI Given metastatic disease, acute kidney injury, Palliative consulted for ongoing [facility] Admission and Anticipated Discharge Date Admission Date: September 01, 2021 Subjective 86-year-old woman with DM type II, hypertension, diastolic heart failure, metastatic breast cancer to bone and lungs with right-sided pleural effusion with indwelling Pleurx catheter, hypercalcemia who presented with worsening shortness of breath for 1 week. Being managed for new left pleural effusion, acute on chronic respiratory failure with hypoxia, acute kidney injury, A. fib with RVR. Patient had placement of left Pleurx catheter on 09/02/21 Patient seen and examined. Patient reports significant improvement in her shortness of breath since procedure. Reports generalized weakness Denies any cough, palpitations Denies nausea, vomiting, abdominal pain. Has some anorexia Denies fevers, chills Review of Systems Review of Systems: All systems reviewed & are unremarkable except as noted in Subjective Physical Exam Constitutional: + well hydrated; no acute distress Eyes: PERRL, conjunctivae normal, anicteric sclerae ENMT: external ear and nose normal, oropharynx normal Respiratory: normal respiratory effort; no respiratory distress Diminished breath sounds lung bases Pleurx catheter on both sides Cardiovascular: Rate/Rhythm: regular rate and regular rhythm S1 S2 Gastrointestinal (Abdomen): normal bowel sounds, soft, nontender, no hepatosplenomegaly Musculoskeletal: No pedal edema Neurologic: PERRL, EOMI, accommodation nl, no face palsy, no dysarthria Psychiatric: A+Ox3, euthymic affect Results & Data Results & Data ([facility]) Vital Signs (Past 12 Hours) Vital Signs Temp Pulse Resp BP Pulse Ox 09/03/21 11:09 36.7 C 78 22 135/77 95 09/03/21 06:48 36.6 C 82 18 130/65 91 Laboratory Results Abnormal lab results 09/03/21 09/03/21 Range/Units 06:48 06:48 RBC 3.11 L (3.93-5.22) M/uL Hgb 8.1 L (12.0-16.0) g/dl Hct 26.1 L (34.1-44.9) % MCHC 31.0 L (32.0-36.0) g/dL RDW Std Deviation 55.2 H (36.4-46.3) fL RDW Coeff of Ravin 18.2 H (11.5-14.5) % MPV 9.2 L (9.4-12.3) fL Sodium 127 L (136-145) mmol/L Chloride 88 L (98-107) mmol/L Anion Gap 16 H (3-11) BUN 89 H (6-23) mg/dl Creatinine 5.26 H* D (0.6-1.2) mg/dl Glucose 66 L (70-99(Fasting)) mg/dl Calcium 7.7 L (8.5-10.1) mg/dl Phosphorus 8.2 H (2.5-4.9) mg/dl Magnesium 2.5 H (1.7-2.4) mg/dl Albumin 2.8 L (3.4-5.0) gm/dl
--- NOTE | 2021-09-03 16:43 | Palliative Care Consultation ---
Date of Consultation September 03, 2021 Assessment & Plan (1) Dyspnea: Improved with thoracentesis. She has prn oxycodone if needed for dyspnea not relieved with tap or oxygen. (2) Palliative care encounter: I met with Mrs. Medel, her son, sister and grandson, Ricci, at bedside. She is very open about her illness and tells me that she knows that she is at the end stage of her life. I asked her if she has fears or worries and she tells me that she does not. She has strong giorgio and a very supportive family. I asked her what she would like her remaining days to look like. She told me that she would prefer that there be as few days as possible. She lives at [facility] with her sister and is very happy there. Her wish would be able to return there. She currently has [facility] home care and we talked about hospice care and what would be involved with that. Her son and she are both interested in having hospice support which may allow her to remain at [facility]. Her son tells me that they would likely need additional support and they have the resources to hire additional caregivers. Mrs. Medel specifically told me that she does not want any further cancer treatment or testing. I did discuss a bmp in the morning with her son to monitor renal function with lasix dose today and he is agreeable to that. Family asked about prognosis which is likely only weeks at this time. They support her decision to focus on symptom management. Discussed with RN and Dr. Esteban. (3) Malignant pleural effusion: (4) ANTONIO (acute kidney injury): (5) Atrial fibrillation with RVR: (6) Metastatic breast cancer: History of Present Illness Reason for Consultation: goals of care Requesting Physician: Dr. 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 She has had ongoing right pleural effusion with pleurx catheter and is followed by [facility] home care. She presented with shortness of breath and was found to have left pleural effusion as well. She had pleuracentesis with left sided pleurx placed yesterday. She reports that her breathing has improved. She was also found to have new onset afib with RVR and ANTONIO with GFR less than 10. She is being followed by cardiology and nephrology. She has been started on amiodarone and received IV bolus of furosemide today. Per RN she has had 650 cc urine output on day shift today. She is a delightful lady who denies pain or dyspnea at this time. She has had nausea and anorexia even prior to admission. Allergies Allergy/AdvReac Type Severity Reaction Status Date / Time Beta-Blockers Allergy Severe FACIAL/MOUTH Verified 06/20/21 22:41 (Beta-Adrenergic Bloc SWELLING Home Medications Medication Instructions Recorded Confirmed Type felodipine 10 mg tablet,extended 10 mg PO DAILY 02/05/20 09/01/21 History release 24 hr fluoxetine 20 mg capsule 20 mg PO DAILY 02/05/20 09/01/21 History furosemide 40 mg tablet 40 mg PO DAILY 02/05/20 09/01/21 History losartan 100 mg tablet 100 mg PO DAILY 02/05/20 09/01/21 History anastrozole 1 mg tablet (Arimidex) 1 mg PO DAILY 03/18/20 09/01/21 History cholecalciferol (vitamin D3) 25 25 mcg PO DAILY 03/18/20 09/01/21 History mcg (1,000 unit) capsule acetaminophen 500 mg tablet 500 mg PO Q6H PRN tab 09/16/20 09/01/21 History (Tylenol Extra Strength) ascorbate calcium (vitamin C) 500 500 mg PO DAILY 09/16/20 09/01/21 History mg tablet docusate sodium 100 mg capsule 100 mg PO BID 09/16/20 09/01/21 History (Colace) rosuvastatin 40 mg tablet 40 mg PO HS 09/16/20 09/01/21 History sennosides 8.6 mg tablet (Senokot) 8.6 mg PO BID 09/16/20 09/01/21 History vit no.133-ferrous 1 tab PO DAILY 06/20/21 09/01/21 History fumarate 28 mg-folic acid 800 mcg tablet () vitamin E 268 mg (400 unit) capsule 400 unit PO DAILY 06/20/21 09/01/21 History mirtazapine 15 mg tablet 15 mg PO HS 09/01/21 09/01/21 History oxycodone 5 mg tablet 5 mg PO Q8H PRN 09/01/21 09/01/21 History Patient History Medical History Bone metastases History of left breast cancer History of Mohs micrographic surgery for skin cancer Hx of basal cell carcinoma Hx of essential hypertension Hx of multiple pulmonary nodules Surgical History History of total bilateral knee replacement Hx of cholecystectomy Hx of total hysterectomy Family History Sister Heart disease Brother Heart disease Mother Cancer, Onset Age: 56 opened for surgery, found to be widespread metastasis Father Lung disease Son Hypertension Social History Smoking Status: Never smoker Second Hand Exposure: No; Hx Alcohol Use: No Hx Substance Use: No Preferred Language: Belizean Communication Ability: Effective Visual Impairment: Limited Hearing Ability: Hard of Hearing Advice Nurse Required: No Beliefs That Will Affect Care: None marital status: Unknown Current Living Situation: Alone Current Living Situation Comment: [employer] [place] current occupational status: 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 How many Children do You have: 1 Feels Safe at Home: Yes Safety Concerns: Feels Safe At This Time Childhood Exposure to Second-Hand Smoke: Yes caffeine: Yes (coffee 1 cup in am) during the past year weight has: decreased > 10 lbs Dental Care, Regularly: Yes Physical Activity Frequency: Does not Exercise Seatbelt Use: always Sunscreen Use: Yes Assistive Devices: Walker Review of Systems Review of Systems: ESAS Pain 0/3 Dyspnea 0/3 Anxiety 0/3 Fatigue 1/3 Nausea 2/3 Drowsiness 0/3 PPS 50 Physical Exam Constitutional: no acute distress ENMT: Mouth: oral mucous membranes not dry Respiratory: normal respiratory effort; no labored breathing b/l tunneled catheters Cardiovascular: Rate/Rhythm: + irregularly irregular Musculoskeletal: Extremities: extremities normal to inspection Neurologic: moves all extremities Speech / Cognition: normal cognition Results & Data ([facility]) Vital Signs (Past 12 Hours) Vital Signs Temp Pulse Pulse Resp BP Pulse Ox 09/03/21 15:43 98.1 F 75 20 149/76 H 96 09/03/21 11:09 98.1 F 78 22 135/77 95 09/03/21 06:48 97.9 F 82 18 130/65 91 PG Care Time/CCT Total # of Minutes Spent Total Time Spent: 83 Total Time Spent with Patient: Total time spent is greater than 50% in coordination of care (as documented) at patient's floor/unit and/or counseling patient:goals of care, symptom management, hospice, prognosis, patient and family education and support, coordination of care. Coding Level of Care Code 70119 Initial Inpt Care Lvl 3 Diagnoses Dyspnea R06.00 Malignant pleural effusion J91.0 ANTONIO (acute kidney injury) N17.9 Atrial fibrillation with RVR I48.91 Metastatic breast cancer C50.919 Palliative care encounter Z51.5
[2021-09-03] MEDS: ROSUVASTATIN CALCIUM 20 MG TAB PO SCH (21:18)
[2021-09-03] MEDS: MIRTAZAPINE TAB 15 MG TAB PO SCH (21:18)
[2021-09-03] MEDS ORDERED: dilTIAZem HCl 5 MG/ML 5 ML VIAL IV STA (23:00)
[2021-09-04] MEDS ORDERED: ALBUMIN 25% 12.5 GM/50 ML VIAL IV ONE (04:08)
[2021-09-04] MEDS ORDERED: dilTIAZem HCl 5 MG/ML 5 ML VIAL IV STA (04:08)
[2021-09-04] MEDS ORDERED: AMIODARONE 200 MG TAB PO SCH (04:10)
[2021-09-04 08:05] LABS: Creatinine Clr Calc Pharmacy 6.9 ml/min; Est GFR (African American) 7.4 ml/min; Est GFR (Non-African American) 6.4 ml/min
[2021-09-04 08:06] LABS: BUN Creatinine Ratio 17.7 (10-20); Potassium 4.8 mmol/L (3.5-5.1)
[2021-09-04] MEDS: MULTIVITAMIN TAB PO SCH (09:30)
[2021-09-04] MEDS: FLUoxetine HCL 20 MG CAP PO SCH (09:30)
[2021-09-04] MEDS ORDERED: ALBUMIN 5% 250 ML IV ONE (12:00)
--- NOTE | 2021-09-04 13:13 | Hospitalist Progress Note ---
Date of Service September 04, 2021 Assessment & Plan (1) Malignant pleural effusion: (2) Acute respiratory failure with hypoxia: Plan: S/p Left pleurex catheter placement and drainage on 09/02/21 with drainage of 1.6L CXR post procedure show almost complete resolution of left pleural effusion Unlikely left lung pneumonia Patient has a right pleurx catheter placed at [facility] 08/03/21 Per RN, 400cc was drained from left pleurx and 100cc from right pleurx yesterday Pulm recs noted Continue oxygen supplementation and wean as tolerated Ongoing GOC with Patient, family and palliative care Patient will like to eventually transition to hospice care on discharge (3) Metastatic breast cancer: Plan: Currently on Arimidex therapy and gets Q3 mo injections with heme/onc. Currently follows with Dr. Prakash (4) Atrial fibrillation with RVR: Plan: Off cardizem drip Rn Cardiac Cath recommendations noted Can continue amiodarone on hospice Patient is a poor candidate for anticoagulation (5) Hyponatremia: (6) ROCHELLE (acute kidney injury): Plan: Cr acutely bumped at > 5 with baseline of 0.6, BUN elevated at 77 compared to 14 one month ago Holding p.o. home losartan Renally dose medications and avoid nephrotoxins Got some IVF on admission Rochelle likely ATN. Discussed with education administrator. Recommends giving albumin today If patient goes on hospice, nephrology recommends can dc on torsemide 40mg if patient wants to continue diuretics DVT ppx: Hep sq CODE: DNR/DNI Ongoing [facility] Admission and Anticipated Discharge Date Admission Date: September 01, 2021 Subjective 86-year-old woman with DM type II, hypertension, diastolic heart failure, metastatic breast cancer to bone and lungs with right-sided pleural effusion with indwelling Pleurx catheter, hypercalcemia who presented with worsening shortness of breath for 1 week. Being managed for new left pleural effusion, acute on chronic respiratory failure with hypoxia, acute kidney injury, A. fib with RVR. Patient had placement of left Pleurx catheter on 09/02/21 Patient seen and examined. Patient reports generalized weakness Denies any cough, palpitations Reports anorexia and nausea Denies vomiting, abdominal pain. Denies fevers, chills Physical Exam Constitutional: + well hydrated; no acute distress Eyes: PERRL, conjunctivae normal, anicteric sclerae ENMT: external ear and nose normal, oropharynx normal Respiratory: normal respiratory effort; no respiratory distress Diminished breath sounds. Pleurx cath b/l Cardiovascular: Rate/Rhythm: regular rate and regular rhythm S1 S2 Gastrointestinal (Abdomen): normal bowel sounds, soft, nontender, no hepatosplenomegaly Neurologic: PERRL, EOMI, accommodation nl, no face palsy, no dysarthria Psychiatric: A+Ox3, euthymic affect Results & Data Results & Data ([facility]) Vital Signs (Past 12 Hours) Vital Signs Temp Pulse Pulse Resp BP Pulse Ox 09/04/21 11:28 36.8 C 110 H 18 105/58 L 93 09/04/21 07:35 36.7 C 104 H 18 108/73 92 09/04/21 02:47 36.7 C 111 H 20 119/69 96 Laboratory Results Abnormal lab results 09/04/21 Range/Units 06:58 Sodium 128 L (136-145) mmol/L Chloride 87 L (98-107) mmol/L Carbon Dioxide 20 L (21-32) mmol/L Anion Gap 21 H (3-11) BUN 99 H (6-23) mg/dl Creatinine 5.58 H* D (0.6-1.2) mg/dl Glucose 54 L (70-99(Fasting)) mg/dl Calcium 8.0 L (8.5-10.1) mg/dl
[2021-09-04] MEDS ORDERED: LORazepam 0.5 MG TAB PO PRN (13:45)
[2021-09-04] MEDS ORDERED: ONDANSETRON INJ 2 MG/ML 2 ML VIAL IV PRN (13:45)
[2021-09-04] MEDS ORDERED: GLYCOPYRROLATE 0.2 MG/ML VIAL IV PRN (13:45)
[2021-09-04] MEDS ORDERED: LORazepam 0.5 MG in SYRINGE 0.25 ML IV PRN (13:45)
--- NOTE | 2021-09-04 14:09 | Cardiology Progress Note ---
Date of Service September 04, 2021 Assessment & Plan (1) Malignant pleural effusion: (2) Atrial fibrillation with RVR: (3) ANTONIO (acute kidney injury): Plan: (1) Malignant pleural effusion: -Pulmonary input noted and appreciated. -1.6 L pleural fluid drained 09/02/2021. -Right-sided pleural catheter placed [facility] 08/03/2021 -Left pleural catheter placed [facility] 09/02/2021 -Although cytology of pleural fluid this admission negative, history still suggest that this is a malignant pleural effusion. -Pt to follow up with [facility] cardiology , Dr العراقي (2) Atrial fibrillation with RVR: -Atrial fibrillation first observed 09/01/2021 at time of presentation to the emergency room, converted to sinus rhythm with administration of IV diltiazem Second episode of atrial fibrillation took place in the morning 09/02/2021, placed back on IV diltiazem, with subsequent conversion to sinus rhythm 09/02/2021 13: 14. Third episode of atrial fibrillation 09/03/2021, 21: 58 (3) ANTONIO (acute kidney injury): -creatinine 5.14 on presentation, as of 09/04/2021, 5.58 mg/dL minimal urinary output noted Nephrology input noted and appreciated. -Patient has been placed on oral amiodarone 200 mg twice daily 09/02/2021. -Patient/family considering transition to hospice care. -At present it appears all of her oral medications have been discontinued. -If patient would like to take oral medications for palliative purposes to avoid sensation of elevated heart rate (check she has no symptoms of her atrial fibrillation at present) "resume amiodarone 20 mg twice daily, and consider adding metoprolol 25 mg twice daily. Admission and Anticipated Discharge Date Admission Date: September 01, 2021 Subjective Patient seen and cardiology follow-up. She states that she "feels awful ". Notes generalized aches and pains. No respiratory difficulty at present. At time of assessment 09/03/2021 she is in sinus rhythm, but reverted back to atrial fibrillation evening of 09/03/2021 at 2158. Physical Exam Constitutional: + frail appearing; no acute distress Respiratory: Auscultation: + diminished lung sounds (Decreased breath sounds throughout two thirds of the left lung field, no br); no rales and no wheezes Cardiovascular: Rate/Rhythm: regular rate, + tachycardic and + irregularly irregular Heart Sounds: no murmur Vessels: no JVD Extremities: no edema Gastrointestinal (Abdomen): normal bowel sounds, soft, nontender, no hepatosplenomegaly Neurologic: PERRL, EOMI, accommodation nl, no face palsy, no dysarthria Results & Data ([facility]) Vital Signs (Past 12 Hours) Vital Signs Temp Pulse Pulse Resp BP Pulse Ox 09/04/21 11:28 36.8 C 110 H 18 105/58 L 93 09/04/21 07:35 36.7 C 104 H 18 108/73 92 09/04/21 02:47 36.7 C 111 H 20 119/69 96 Laboratory Results Comprehensive Metabolic Panel 09/04/21 Range/Units 06:58 Sodium 128 L (136-145) mmol/L Potassium 4.8 (3.5-5.1) mmol/L Chloride 87 L (98-107) mmol/L Carbon Dioxide 20 L (21-32) mmol/L BUN 99 H (6-23) mg/dl Creatinine 5.58 H* D (0.6-1.2) mg/dl Glucose 54 L (70-99(Fasting)) mg/dl Calcium 8.0 L (8.5-10.1) mg/dl Intake and Output 09/03/21 09/04/21 09/04/21 22:59 06:59 14:59 Intake Total 100 / 100 123 / 123 Output Total 125 / 825 50 / 825 Balance -25 / -725 -50 / -725 123 / 123 Intake: IV 123 / 123 Albumin 25% 12.5 gm In 50 ml @ 50 / 50 50 mls/hr IV ONE ONE Rx#: [id number] Albumin 5% 250 ml @ 50 mls/hr 73 / 73 IV ONE ONE Rx#:[id number] Oral 100 / 100 Output: Urine Amount (Catheter) 125 / 325 50 / 325 Bellamy/Indwelling 125 / 325 50 / 325 Other: Other Intake Source sips Weight 72.4 kg Weight Measurement Method Built in [facility]
--- NOTE | 2021-09-04 14:39 | Nephrology Progress Note ---
Date of Service September 04, 2021 Assessment & Plan (1) ANTONIO (acute kidney injury): Plan: - Ischemic ATN/ - Her renal function have declined as expected ---> ATN. -UOP continues to be in the oligoanuric range, - Did respond to lasix challenge. - As per Dr Davis , she is comfort care. - OK for 5% albumin and torsemide 40 mg daily to keep her comfortable Nephrology will sign off. . (2) Atrial fibrillation with RVR: Plan: Controlled now, Cardiology on board. (3) Left lower lobe pneumonia: (4) Metastatic breast cancer: (5) Hx of multiple pulmonary nodules: (6) Bone metastases: Admission and Anticipated Discharge Date Admission Date: September 01, 2021 Subjective Somlonant, but comfortable , Not in distress.. Review of Systems Review of Systems: Constitutional: Comfortable, no distress. Respiratory: No cough, sputum,no dyspnea at rest Cardiovascular: No chest pain, tightness or palpitations Abdomen: no pain, vomiting, constipation , nausea or diarrhea Musculoskeletal: No joint pain, calf pain, swelling - gets trace ankle swelling but currently not swollen Neurologic: + generalized weakness, no numbness/tingling, or balance problems Psychiatric: No anxiety or depression Skin: No rash or itch Physical Exam Physical Exam: General: Comfortable, alert, no apparent distress. Head: Normocephalic, atraumatic ENT: PERRL, EOMI, no pharyngeal exudate, mucous membranes dry Chest: + pleurex catheter on R posterior chest wall, no surrounding erythema, diminished breath sounds to auscultation at bases bilaterally, on 3 L via NC Cardiac: irregularly irregular , no JVD. Results & Data ([facility]) Vital Signs (Past 12 Hours) Vital Signs Temp Pulse Pulse Resp BP Pulse Ox 09/04/21 11:28 36.8 C 110 H 18 105/58 L 93 09/04/21 07:35 36.7 C 104 H 18 108/73 92 09/04/21 02:47 36.7 C 111 H 20 119/69 96 Laboratory Results 09/03/21 06:48 09/04/21 06:58
[2021-09-04 14:52] LABS: Uric Acid, Random Urine 59 mg/dL
--- NOTE | 2021-09-04 23:02 | Electrocardiogram Report ---
Test Reason : Blood Pressure : / mmHG Vent. Rate : 119 BPM Atrial Rate : 101 BPM P-R Int : 000 ms QRS Dur : 088 ms QT Int : 272 ms P-R-T Axes : 000 -03 104 degrees QTc Int : 382 ms Atrial fibrillation with rapid ventricular response Anterior infarct , age undetermined Abnormal ECG When compared with ECG of 02-SEP-2021 09:51, Nonspecific T wave abnormality no longer evident in Inferior leads Nonspecific T wave abnormality, improved in Lateral leads Confirmed by Bereket Griffin ([id number]) on 09/04/2021 11:01:58 PM Referred By: REFERRED SELF Confirmed By:Bereket Griffin
--- NOTE | 2021-09-05 15:04 | Hospitalist Progress Note ---
Date of Service September 05, 2021 Assessment & Plan (1) Malignant pleural effusion: (2) Acute respiratory failure with hypoxia: Plan: S/p Left pleurex catheter placement and drainage on 09/02/21 with drainage of 1.6L CXR post procedure show almost complete resolution of left pleural effusion Unlikely left lung pneumonia Patient has a right pleurx catheter placed at [facility] 08/03/21 Pulm recs noted Continue oxygen supplementation Patient and family decided to transition to Comfort measures only on 09/04/21 and to stop all medications Can continue palliative drainage of malignant effusion prn for comfort (3) Metastatic breast cancer: Plan: Was on Arimidex therapy and gets Q3 mo injections with heme/onc. Now on comfort measures only (4) Atrial fibrillation with RVR: Plan: Patient does now want any meds other than comfort (5) Hyponatremia: (6) ANTONIO (acute kidney injury): Plan: Cr acutely bumped at > 5 with baseline of 0.6, BUN elevated at 77 compared to 14 one month ago Was evaluated by Nephrology Currently on [facility] [facility] working on SNF for placement+hospice Admission and Anticipated Discharge Date Admission Date: September 01, 2021 Subjective 86-year-old woman with DM type II, hypertension, diastolic heart failure, metastatic breast cancer to bone and lungs with right-sided pleural effusion with indwelling Pleurx catheter, hypercalcemia who presented with worsening shortness of breath for 1 week. Being managed for new left pleural effusion, acute on chronic respiratory failure with hypoxia, acute kidney injury, A. fib with RVR. Patient had placement of left Pleurx catheter on 09/02/21. Already had a right pleurx catheter Patient decided to transition to comfort measures only Patient seen and examined. Son, brother and sister in law in the room Patient reports generalized weakness Denies any chest pain, shortness of breath at rest, cough, palpitations Reports anorexia and nausea Denies vomiting, abdominal pain. Denies fevers, chills Physical Exam Constitutional: + ill appearing (Chronic) and + well hydrated; no acute distress Eyes: PERRL, conjunctivae normal, anicteric sclerae ENMT: external ear and nose normal, oropharynx normal Respiratory: normal respiratory effort; no respiratory distress Diminished breath sounds Cardiovascular: Rate/Rhythm: + tachycardic and + irregularly irregular S1 S2 Gastrointestinal (Abdomen): normal bowel sounds, soft, nontender, no hepatosplenomegaly Musculoskeletal: No pedal edema Neurologic: PERRL, EOMI, accommodation nl, no face palsy, no dysarthria Psychiatric: A+Ox3, euthymic affect Genitourinary: Bellamy in situ Results & Data Results & Data ([facility]) Vital Signs (Past 12 Hours) Vital Signs Temp Pulse Resp BP Pulse Ox 09/05/21 07:14 36.4 C L 132 H 12 106/79 94
--- NOTE | 2021-09-06 13:36 | Hospitalist Progress Note ---
Date of Service September 06, 2021 Assessment & Plan (1) Malignant pleural effusion: (2) Acute respiratory failure with hypoxia: Plan: S/p Left pleurex catheter placement and drainage on 09/02/21 with drainage of 1.6L CXR post procedure show almost complete resolution of left pleural effusion Unlikely left lung pneumonia Patient has a right pleurx catheter placed at [facility] 08/03/21 Pulm recs noted Continue oxygen supplementation Patient and family decided to transition to Comfort measures only on 09/04/21 and to stop all medications Can continue palliative drainage of malignant effusion prn for comfort (3) Metastatic breast cancer: Plan: Was on Arimidex therapy and gets Q3 mo injections with heme/onc. Now on comfort measures only (4) Atrial fibrillation with RVR: Plan: Patient does now want any meds other than comfort (5) Hyponatremia: (6) ANTONIO (acute kidney injury): Plan: Cr acutely bumped at > 5 with baseline of 0.6, BUN elevated at 77 compared to 14 one month ago Was evaluated by Nephrology Currently on [employer] working on SNF for placement+hospice Admission and Anticipated Discharge Date Admission Date: September 01, 2021 Subjective 86-year-old woman with DM type II, hypertension, diastolic heart failure, metastatic breast cancer to bone and lungs with right-sided pleural effusion with indwelling Pleurx catheter, hypercalcemia who presented with worsening shortness of breath for 1 week. Being managed for new left pleural effusion, acute on chronic respiratory failure with hypoxia, acute kidney injury, A. fib with RVR. Patient had placement of left Pleurx catheter on 09/02/21. Already had a right pleurx catheter Patient decided to transition to comfort measures only Patient seen and examined. Son at bedside Patient reports generalized weakness Denies any pain or discomfort Reports anorexia and nausea Denies vomiting, abdominal pain. Denies fevers, chills Physical Exam Constitutional: + ill appearing (Chronic) and + well hydrated; no acute distress Eyes: PERRL, conjunctivae normal, anicteric sclerae ENMT: external ear and nose normal, oropharynx normal Respiratory: normal respiratory effort; no respiratory distress Diminished breath sounds lung bases Cardiovascular: Rate/Rhythm: + tachycardic and + irregularly irregular Gastrointestinal (Abdomen): normal bowel sounds, soft, nontender, no hepatosplenomegaly Musculoskeletal: No pedal edema Neurologic: PERRL, EOMI, accommodation nl, no face palsy, no dysarthria Psychiatric: A+Ox3, euthymic affect Genitourinary: Bellamy in situ Results & Data Results & Data ([facility]) Vital Signs (Past 12 Hours) Vital Signs Temp Pulse Resp BP Pulse Ox 09/06/21 07:26 36.4 C L 119 H 16 135/78 94
[2021-09-07] MEDS ORDERED: POLYETHYLENE (MIRALAX) 17 GM PACK PO PRN (11:12)
[2021-09-07] MEDS ORDERED: SIMETHICONE 80 MG CHEW PO PRN (11:12)
--- NOTE | 2021-09-07 13:53 | Hospitalist Progress Note ---
Date of Service September 07, 2021 Assessment & Plan (1) Malignant pleural effusion: (2) Acute respiratory failure with hypoxia: Plan: S/p Left pleurex catheter placement and drainage on 09/02/21 with drainage of 1.6L CXR post procedure show almost complete resolution of left pleural effusion Unlikely left lung pneumonia Patient has a right pleurx catheter placed at [facility] 08/03/21 Pulm recs noted Continue oxygen supplementation Patient and family decided to transition to Comfort measures only on 09/04/21 and to stop all medications Can continue palliative drainage of malignant effusion prn for comfort (3) Metastatic breast cancer: Plan: Was on Arimidex therapy and gets Q3 mo injections with heme/onc. Now on comfort measures only (4) Atrial fibrillation with RVR: Plan: Patient does now want any meds other than comfort (5) Hyponatremia: (6) ANTONIO (acute kidney injury): Plan: Cr acutely bumped at > 5 with baseline of 0.6, BUN elevated at 77 compared to 14 one month ago Was evaluated by Nephrology Currently on [employer] Simethicone prn and miralax prn ordered per patient's request CM working on SNF for placement+hospice Admission and Anticipated Discharge Date Admission Date: September 01, 2021 Subjective 86-year-old woman with DM type II, hypertension, diastolic heart failure, metastatic breast cancer to bone and lungs with right-sided pleural effusion with indwelling Pleurx catheter, hypercalcemia who presented with worsening shortness of breath for 1 week. Being managed for new left pleural effusion, acute on chronic respiratory failure with hypoxia, acute kidney injury, A. fib with RVR. Patient had placement of left Pleurx catheter on 09/02/21. Already had a right pleurx catheter Patient decided to transition to comfort measures only Patient seen and examined. Son at bedside Patient reports generalized weakness Reports abd pain which she described as 'maybe gas pain' Reports constipation and anorexia Denies vomiting Denies fevers, chills Physical Exam Constitutional: + ill appearing (Chronic) and + well hydrated; no acute distress Eyes: PERRL, conjunctivae normal, anicteric sclerae ENMT: external ear and nose normal, oropharynx normal Respiratory: normal respiratory effort; no respiratory distress Cardiovascular: Rate/Rhythm: + tachycardic and + irregularly irregular Gastrointestinal (Abdomen): Inspection/Auscultation: abdomen normal to inspection and normal bowel sounds; abdomen not distended Mild right sided tenderness Musculoskeletal: No pedal edema Neurologic: PERRL, EOMI, accommodation nl, no face palsy, no dysarthria Genitourinary: Bellamy in situ Results & Data Results & Data ([facility]) Vital Signs (Past 12 Hours) Vital Signs Temp Pulse Resp BP Pulse Ox 09/07/21 07:27 36.4 C L 127 H 16 102/54 L 94
[2021-09-07] MEDS ORDERED: oxyCODONE HCL IR 5 MG TAB (IMMEDIATE RELEASE) PO PRN (14:39)
--- NOTE | 2021-09-07 14:46 | Palliative Care Progress Note ---
Date of Service September 07, 2021 Assessment & Plan (1) Abdominal pain: Plan: Continue oxycodone prn. Increase frequency to every two hours as needed. Discussed with RN and family. If furrowed brow persists, would repeat dose. Discussion with family about symptom management. Let them know that opioids can be given in oral liquid concentrate even if she is not able to take po. (2) Dyspnea: Plan: With b/l pleural effusions, does not appear in distress at this time. Son concerned about dry mouth with O2. We talked about oxygen to treat comfort rather than sat and if he feels the discomfort outweighs the benefit, we can stop it. He was uncomfortable with this and is worried about her having distress with breathing. Discussed role of opioids to relieve air hunger. (3) Palliative care encounter: Plan: Focus of care is comfort and symptom management. Awaiting placement. She is getting weaker each day but is stable for transfer at this time. Will continue to monitor as we wait for placement. Family aware that if she were not stable for transfer, she would stay here. (4) Metastatic breast cancer: (5) ANTONIO (acute kidney injury): Admission and Anticipated Discharge Date Admission Date: September 01, 2021 Subjective Having some abdominal pain earlier this afternoon. Had prn oxycodone. Resting at this time. Rouses briefly. Brow furrowed. Family at bedside. Review of Systems Review of Systems: Unobtainable due to reduced consciousness ESAS Pain AD 1/3 Dyspnea by observation 0/3 PPS 30% Physical Exam Constitutional: somnolent, no acute distress ENMT: Mouth: + dry oral mucous membranes Respiratory: normal respiratory effort; no labored breathing Cardiovascular: Extremities: + edema Gastrointestinal (Abdomen): LBM 7/10 Neurologic: lethargic Results & Data ([facility]) Vital Signs (Past 12 Hours) Vital Signs Temp Pulse Resp BP Pulse Ox 09/07/21 07:27 97.5 F L 127 H 16 102/54 L 94 PG Care Time/CCT Total # of Minutes Spent Total Time Spent: 35 Total Time Spent with Patient: Total time spent is greater than 50% in coordination of care (as documented) at patient's floor/unit and/or counseling patient: symptom management, prognosis, family education and support Coding Level of Care Code 11203 Subseq Hosp Care Lvl 3 Diagnoses Abdominal pain R10.9 Dyspnea R06.00 Palliative care encounter Z51.5 Metastatic breast cancer C50.919 ANTONIO (acute kidney injury) N17.9
--- NOTE | 2021-09-08 15:49 | Hospitalist Progress Note ---
Date of Service September 08, 2021 Assessment & Plan (1) Malignant pleural effusion: (2) Acute respiratory failure with hypoxia: Plan: S/p Left pleurex catheter placement and drainage on 09/02/21 with drainage of 1.6L CXR post procedure show almost complete resolution of left pleural effusion Unlikely left lung pneumonia Patient has a right pleurx catheter placed at [facility] 08/03/21 Pulm recs noted Continue oxygen supplementation Patient and family decided to transition to Comfort measures only on 09/04/21 and to stop all medications Can continue palliative drainage of malignant effusion prn for comfort (3) Metastatic breast cancer: Plan: Was on Arimidex therapy and gets Q3 mo injections with heme/onc. Now on comfort measures only (4) Atrial fibrillation with RVR: Plan: Patient does now want any meds other than comfort (5) Hyponatremia: (6) ANTONIO (acute kidney injury): Plan: Cr acutely bumped at > 5 with baseline of 0.6, BUN elevated at 77 compared to 14 one month ago Was evaluated by Nephrology Currently on [employer] Simethicone prn and miralax prn ordered per patient's request CM working on SNF for placement+hospice Admission and Anticipated Discharge Date Admission Date: September 01, 2021 Subjective 86-year-old woman with DM type II, hypertension, diastolic heart failure, metastatic breast cancer to bone and lungs with right-sided pleural effusion with indwelling Pleurx catheter, hypercalcemia who presented with worsening shortness of breath for 1 week. Being managed for new left pleural effusion, acute on chronic respiratory failure with hypoxia, acute kidney injury, A. fib with RVR. Patient had placement of left Pleurx catheter on 09/02/21. Already had a right pleurx catheter Patient decided to transition to comfort measures only Patient seen and examined. Son at bedside Limited ROS due to drowsiness Physical Exam Constitutional: + well hydrated; no acute distress Drowsy Eyes: PERRL, conjunctivae normal, anicteric sclerae Respiratory: normal respiratory effort; no respiratory distress Diminished breath sounds lung bases Cardiovascular: Rate/Rhythm: + tachycardic and + irregularly irregular S1 S2 Gastrointestinal (Abdomen): normal bowel sounds, soft, nontender, no hepatosplenomegaly Musculoskeletal: No pedal edema Neurologic: Limited exam. Drowsy Results & Data Results & Data ([facility]) Vital Signs (Past 12 Hours) Vital Signs Temp Pulse Resp BP Pulse Ox 09/08/21 06:59 34.6 C L 141 H 14 101/67 93
[2021-09-08] MEDS: LORazepam 0.5 MG TAB PO PRN (21:36)
[2021-09-09] MEDS: LORazepam 0.5 MG TAB PO PRN (02:50)
[2021-09-09] MEDS: HYDROmorphone INJ 0.5 MG/0.5 ML SYR IV PRN ×2 (05:42→11:42)
[2021-09-09] MEDS: LORazepam 1 MG in SYRINGE 0.5 ML IV SCH ×3 (12:47→22:14)
--- NOTE | 2021-09-09 13:06 | Palliative Care Progress Note ---
Date of Service September 09, 2021 Assessment & Plan (1) Abdominal pain: Plan: None currently. Actually denies pain when asked. (2) Dyspnea: Plan: Variable. Continue prn hydromorphone with renal failure. I talked with her son, Sudeep, about O2 purely a palliative treatment at this time and if she is not comfortable with it, it can be removed. He is anxious about her being short of breath and would prefer that it continue. We did discuss what to expect with variable breathing pattern as part of the dying process. (3) Delirium: Plan: Likely terminal delirium. Sudeep is tearful and very much wants her to be able to sleep and rest quietly. Discussed routine lorazepam dosing for relief. He is agreeable. Discussed with RN. (4) Palliative care encounter: Plan: Focus of care is comfort and symptom management. She is likely to within the next couple days. Plan has been for transfer to [facility] if bed [facility] available but I do not think that she is stable for transfer at this time. Admission and Anticipated Discharge Date Admission Date: September 01, 2021 Subjective Awake, confused with distress. "Why am I so stupid? Are they going to shoot me?" Pulling at O2. Son at bedside, also distressed. She had one dose of hydromorphone earlier this morning for dyspnea. Review of Systems Review of Systems: Unobtainable due to cognitive status and Unobtainable due to reduced consciousness ESAS Pain 0/3 Dyspnea 0/3 Delirium 2/3 PPS20% Physical Exam Constitutional: + altered mental status; + uncomfortable ENMT: Mouth: + dry oral mucous membranes Respiratory: + uses accessory muscles; no respiratory distress Neurologic: moderate delirium with agitation PG Care Time/CCT Total # of Minutes Spent Total Time Spent with Patient: Total time spent is greater than 50% in coordination of care (as documented) at patient's floor/unit and/or counseling patient: Coding Level of Care Code 24731 Subseq Hosp Care Lvl 2 Diagnoses Abdominal pain R10.9 Dyspnea R06.00 Delirium R41.0 Palliative care encounter Z51.5
--- NOTE | 2021-09-09 23:43 | Hospitalist Progress Note ---
Date of Service September 09, 2021 Assessment & Plan (1) Malignant pleural effusion: (2) Acute respiratory failure with hypoxia: Plan: S/p Left pleurex catheter placement and drainage on 09/02/21 with drainage of 1.6L CXR post procedure show almost complete resolution of left pleural effusion Unlikely left lung pneumonia Patient has a right pleurx catheter placed at [facility] 08/03/21 Pulm recs noted Continue oxygen supplementation Patient and family decided to transition to Comfort measures only on 09/04/21 and to stop all medications Can continue palliative drainage of malignant effusion prn for comfort (3) Metastatic breast cancer: Plan: Was on Arimidex therapy and gets Q3 mo injections with heme/onc. Now on comfort measures only (4) Atrial fibrillation with RVR: Plan: Patient does now want any meds other than comfort (5) Hyponatremia: (6) ANTONIO (acute kidney injury): Plan: Cr acutely bumped at > 5 with baseline of 0.6, BUN elevated at 77 compared to 14 one month ago Was evaluated by Nephrology Currently on [employer] Simethicone prn and miralax prn ordered per patient's request CM working on SNF for placement+hospice Admission and Anticipated Discharge Date Admission Date: September 01, 2021 Subjective Pt was seen and examined for comfort care Lying in bed sleeping comfortable with at bedside said early today pt was agitated She just got ativan and resting now Review of Systems Review of Systems: All systems reviewed & are unremarkable except as noted in Subjective Physical Exam Physical Exam: General- sleeping Head- atraumatic Eyes- PERRL, EOMI, ENT- oropharynx clear Neck- supple, no JVD Lungs- clear to auscultation Heart- no murmur Neuro- sleeping
[2021-09-10] MEDS ORDERED: Nursing to Pharmacy Communication SCH (02:30)
[2021-09-10] MEDS: LORazepam 1 MG in SYRINGE 0.5 ML IV SCH ×6 (02:34→22:59)
[2021-09-10] MEDS: HYDROmorphone INJ 0.5 MG/0.5 ML SYR IV PRN ×3 (07:27→21:36)
--- NOTE | 2021-09-10 09:38 | Hospitalist Progress Note ---
Date of Service September 10, 2021 Assessment & Plan (1) Malignant pleural effusion: (2) Acute respiratory failure with hypoxia: Plan: S/p Left pleurex catheter placement and drainage on 09/02/21 with drainage of 1.6L CXR post procedure show almost complete resolution of left pleural effusion Unlikely left lung pneumonia Patient has a right pleurx catheter placed at [facility] 08/03/21 Pulm recs noted Continue oxygen supplementation Patient and family decided to transition to Comfort measures only on 09/04/21 and to stop all medications Can continue palliative drainage of malignant effusion prn for comfort (3) Metastatic breast cancer: Plan: Was on Arimidex therapy and gets Q3 mo injections with heme/onc Now on comfort measures only (4) Atrial fibrillation with RVR: Plan: Patient does now want any meds other than comfort (5) Hyponatremia: (6) ANTONIO (acute kidney injury): Plan: Cr acutely bumped at > 5 with baseline of 0.6, BUN elevated at 77 compared to 14 one month ago Was evaluated by Nephrology (7) Comfort measures only status: Plan: Appreciate palliative care involvement. Patient with delirium and in setting of ongoing renal failure and cancer. Currently receiving PRN hydromorphone, Ativan which has improved patient comfort per son Simethicone prn and miralax prn ordered per patient's request Focus of care is comfort and symptom management. Admission and Anticipated Discharge Date Admission Date: September 01, 2021 Supervising Physician Co-Signing Physician Notes Pt was seen and examined. Agreed with Mickie KING exam, assessment and plan. Son at bedside. Continue comfort care management. MD Christen Subjective Pt was seen and examined for comfort care. Patient is resting comfortably with son at bedside. States she becomes delirious with waking intermittently but has been comfortable and less agitated this morning. Unable to obtain ROS due to cognitive status. Review of Systems Review of Systems: Unobtainable due to cognitive status Physical Exam Physical Exam: Gen: WD/WN, NAD, lying in bed resting comfortably, A&Ox3 HEENT: Normocephalic, atraumatic, dry mucous membranes Lung: Clear to Auscultation bilaterally, no respiratory distress Heart: Regular rate, regular rhythm Abdomen: Soft, NT, ND Extremities: no edema Skin: Warm, no rash Results & Data Results & Data ([facility]) Vital Signs (Past 12 Hours) Vital Signs O2 Del Method O2 Flow Rate 09/10/21 07:33 Nasal Cannula 3
[2021-09-10 18:08] VITALS: BP 101/67; PULSE 141; TEMP 94.3; O2SAT 93
[2021-09-11] MEDS: LORazepam 1 MG in SYRINGE 0.5 ML IV SCH ×3 (02:40→10:22)
[2021-09-11] MEDS ORDERED: HYOSCYAMINE SULFATE 0.125 MG TAB SL PRN (10:57)
[2021-09-11] MEDS: LORazepam 1 MG TAB SL SCH ×2 (12:04→15:04)
--- NOTE | 2021-09-11 13:09 | Palliative Care Progress Note ---
Date of Service September 11, 2021 Assessment & Plan (1) Delirium: Plan: Terminal delirium. Relieved with routine lorazepam. She has steady state level of medication with routine dosing. Talked with Sudeep about giving medication SL and he is agreeable. (2) Dyspnea: Plan: With malignant pleural effusions and bilateral pleurx catheters. Symptom management with O2 and opioids. She has needed 2-3 doses of hydromorphone daily. Continue prn dosing. (3) Palliative care encounter: Plan: Focus of care is comfort and symptom management. She is likely to within the next day or two. She has had the opportunity to speak with all family members and Sudeep feels that "her chapters are closed". He has been at her side for days and is feeling tired and somewhat anxious. He does have support from his and other family members. (4) Metastatic breast cancer: (5) ANTONIO (acute kidney injury): Admission and Anticipated Discharge Date Admission Date: September 01, 2021 Subjective Moans with care and with repositioning. Less restless overall. Day six of no po intake. Urine output 200cc total in 24 hours. Review of Systems Review of Systems: Unobtainable due to reduced consciousness ESAS Pain by observation 0/3 Dyspnea by observation 0/3 PPS 10% Physical Exam Constitutional: no acute distress ENMT: Mouth: + dry oral mucous membranes Respiratory: no respiratory distress no audible tracheal secretions Cardiovascular: Extremities: + edema no mottling Skin: warm Neurologic: + obtunded PG Care Time/CCT Total # of Minutes Spent Total Time Spent with Patient: Total time spent is greater than 50% in coordination of care (as documented) at patient's floor/unit and/or counseling patient: Coding Level of Care Code 23589 Subseq Hosp Care Lvl 2 Diagnoses Delirium R41.0 Dyspnea R06.00 Palliative care encounter Z51.5 Metastatic breast cancer C50.919 ANTONIO (acute kidney injury) N17.9
--- NOTE | 2021-09-11 15:59 | Communication Note ---
Date of Service: September 11, 2021 note note Called from Nurse that pt ceased to breath. Pt was unresponsive with eyes closed No heart sound, no lung sound noted on auscultation No pulse and no tactile stimuli Pupils no reactive to light Time of : 15:45 Time of Pronounced: 15:50 Son and daughter in law at bedside. Answered all their questions certificate will be complete and sign by me. MD Christen
--- NOTE | 2021-09-13 09:44 | Discharge Summary ---
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 She proceeded to be nauseous but did not vomit, she did have episode of diarrhea this morning as well. She has not been drinking very much fluids in the past 2 days, and admits to being slightly dehydrated. She peed once yesterday and does not remember urinating this morning. She denies any chest pain but admits to feeling short of breath, no palpitations, no flutter, no headache. This has been ongoing and seems better after she has her right-sided pleural effusion drained which occurs every 3 days. Her son at bedside, Sudeep, reports that typical amount of fluid off is 500-550 ml every 3 days. Today 350 cc were removed here in the hospital. She reports feeling much better at this point in time while wearing 6 L of O2, and lying in bed. She is able to sit herself up for us to listen to her lungs, and reports that she uses a Rollator walker at baseline. She has been less mobile in the last 1 to 2 weeks due to general fatigue. She is currently taking Arimidex p.o. daily for breast cancer and receives an injection every 3 months with her last dose being on August 17. Pt was found to be requiring 6 L O2 where at baseline she normally requires 3L. There are new left sided opacity on CXR. Her Cr. today is elevated at 5.14, one month ago on outpt records her cr was 0.6 and BUN 14. Pt is found to be in new onset afib with RVR which she was started on cardizem for in the ER. Will also treat with heparin gtt as no contraindications, and the patient with possibly underlying PE in the setting of increased SOB, hypoxia, and cancer history, although renal function does not allow CTA currently. Admission Exam Per Admitting Provider General: awake, alert, no apparent distress Head: Normocephalic, atraumatic ENT: PERRL, EOMI, no pharyngeal exudate, mucous membranes moist Chest: + pleurex catheter on R posterior chest wall, no surrounding erythema, diminished breath sounds to auscultation at bases bilaterally, on 6 L via NC Cardiac: irregularly irregular with HR in 120s while at bedside, no murmur, no JVD, normal peripheral pulses, good capillary refill Abdominal: NABS x 4 quadrants, soft, nondistended, nontender to palpation, no rebound or guarding Extremities: Normal inspection, no peripheral edema or erythema, calfs nontender to palpation Psych: Normal mood and affect Neuro: AAO x 3, strength intact bilaterally and rated 5/5, no motor deficits, speech is clear, no peripheral sensory deficits Principal Diagnosis (1) Malignant pleural effusion: (2) Acute respiratory failure with hypoxia: (3) Metastatic breast cancer: (4) Atrial fibrillation with RVR: (5) Hyponatremia: (6) ANTONIO (acute kidney injury): (7) Comfort measures only status: Discharge Exam Pt was unresponsive with eyes closed No heart sound, no lung sound noted on auscultation No pulse and no tactile stimuli Pupils no reactive to light Discharge Data Allergies Allergy/AdvReac Type Severity Reaction Status Date / Time Beta-Blockers Allergy Severe FACIAL/MOUTH Verified 06/20/21 22:41 (Beta-Adrenergic Bloc SWELLING Consultations 09/01/21 08:40 ED Decision to Admit Stat 09/01/21 10:07 Consult Cardiology Routine Consult Nephrology Routine 09/01/21 16:02 Consult Pulmonology Routine 09/03/21 15:05 Consult Palliative Care Routine 09/04/21 13:45 Consult Palliative Care Routine Ordered Studies 09/01/21 09:07 US venous doppler LE BI Stat 09/01/21 15:02 US renal/blad retro comp Routine 09/02/21 07:56 US point of care ultrasound Routine XR chest 1V portable at 9:16 AM CLINICAL HISTORY: S/P placement of Left PleurX Catheter. Evaluate for pneumothorax COMPARISON STUDY: 09/02/2021 at 5:07 AM TECHNIQUE: 1 view of the chest FINDINGS: Single frontal view of the chest demonstrates the cardiomediastinal silhouette to be within normal limits. There has been interval placement of a Pleurx catheter at the left lung base with almost complete resolution of previously identified left pleural effusion. There is also been resolution of left basilar atelectasis. There is no associated left-sided pneumothorax. The right side, there is a small to moderate-sized, partially loculated pleural effusion with fluid seen within the minor fissure. The lungs are otherwise clear of confluent alveolar opacities. There is no evidence for vascular congestion. There is no acute osseous pathology. IMPRESSION: 1. Status post left Pleurx catheter placement with almost complete resolution of left pleural effusion and resolution of left basilar atelectasis. 2. No evidence for pneumothorax. 3. Small to moderate size loculated right pleural effusion is present. ACT 112: Negative or not required by law. Electronically signed by: Kamar Phoenix M.D. 09/02/2021 9:29 AM Dictated:09/02/21925 Transcribed: 09/02/21925 SINGLE VIEW CHEST CLINICAL HISTORY: Hypoxia. FINDINGS: An AP, portable, upright chest radiograph is compared to study dated 09/01/2021. Correlation is made with PET/CT dated 03/17/2020. The cardiomediastinal silhouette is unremarkable. A pleural catheter is again seen on the right. There is a small pleural effusion at the right lung base with right basilar opacities. Fluid is also seen along the right minor fissure. There is complete opacification of the left hemithorax which has increased from previous. No pneumothorax is seen. The skeletal structures are osteopenic. 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 Advanced arthritic change is seen in the shoulders and spine. There are chronic bilateral rib fractures. IMPRESSION: 1. There is complete opacification of the left hemithorax consistent with a large pleural effusion and atelectasis of the left lung. This has increased from yesterday. Correlate clinically for the presence of superimposed pneumonia. 2. A pleural catheter is seen on the right. There is a small residual right pleural effusion with right basilar opacities. This is unchanged from yesterday. 3. Diffuse osteoblastic metastatic disease. ACT 112: Negative or not required by law. Electronically signed by: Henrik Lyons M.D. 09/02/2021 7:37 AM Dictated:09/02/21733 Transcribed: 09/02/21733 US renal/blad retro comp CLINICAL HISTORY: ANTONIO, Oligoanuric, h/o mets, evaluate for obstruction. COMPARISON: None. TECHNIQUE: Multiple grayscale and color images of the kidneys and bladder. FINDINGS: Right kidney: The kidney is normal in size and echogenicity. There is no evidence for renal calculus or hydronephrosis. There is no evidence for solid renal mass. There is no evidence for medical renal disease. The kidney measures 10.4 cm in greatest length Left kidney: The kidney is normal in size and echogenicity. There is no evidence for renal calculus or hydronephrosis. There is no evidence for solid renal mass. There is no evidence for medical renal disease. The kidney measures 12.5 cm in greatest length Bladder: The bladder is empty with a Bellamy catheter in place. When scanning the right kidney, the inferior margin right lobe of the liver was also imaged. There is a mass present measuring 2.3 x 2.2 x 2.2 cm. IMPRESSION: 1. Negative ultrasound the kidneys bilaterally with no evidence for hydronephrosis. 2. Bellamy catheter within a collapsed bladder. 3. Evidence for liver mass. ACT 112: Negative or not required by law. Electronically signed by: Kamar Phoenix M.D. 09/01/2021 8:42 PM Dictated:09/01/212039 Transcribed: 09/01/212039 US venous doppler LE CLINICAL HISTORY: leg swelling, acute hypoxia TECHNIQUE: Bilateral lower extremity real-time compression venous ultrasound with Color Doppler imaging. Utilizing real-time ultrasonic imaging multiple real time high-resolution ultrasonic images with compression and noncompression maneuvers of the deep venous system in addition to color doppler imaging were performed from the common femoral vein through the proximal calf veins. COMPARISON: None available at the time of this dictation. FINDINGS: Currently there is normal compressibility of the deep venous system from the common femoral vein through the proximal calf veins. No superficial venous thrombosis is identified. Impression: No evidence of deep venous thrombus. ACT 112: Negative or not required by law. Electronically signed by: Bertin Mccann M.D. 09/01/2021 12:07 PM Dictated:09/01/21 1206 Transcribed: 09/01/21 120 XR chest 1V portable CLINICAL HISTORY: illness, sob TECHNIQUE: Single frontal radiograph of the chest was obtained. Comparison: Comparison is made to chest radiograph 01/27/2020 FINDINGS: No lines and tubes are seen. Cardiomegaly is noted. Left retrocardiac opacity is seen. Opacity in the right midlung is favored to represent atelectasis. There is mild pulmonary edema. Small bilateral pleural effusions are seen. IMPRESSION: 1. Left retrocardiac opacity is favored to represent atelectasis, pneumonia, and/or aspiration. 2. Small bilateral pleural effusions are seen. 3. Mild pulmonary edema. ACT 112: Negative or not required by law. Electronically signed by: Bertin Mccann M.D. 09/01/2021 7:56 AM Dictated:09/01/21754 Transcribed: 09/01/21754 Hospital Course (1) Malignant pleural effusion: (2) Acute respiratory failure with hypoxia: (3) Metastatic breast cancer: (4) Atrial fibrillation with RVR: (5) Hyponatremia: (6) ANTONIO (acute kidney injury): (7) Comfort measures only status: S/p Left pleurex catheter placement and drainage on 09/02/21 with drainage of 1.6L CXR post procedure show almost complete resolution of left pleural effusion Unlikely left lung pneumonia Patient has a right pleurx catheter placed at [facility] 08/03/21 Pulm recs noted Continue oxygen supplementation Patient and family decided to transition to Comfort measures only on 09/04/21 and to stop all medications Can continue palliative drainage of malignant effusion prn for comfort note Called from Nurse that pt ceased to breath. Pt was unresponsive with eyes closed No heart sound, no lung sound noted on auscultation No pulse and no tactile stimuli Pupils no reactive to light Time of : 15:45 Time of Pronounced: 15:50 Son and daughter in law at bedside. Answered all their questions certificate will be complete and sign by me. Total Time Total Time Spent Total Time Spent (In Minutes): 15 minutes Discharge Plan Discharge Items Patient Disposition: Other Date/Time: 09/11/21 15:45
== END 2021-09-11 17:00 | disposition expired | DRG 180 ==
LOC: ED 07:12 → SUATTDRO 10:52 → 2S 10:52 → 3W 09-04 21:54